=== PATIENT | female | born 1950 ===

== ENCOUNTER 2017-03-24 13:09 | Emergency (ER) | payer MEDICARE, MEDICAID ==
[2017-03-24 13:15] VITALS: TEMP 98.6
[2017-03-24] MEDS ORDERED: Albuterol-Ipratrop 3 mg / 0.5 (3 ml) UD IH STA (13:26)
[2017-03-24] MEDS ORDERED: Albuterol-Ipratrop 3 mg / 0.5 (3 ml) UD INH STA (13:26)
[2017-03-24] MEDS ORDERED: Sodium Chloride 0.9% 500 ML IV SCH (13:30)
--- NOTE | 2017-03-24 13:31 | ED PDOC ---
HPI: SOB/CHF/COPD Time Seen by Provider: 03/24/17 13:16 Chief Complaint (Nursing): Shortness Of Breath Chief Complaint (Provider): Dyspnea History Per: Patient History/Exam Limitations: no limitations Onset/Duration Of Symptoms: Days (5) Current Symptoms Are (Timing): Still Present Additional Complaint(s): Pt. with wheezes, cough, congestion, runny nose, weakness all over. B/L rib pain. No abd pain, nausea, vomit, diarrhea. No back pain. No numbness, tingles, headaches, vision changes. Past Medical History Reviewed: Nursing Documentation, Vital Signs Vital Signs: Last Vital Signs Temp 98.6 F 03/24/17 13:12 Pulse 81 03/24/17 13:12 Resp 18 03/24/17 14:10 BP 124/83 03/24/17 13:12 Pulse Ox 98 03/24/17 14:10 - Medical History PMH: Asthma, CVA, HTN, Hypercholesterolemia - Family History Family History: States: Unknown Family Hx - Living Arrangements Living Arrangements: With Family - Home Medications Home Medications: Ambulatory Orders Medication Instructions Recorded Albuterol Sulfate [Proair Hfa] 0.09 mg IH Q6H PRN #2 inh 03/24/17 Azithromycin [Zithromax] 250 mg PO DAILY 5 Days tab 03/24/17 Benzonatate [Tessalon Perles] 100 mg PO BID PRN 5 Days sgl 03/24/17 predniSONE [predniSONE Tab] 20 mg PO BID 5 Days tab 03/24/17 - Allergies Allergies/Adverse Reactions: Allergies Allergy/AdvReac Type Severity Reaction Status Date / Time No Known Allergies Allergy Verified 03/24/17 13:10 Review of Systems ROS Statement: Except As Marked, All Systems Reviewed And Found Negative Constitutional: Positive for: Weakness ENT: Positive for: Nose Pain, Nose Discharge, Nose Congestion Respiratory: Positive for: Cough, Shortness of Breath, Sputum, Wheezing Neurological: Positive for: Weakness Physical Exam - Reviewed Nursing Documentation Reviewed: Yes Vital Signs Reviewed: Yes - Physical Exam Appears: Positive for: Non-toxic, No Acute Distress Head Exam: Positive for: ATRAUMATIC, NORMAL INSPECTION, NORMOCEPHALIC Skin: Positive for: Normal Color, Warm, DRY Eye Exam: Positive for: EOMI, Normal appearance, PERRL ENT: Positive for: Nasal Congestion Neck: Positive for: Normal, Painless ROM Cardiovascular/Chest: Positive for: Regular Rate, Rhythm Respiratory: Positive for: Wheezing Gastrointestinal/Abdominal: Positive for: Normal Exam, Bowel Sounds, Soft. Negative for: Tenderness Back: Positive for: Normal Inspection. Negative for: L CVA Tenderness, R CVA Tenderness Extremity: Positive for: Normal ROM. Negative for: Tenderness, Pedal Edema Neurologic/Psych: Positive for: Alert, Oriented - Laboratory Results Result Diagrams: 03/24/17 13:34 03/24/17 13:34 Interpretation Of Abn Labs: no acute - ECG ECG: Positive for: Interpreted By Me, Viewed By Me ECG Rhythm: Positive for: Normal QRS, Normal ST Segment, Sinus Rhythm O2 Sat by Pulse Oximetry: 100 Pulse Ox Interpretation: Normal - Radiology X-Ray: Read By Radiologist X-Ray Interpretation: No Acute Disease - Progress ED Course And Treament: 1459: Stable. AAOx3. Pain free. Tolerated PO. Smiling. Fu with pcp. Disposition - Clinical Impression Clinical Impression: Asthma, Bronchitis - Patient ED Disposition Is Patient to be Admitted: No Counseled Patient/Family Regarding: Studies Performed, Diagnosis, Need For Followup, Rx Given - Disposition Referrals: [facility] [Outside] - 03/25/17 Disposition: Routine/Home Disposition Time: 15:00 Condition: STABLE Additional Instructions: Return if not better in 3 days. Prescriptions: Albuterol Sulfate [Proair Hfa] 0.09 mg IH Q6H PRN #2 inh PRN Reason: Wheezing Azithromycin [Zithromax] 250 mg PO DAILY 5 Days tab Benzonatate [Tessalon Perles] 100 mg PO BID PRN 5 Days sgl PRN Reason: Cough predniSONE [predniSONE Tab] 20 mg PO BID 5 Days tab Instructions: Acute Bronchitis (ED), Asthma (ED) Forms: [employer] (Kinyarwanda) Print Language: KINYARWANDA
[2017-03-24] MEDS ORDERED: Albuterol-Ipratrop 3 mg / 0.5 (3 ml) UD ONE (13:35)
[2017-03-24 13:53] LABS: ABG ALLEN TEST YES; ARTERIAL BLOOD GAS HCO3 27.1 mmol/L (21-28); ARTERIAL BLOOD GAS O2 SAT 100.3 % (95-98); ARTERIAL BLOOD GAS PCO2 40 mm/Hg (35-45); ARTERIAL BLOOD GAS PH 7.44 (7.35-7.45); ARTERIAL BLOOD GAS PO2 90 mm/Hg (80-100); ARTERIAL BLOOD GAS TCO2 28.4 mmol/L (22-28)
[2017-03-24 14:11] LABS: BASO % 0.3 % (0.0-2.0); EOS # 0.1 K/uL (0.0-0.7); EOS % 1.6 % (0.0-4.0); LYMPH # 3.5 K/uL (1.0-4.3); LYMPH % 46.6 % (20.0-40.0); MEAN CELL VOLUME 86.2 fl (81.0-99.0); MEAN CORPUSCULAR HEMOGLOBIN 27.9 pg (27.0-31.0); MEAN CORPUSCULAR HGB CONC 32.4 g/dL (33.0-37.0); MONO # 0.8 K/uL (0.0-0.8); MONO % 10.1 % (0.0-10.0); NEUT # 3.1 K/uL (1.8-7.0); NEUT % 41.4 % (50.0-75.0); NRBC % 0.1 % (0.0-0.0); RBC 4.68 Mil/uL (3.80-5.20); RED CELL DISTRIBUTION WIDTH 13.1 % (11.5-14.5); WHITE BLOOD COUNT 7.6 K/uL (4.8-10.8)
[2017-03-24 14:19] LABS: PARTIAL THROMBOPLASTIN TIME 28.7 Seconds (25.6-37.1); PROTHROMBIN TIME 11.6 Seconds (9.8-13.1)
[2017-03-24 14:21] LABS: ALB/GLOB RATIO 1.3 (1.0-2.1); ALBUMIN 4.5 g/dL (3.5-5.0); ALT/SGPT 30 U/L (9-52); AST/SGOT 28 U/L (14-36); BLOOD UREA NITROGEN 15 mg/dl (7-17); CALCIUM 9.8 mg/dL (8.4-10.2); GFR AFRICAN-AMERICAN > 60; GFR NON-AFRICAN AMERICAN > 60; MAGNESIUM 2.1 MG/DL (1.6-2.3)
--- NOTE | 2017-03-24 14:24 | RAD ---
HISTORY: Sepsis Patient COMPARISON: No prior. FINDINGS: LUNGS: There are low lung volumes with mild crowding appreciated at the lung bases. No appreciable focal infiltrate is noted. PLEURA: No significant pleural effusion identified, no pneumothorax apparent. CARDIOVASCULAR: Heart is top normal in size. Aorta is normal in size. No CHF is seen. OSSEOUS STRUCTURES: No significant abnormalities. VISUALIZED UPPER ABDOMEN: Normal. OTHER FINDINGS: None. IMPRESSION: Poor expiratory effort with crowding at the lung bases. No focal infiltrate seen.
[2017-03-24 14:31] LABS: B-TYPE NATRIURETIC PEPTIDE 20.3 pg/ml (0-900)
[2017-03-24 15:19] VITALS: BP 116/69; PULSE 62; RESP 17; O2SAT 98
--- NOTE | 2017-03-25 08:54 | CARD ---
APPROVED REPORT EKG Measurement Heart [id number] <Conclusion> Normal sinus rhythm Left axis deviation Abnormal ECG
== END 2017-03-24 15:25 | disposition home or self-care (01) ==
LOC: H.ER 13:09
DX: J20.9 Acute bronchitis, unspecified (principal); J45.909 Unspecified asthma, uncomplicated; E78.00 Pure hypercholesterolemia, unspecified; I10 Essential (primary) hypertension; Z86.73 Personal history of transient ischemic attack (TIA), and cerebral infarction without residual deficits
CPT/HCPCS: 36600; 71045; 80053; 82803; 83735; 83880; 84100; 84484; 85025; 85610; 85730; 87040; 87804; 93005; 94640; 96360; 99285; J7040

== ENCOUNTER 2018-06-24 23:56 | Inpatient (IN) | payer MEDICARE, MEDICAID ==
[2018-06-25] MEDS ORDERED: Sodium Chloride 0.9% 1,000 ML IV STA (00:24)
--- NOTE | 2018-06-25 00:38 | ED PDOC ---
HPI: Abdomen Time Seen by Provider: 06/25/18 00:02 Chief Complaint (Nursing): Abdominal Pain Chief Complaint (Provider): Abdominal Pain History Per: Patient History/Exam Limitations: no limitations Onset/Duration Of Symptoms: Hrs (x 7) Current Symptoms Are (Timing): Still Present Context: Food Location Of Pain/Discomfort: Diffuse Quality Of Discomfort: "Pain" Associated Symptoms: Vomiting, Constipation (intermittent) Alleviating Factors: None Last Bowel Movement: Today Additional Complaint(s): 68 year old female with a history of HTN and high cholesterol presents to the ED with sudden onset abdominal pain 7 hours prior to arrival associated with two episodes of non-bloody, non-bilious vomiting and abdominal distension. Patient reports a small bowel movement today, but otherwise intermittent constipation. She took Pepcid and Dexilant, her medications for gastritis, with no relief. Patient also took Mylanta and vomited. She is currently on medications for a bladder infection. Otherwise, she denies diarrhea and offers no additional complaints. PMD: Dr. Jarquin Past Medical History Reviewed: Historical Data, Nursing Documentation, Vital Signs Vital Signs: Last Vital Signs Temp 98.6 F 06/24/18 23:58 Pulse 62 06/24/18 23:58 Resp 18 06/24/18 23:58 BP 143/87 06/24/18 23:58 Pulse Ox 98 06/24/18 23:58 - Medical History PMH: Asthma, CVA, HTN, Hypercholesterolemia - Surgical History Surgical History: Cholecystectomy Other surgeries: hysterectomy - Family History Family History: States: Unknown Family Hx - Social History Current smoker - smoking cessation education provided: No Alcohol: None Drugs: Denies - Home Medications Home Medications: Ambulatory Orders Medication Instructions Recorded Alprazolam [Xanax] 0.5 mg PO PRN PRN 06/25/18 Carbamazepine [Carbatrol] 200 mg PO DAILY 06/25/18 Clopidogrel [Plavix] 75 mg PO DAILY 06/25/18 Famotidine [Pepcid] 20 mg PO DAILY 06/25/18 Meclizine [Meclizine*] 25 mg PO DAILY 06/25/18 Nitrofurantoin Macrocrystal 50 mg PO BID 06/25/18 [Macrodantin] Rosuvastatin Calcium [Crestor] 5 mg PO DAILY 06/25/18 amLODIPine [Norvasc] 5 mg PO DAILY 06/25/18 carBAMazepine [TEGretol-XR] 200 mg pe PO DAILY 06/25/18 - Allergies Allergies/Adverse Reactions: Allergies Allergy/AdvReac Type Severity Reaction Status Date / Time No Known Allergies Allergy Verified 03/24/17 13:10 Review of Systems ROS Statement: Except As Marked, All Systems Reviewed And Found Negative Gastrointestinal: Positive for: Vomiting (x 2), Abdominal Pain, Constipation (intermittent), Other (distension). Negative for: Diarrhea Physical Exam - Reviewed Nursing Documentation Reviewed: Yes Vital Signs Reviewed: Yes - Physical Exam Appears: Positive for: In Acute Distress (mild painful distress) Head Exam: Positive for: ATRAUMATIC, NORMOCEPHALIC Skin: Positive for: Warm, Dry Eye Exam: Positive for: EOMI, PERRL ENT: Negative for: Pharyngeal Erythema, Tonsillar Exudate Neck: Positive for: Painless ROM, Supple Cardiovascular/Chest: Positive for: Regular Rate, Rhythm. Negative for: Murmur Respiratory: Positive for: Normal Breath Sounds. Negative for: Respiratory Distress Gastrointestinal/Abdominal: Positive for: Soft, Tenderness (diffuse), Distended (diffusely ), Guarding (voluntary). Negative for: Mass (palpable), Rebound Back: Positive for: Normal Inspection. Negative for: L CVA Tenderness, R CVA Tenderness Extremity: Positive for: Normal ROM. Negative for: Deformity Lymphatic: Negative for: Adenopathy Neurological/Psych: Positive for: Awake, Alert. Negative for: Motor/Sensory Deficits - Laboratory Results Result Diagrams: 06/28/18 05:40 06/28/18 05:40 - ECG O2 Sat by Pulse Oximetry: 98 (RA) Pulse Ox Interpretation: Normal Medical Decision Making Medical Decision Makin:19 Impression: abdominal pain with distension Differential diagnoses include but are not limited to: obstruction, reflux, gastroenteritis hernia, colitis, diverticulitis Initial Plan: --CT Abd & Pelvis --Obstructive series [RAD] --CBC --CMP --Lipase --Lactic acid --Blood cx --Urine cx --UA --NS IV 1,000 mls --Zofran 8 mg IV 02:17 CT Abd & Pelvis COMMENTS: Uncomplicated colonic diverticulosis. Moderate partial small bowel obstruction. Transition zone in the right lower quadrant. No evidence of bowel perforation or pneumatosis intestinalis. Moderate amount of fecal residue is noted in the large bowel suggestive of constipation. Hysterectomy. The liver is of uniform attenuation without mass or defect. There is no intra or extrahepatic biliary ductal dilatation. The spleen is normal. The gallbladder is surgically absent. The pancreas is of normal contour and attenuation characteristics. There is no evidence of adrenal mass. Both kidneys demonstrate prompt and equal nephrograms. The kidneys are normal in size, shape and configuration. There is no evidence of renal or ureteral mass. No renal or ureteral calculi are identified. There is no hydroureter or hydronephrosis. No evidence for appendicitis. There is no evidence of abdominal ascites or lymphadenopathy. There is no evidence of intrinsic or extrinsic bladder mass. There is no pelvic ascites or lymphadenopathy. Images of the lung bases show no evidence of pleural or parenchymal mass. There are no pleural effusions. The bony structures are free of lytic or blastic lesions. Grade 1 anterolisthesis of L5 on S1 measuring 3.2 mm. IMPRESSION: Uncomplicated colonic diverticulosis. Moderate partial small bowel obstruction. Transition zone in the right lower quadrant. No evidence of bowel perforation or pneumatosis intestinalis. Moderate amount of fecal residue is noted in the large bowel suggestive of constipation. Hysterectomy. 02:26 Discussed case with Stephan Norton, ADVERTISING DISPLAY ROTATOR for Dr. Rolle, for admission Also discussed with Dr. Zapien, surgical asst for Dr. Vallejo. Patient will be admitted to the hospital. Discussed findings and plan of care with patient and her who both agreed. Scribe Attestation: Documented by Meredith Abreu, acting as a scribe for Yasmin Singh MD Provider Scribe Attestation: All medical record entries made by the Scribe were at my direction and personally dictated by me. I have reviewed the chart and agree that the record accurately reflects my personal performance of the history, physical exam, medical decision making, and the department course for this patient. I have also personally directed, reviewed, and agree with the discharge instructions and disposition Disposition - Clinical Impression Clinical Impression: Small bowel obstruction, partial - Patient ED Disposition Is Patient to be Admitted: Yes - Disposition Disposition Time: 02:26 Condition: FAIR - Pt Status Changed To: Hospital Disposition Of: Inpatient - Admit Certification Admit to Inpatient:: After my assessment, the patient will require hospitalization for at least two midnights. This is because of the severity of symptoms shown, intensity of services needed, and/or the medical risk in this patient being treated as an outpatient. - POA Present On Arrival: None
[2018-06-25 01:02] LABS: BASO # 0.1 K/uL (0.0-0.2); BASO % 0.8 % (0.0-2.0); EOS % 0.4 % (0.0-4.0); HEMOGLOBIN 13.4 g/dL (12.0-16.0); LYMPH # 1.7 K/uL (1.0-4.3); LYMPH % 12.6 % (20.0-40.0); MEAN CELL VOLUME 86.7 fl (81.0-99.0); MEAN CORPUSCULAR HEMOGLOBIN 28.5 pg (27.0-31.0); MEAN CORPUSCULAR HGB CONC 32.9 g/dL (33.0-37.0); MONO # 0.8 K/uL (0.0-0.8); NEUT # 10.7 K/uL (1.8-7.0); NEUT % 80.2 % (50.0-75.0); NRBC % 0.1 % (0.0-0.0); RBC 4.71 Mil/uL (3.80-5.20); RED CELL DISTRIBUTION WIDTH 13.1 % (11.5-14.5); WHITE BLOOD COUNT 13.4 K/uL (4.8-10.8)
[2018-06-25 01:07] LABS: PROTHROMBIN TIME 11.6 Seconds (9.8-13.1)
[2018-06-25 01:09] LABS: PARTIAL THROMBOPLASTIN TIME 25.9 Seconds (25.6-37.1)
[2018-06-25 01:12] LABS: ALB/GLOB RATIO 1.4 (1.0-2.1); ALBUMIN 4.8 g/dL (3.5-5.0); ALT/SGPT 31 U/L (9-52); AST/SGOT 35 U/L (14-36); BLOOD UREA NITROGEN 12 mg/dl (7-17); CALCIUM 9.6 mg/dL (8.4-10.2); GFR NON-AFRICAN AMERICAN > 60; LIPASE 64 U/L (23-300)
[2018-06-25] MEDS ORDERED: Iohexol 300 100 ML IJ ONE (01:21)
[2018-06-25] MEDS ORDERED: Sodium Chloride 0.9% 50 ML IV ONE (01:22)
[2018-06-25] MEDS ORDERED: Morphine 4 MG/ML VIAL IVP STA (01:52)
[2018-06-25] MEDS ORDERED: Morphine 4 MG/ML VIAL ONE (01:55)
[2018-06-25 02:04] LABS: SQUAMOUS EPITHIAL < 1 /hpf (0-5); URINE BILIRUBIN NEGATIVE (NEGATIVE); URINE BLOOD NEGATIVE (NEGATIVE); URINE CLARITY SLIGHTY-CLOUDY (Clear); URINE COLOR YELLOW (YELLOW); URINE GLUCOSE (UA) NEG (NEGATIVE); URINE LEUKOCYTE ESTERASE NEG Leu/uL (Negative); URINE PROTEIN NEGATIVE (NEGATIVE); URINE UROBILINOGEN 0.2-1.0 mg/dL (0.2-1.0)
--- NOTE | 2018-06-25 02:47 | CP.PCM.CON ---
<ZapienJoshua - Last Filed: 06/25/18 06:37> History of Present Illness - History of Present Illness History of Present Illness: 68F with PMHx of HTN, hyperlipidemia, stroke, presents to [facility] ED with complaints of abdominal pain. Patient reports abdominal pain began yesterday. She reports having three bouts of non bloody emesis prior to arriving to hospital. Patient also complained of progressive abdominal distention which prompted her to come to hospital. Patient states she had a small bowel movement yesterday. At time of examination, patient reported feeling better since receiving analgesics and anti-emetics. States pain is mainly along mid epigastric region. Patient also reported passing some flatus. She denies chest pain/SOB, diarrhea, dysuria. PMHx: as stated above PSH: open cholecystectomy, FORTINO All: NKDA Review of Systems - Review of Systems All systems: reviewed and no additional remarkable complaints except Review of Systems: as per HPI Past Patient History - Past Social History Alcohol: None Drugs: Denies - CARDIAC Hx Hypercholesterolemia: Yes Hx Hypertension: Yes - PULMONARY Hx Asthma: Yes - NEUROLOGICAL HX Cerebrovascular Accident: Yes - PSYCHIATRIC Hx Substance Use: No - SURGICAL HISTORY Hx Cholecystectomy: Yes - ANESTHESIA Hx Anesthesia: Yes Hx Anesthesia Reactions: No Meds Allergies/Adverse Reactions: Allergies Allergy/AdvReac Type Severity Reaction Status Date / Time No Known Allergies Allergy Verified 03/24/17 13:10 - Medications Medications: Current Medications Sodium Chloride (Sodium Chloride 0.9%) 1,000 mls @ 150 mls/hr IV .Q6H40M STA Stop: 06/25/18 07:03 Last Admin: 06/25/18 00:50 Dose: 150 mls/hr Physical Exam - Constitutional Appears: No Acute Distress - Head Exam Head Exam: NORMOCEPHALIC - Eye Exam Eye Exam: EOMI, Normal appearance - ENT Exam ENT Exam: Mucous Membranes Moist - Respiratory Exam Respiratory Exam: NORMAL BREATHING PATTERN - Cardiovascular Exam Cardiovascular Exam: +S1, +S2 - GI/Abdominal Exam GI & Abdominal Exam: Soft, Tenderness. absent: Distended, Guarding - Neurological Exam Neurological exam: Alert, Oriented x3 - Psychiatric Exam Psychiatric exam: Normal Mood - Skin Skin Exam: Dry, Intact, Warm Results - Vital Signs Recent Vital Signs: Last Vital Signs Temp 98.6 F 06/24/18 23:58 Pulse 62 06/24/18 23:58 Resp 18 06/24/18 23:58 BP 143/87 06/24/18 23:58 Pulse Ox 98 06/25/18 02:32 - Labs Result Diagrams: 06/25/18 00:40 06/25/18 00:40 Labs: Laboratory Results - last 24 hr 06/25/18 06/25/18 06/25/18 00:40 00:40 00:40 WBC 13.4 H D RBC 4.71 Hgb 13.4 Hct 40.8 MCV 86.7 MCH 28.5 MCHC 32.9 L RDW 13.1 Plt Count 245 MPV 9.0 Neut % (Auto) 80.2 H Lymph % (Auto) 12.6 L [place] % (Auto) 6.0 Eos % (Auto) 0.4 Baso % (Auto) 0.8 Neut # (Auto) 10.7 H Lymph # (Auto) 1.7 [place] # (Auto) 0.8 Eos # (Auto) 0.0 Baso # (Auto) 0.1 PT INR APTT Sodium 137 Potassium 4.3 Chloride 97 L Carbon Dioxide 31 H Anion Gap 13 BUN 12 Creatinine 0.6 L Est GFR ( Amer) > 60 Est GFR (Non-Af Amer) > 60 Random Glucose 114 H Lactic Acid 1.2 Calcium 9.6 Total Bilirubin 0.5 AST 35 ALT 31 Alkaline Phosphatase 133 H D Total Protein 8.2 Albumin 4.8 Globulin 3.4 Albumin/Globulin Ratio 1.4 Lipase 64 Urine Color Urine Clarity Urine pH Ur Specific [place] Urine Protein Urine Glucose (UA) Urine Ketones Urine Blood Urine Nitrate Urine Bilirubin Urine Urobilinogen Ur Leukocyte Esterase Urine RBC (Auto) Urine Microscopic WBC Ur Squamous Epith Cells Blood Type Antibody Screen BBK History Checked 06/25/18 06/25/18 06/25/18 00:40 00:40 01:53 WBC RBC Hgb Hct MCV MCH MCHC RDW Plt Count MPV Neut % (Auto) Lymph % (Auto) [place] % (Auto) Eos % (Auto) Baso % (Auto) Neut # (Auto) Lymph # (Auto) [place] # (Auto) Eos # (Auto) Baso # (Auto) PT 11.6 INR 1.0 APTT 25.9 Sodium Potassium Chloride Carbon Dioxide Anion Gap BUN Creatinine Est GFR ( Amer) Est GFR (Non-Af Amer) Random Glucose Lactic Acid Calcium Total Bilirubin AST ALT Alkaline Phosphatase Total Protein Albumin Globulin Albumin/Globulin Ratio Lipase Urine Color Yellow Urine Clarity Slighty-cloudy Urine pH 9.0 Ur Specific [place] 1.015 Urine Protein Negative Urine Glucose (UA) Neg Urine Ketones Trace Urine Blood Negative Urine Nitrate Negative Urine Bilirubin Negative Urine Urobilinogen 0.2-1.0 Ur Leukocyte Esterase Neg Urine RBC (Auto) 1 Urine Microscopic WBC 1 Ur Squamous Epith Cells < 1 Blood Type O POSITIVE Antibody Screen Negative BBK History Checked No verified bt Assessment & Plan - Assessment and Plan (Free Text) Assessment: 68Fw pSBO with transition point in RLQ Plan: Conservative management NPO IVF Analgesics Anti-emetics Encourage ambulation Will monitor Further recs per Dr. Yoni Amaro PGY3 <Fortunato Vallejo - Last Filed: 06/25/18 12:37> Meds - Medications Medications: Current Medications Famotidine (Pepcid) 20 mg IV Q12 [facility] Lactated Ringer's (Lactated Ringer's) 1,000 mls @ 90 mls/hr IV .Q11H7M FIONA Last Admin: 06/25/18 10:40 Dose: 90 mls/hr Morphine Sulfate (Morphine) 2 mg IVP Q6 PRN PRN Reason: Pain, moderate (4-7) Ondansetron HCl (Zofran Inj) 4 mg IVP Q4 PRN PRN Reason: Nausea/Vomiting Last Admin: 06/25/18 09:08 Dose: 4 mg Sodium Phosphate (Fleet Enema) 135 ml MT ONCE ONE Stop: 06/25/18 12:33 Results - Vital Signs Recent Vital Signs: Last Vital Signs Temp 97.7 F 06/25/18 08:28 Pulse 53 L 06/25/18 08:28 Resp 18 06/25/18 08:28 BP 133/80 06/25/18 08:28 Pulse Ox 100 06/25/18 08:28 - Labs Result Diagrams: 06/25/18 00:40 06/25/18 00:40 Labs: Laboratory Results - last 24 hr 06/25/18 06/25/18 06/25/18 00:40 00:40 00:40 WBC 13.4 H D RBC 4.71 Hgb 13.4 Hct 40.8 MCV 86.7 MCH 28.5 MCHC 32.9 L RDW 13.1 Plt Count 245 MPV 9.0 Neut % (Auto) 80.2 H Lymph % (Auto) 12.6 L [place] % (Auto) 6.0 Eos % (Auto) 0.4 Baso % (Auto) 0.8 Neut # (Auto) 10.7 H Lymph # (Auto) 1.7 [place] # (Auto) 0.8 Eos # (Auto) 0.0 Baso # (Auto) 0.1 PT INR APTT Sodium 137 Potassium 4.3 Chloride 97 L Carbon Dioxide 31 H Anion Gap 13 BUN 12 Creatinine 0.6 L Est GFR ( Amer) > 60 Est GFR (Non-Af Amer) > 60 Random Glucose 114 H Lactic Acid 1.2 Calcium 9.6 Total Bilirubin 0.5 AST 35 ALT 31 Alkaline Phosphatase 133 H D Total Protein 8.2 Albumin 4.8 Globulin 3.4 Albumin/Globulin Ratio 1.4 Lipase 64 Urine Color Urine Clarity Urine pH Ur Specific [place] Urine Protein Urine Glucose (UA) Urine Ketones Urine Blood Urine Nitrate Urine Bilirubin Urine Urobilinogen Ur Leukocyte Esterase Urine RBC (Auto) Urine Microscopic WBC Ur Squamous Epith Cells Blood Type Blood Type Confirm Antibody Screen BBK History Checked 06/25/18 06/25/18 06/25/18 00:40 00:40 01:53 WBC RBC Hgb Hct MCV MCH MCHC RDW Plt Count MPV Neut % (Auto) Lymph % (Auto) [place] % (Auto) Eos % (Auto) Baso % (Auto) Neut # (Auto) Lymph # (Auto) [place] # (Auto) Eos # (Auto) Baso # (Auto) PT 11.6 INR 1.0 APTT 25.9 Sodium Potassium Chloride Carbon Dioxide Anion Gap BUN Creatinine Est GFR ( Amer) Est GFR (Non-Af Amer) Random Glucose Lactic Acid Calcium Total Bilirubin AST ALT Alkaline Phosphatase Total Protein Albumin Globulin Albumin/Globulin Ratio Lipase Urine Color Yellow Urine Clarity Slighty-cloudy Urine pH 9.0 Ur Specific [place] 1.015 Urine Protein Negative Urine Glucose (UA) Neg Urine Ketones Trace Urine Blood Negative Urine Nitrate Negative Urine Bilirubin Negative Urine Urobilinogen 0.2-1.0 Ur Leukocyte Esterase Neg Urine RBC (Auto) 1 Urine Microscopic WBC 1 Ur Squamous Epith Cells < 1 Blood Type O POSITIVE Blood Type Confirm Antibody Screen Negative BBK History Checked No verified bt 06/25/18 09:40 WBC RBC Hgb Hct MCV MCH MCHC RDW Plt Count MPV Neut % (Auto) Lymph % (Auto) [place] % (Auto) Eos % (Auto) Baso % (Auto) Neut # (Auto) Lymph # (Auto) [place] # (Auto) Eos # (Auto) Baso # (Auto) PT INR APTT Sodium Potassium Chloride Carbon Dioxide Anion Gap BUN Creatinine Est GFR ( Amer) Est GFR (Non-Af Amer) Random Glucose Lactic Acid Calcium Total Bilirubin AST ALT Alkaline Phosphatase Total Protein Albumin Globulin Albumin/Globulin Ratio Lipase Urine Color Urine Clarity Urine pH Ur Specific [place] Urine Protein Urine Glucose (UA) Urine Ketones Urine Blood Urine Nitrate Urine Bilirubin Urine Urobilinogen Ur Leukocyte Esterase Urine RBC (Auto) Urine Microscopic WBC Ur Squamous Epith Cells Blood Type Blood Type Confirm O POSITIVE Antibody Screen BBK History Checked Assessment & Plan - Assessment and Plan (Free Text) Plan: All medical record entries made by the resident were at my direction and personally dictated by me. I have reviewed the chart and agree that the record accurately reflects my personal performance of the history, physical exam, medical decision making. On review of imaging, she has gas and stool down to rectal. However, on CT scan there is a clear transition from distended to non-distended small bowel. She notes a history of lower abdominal surgery which may be predispode her to adhesions. Ordered Fleets enema. If she does not open up over the next 24-48 hours, she may need diagnostic laparoscopy.
--- NOTE | 2018-06-25 09:49 | RAD ---
Date of service: 06/25/2018 PROCEDURE: Radiographs of the chest and abdomen (obstructive series) HISTORY: abd pain r/o sbo COMPARISON: No prior. TECHNIQUE: AP radiograph of the chest, with upright and supine radiographs of the abdomen. 3 views obtained. FINDINGS: CHEST: Lungs: Clear. Cardiovascular: Heart size top normal. No pulmonary vascular congestion. There is presence of aortic atherosclerotic calcification on x-ray. Pleura: No pleural fluid. No pneumothorax. Other findings: Possible bone island right humerus ABDOMEN AND PELVIS: Bowel: Right upper quadrant cholecystectomy clips.. Multiple small bowel dilated loops a distal small bowel obstruction is suspect. No colonic dilatation seen. Free air: None. Bones: Degenerative thoraco lumbar spondylosis. Bilateral hip arthrosis. And inferior lumbar facet hypertrophic arthrosis. Other findings: Some of the mottled density in the right abdomen may even be fecalization of small bowel loops as additional loops are seen right lateral to it. IMPRESSION: No pulmonary infiltrate. Findings concerning for a distal small bowel obstruction. No free air seen Other findings as above. These findings are in agreement with the preliminary ER reading.
--- NOTE | 2018-06-25 10:06 | CT ---
Date of service: 06/25/2018 PROCEDURE: CT Abdomen and Pelvis with contrast HISTORY: abdominal pain COMPARISON: None. TECHNIQUE: Contrast dose: 95 cc of Omnipaque 300 Radiation dose: Total exam DLP = 518.75 mGy-cm. This CT exam was performed using one or more of the following dose reduction techniques: Automated exposure control, adjustment of the mA and/or kV according to patient size, and/or use of iterative reconstruction technique. FINDINGS: LOWER THORAX: Approximately 1 cm right retroareolar breast nodular density is seen. Its significance, if any chronicity-are unknown. Correlate with mammography and ultrasound. LIVER: Unremarkable. No gross lesion or ductal dilatation. GALLBLADDER AND BILE DUCTS: Status post cholecystectomy gallbladder fossa clips present. No suspected dilated ducts. PANCREAS: Unremarkable. No gross lesion or ductal dilatation. SPLEEN: Unremarkable. ADRENALS: Unremarkable. No mass. KIDNEYS AND URETERS: Unremarkable. No hydronephrosis. No solid mass. VASCULATURE: Unremarkable. No aortic aneurysm. No aortic atherosclerotic calcification or mural plaque present. There is some atherosclerotic calcification in the right common iliac artery. BOWEL: Small bowel dilatation. Including right-sided small bowel fecalization. The transition point appears in the right lower abdomen no obstructing mass is identified.. No pneumatosis. No free air seen. The colon is not distended.. A few right-sided colonic diverticuli are noted. No complicating diverticulitis suggested. Moderate stool is seen also in the nondistended right colon APPENDIX: Normal appendix. PERITONEUM: Unremarkable. No free fluid. No free air. LYMPH NODES: Unremarkable. No enlarged lymph nodes. BLADDER: Unremarkable. REPRODUCTIVE: Unremarkable. BONES: Lumbar spondylosis, with probable elements of thoracolumbar and lumbosacral additional elements. OTHER FINDINGS: Minimal anterior subluxation of L4 relative to L5. No spondylolysis. Status laxity from associated facet hypertrophic arthrosis is inferred. Minimal disc space narrowing posteriorly at L5-S1. No fracture seen. IMPRESSION: Findings concerning for a distal small bowel obstruction. No pneumatosis seen. No free air seen. Transition point likely in the right lower abdomen. Right small-bowel fecalization. Uncomplicated right colonic diverticulosis. The above findings were conveyed by the preliminary [facility] report. This portion is concordant. Incidentally noted is a right breast retroareolar haseeb density of unknown, if any clinical significance. This was not mentioned in the preliminary [facility] report. Correlation with mammography and ultrasound is advised. Comments: Study marked for PA review .
[2018-06-25] MEDS: Lactated Ringer's 1,000 ML IV SCH ×2 (10:40→20:59)
--- NOTE | 2018-06-25 13:50 | CP.PCM.CON ---
History of Present Illness - History of Present Illness History of Present Illness: 68 year old female with a history of HTN and high cholesterol presents to the ED with sudden onset abdominal pain 7 hours prior to arrival associated with two episodes of non-bloody, non-bilious vomiting and abdominal distension. Referred for ID eval and antibiotic management - Medical History PMH: Asthma, CVA, HTN, Hypercholesterolemia - Surgical History Surgical History: Cholecystectomy Other surgeries: hysterectomy FH- + ovarian CA DM Review of Systems - Constitutional Constitutional: As Per HPI - EENT Eyes: absent: As Per HPI, Blind Spots, Blurred Vision, Change in Vision, Decreased Night Vision, Diplopia, Discharge, Dry Eye, Exophthalmos, Floaters, Irritation, Itchy Eyes, Loss of Peripheral Vision, Pain, Photophobia, Requires Corrective Lenses, Sees Flashes, Spots in Vision, Tunnel Vision, Other Visual Disturbances, Loss of Vision, Other Ears: absent: As Per HPI, Decreased Hearing, Ear Discharge, Ear Pain, Tinnitus, Abnormal Hearing, Disequilibrium, Dizziness, Other Nose/Mouth/Throat: absent: As Per HPI, Epistaxis, Nasal Congestion, Nasal Discharge, Nasal Obstruction, Nasal Trauma, Nose Pain, Post Nasal Drip, Sinus Pain, Sinus Pressure, Bleeding Gums, Change in Voice, Dental Pain, Dry Mouth, Dysphagia, Halitosis, Hoarsness, Lip Swelling, Mouth Lesions, Mouth Pain, Odynophagia, Sore Throat, Throat Swelling, Tongue Swelling, Facial Pain, Neck Pain, Neck Mass, Other - Breasts Breasts: absent: As Per HPI, Change in Shape, Mass, Pain, Nipple Discharge, Nipple Inversion, Skin Changes, Swelling, Other - Cardiovascular Cardiovascular: absent: As Per HPI, Acrocyanosis, Chest Pain, Chest Pain at Rest, Chest Pain with Activity, Claudication, Diaphoresis, Dyspnea, Dyspnea on Exertion, Edema, Irregular Heart Rhythm, Pain Radiating to Arm/Neck/Jaw, Leg Edema, Leg Ulcers, Lightheadedness, Orthopnea, Palpitations, Paroxysmal Nocturnal Dyspnea, Pedal Edema, Radiating Pain, Rapid Heart Rate, Slow Heart Rate, Syncope, Other - Respiratory Respiratory: absent: As Per HPI, Cough, Dyspnea, Hemoptysis, Dyspnea on Exertion, Wheezing, Snoring, Stridor, Pain on Inspiration, Chest Congestion, Excessive Mucous Production, Change in Mucous Color, Pain with Coughing, Other - Gastrointestinal Gastrointestinal: As Per HPI - Genitourinary Genitourinary: absent: As Per HPI, Change in Urinary Stream, Difficulty Urinating, Dysuria, Flank Pain, Hematuria, Pyuria, Nocturia, Urinary Incontinence, Urinary Frequency, Urinary Hesitance, Urinary Urgency, Voiding Freq/Small Amts, Freq UTI, Hx Renal/Bladder Calculi, Hx /Renal Surgery, Bladder Distension, Other - Reproductive: Female Reproductive:Female: absent: As Per HPI, Amenorrhea, Amenorrhea/ Control, Currently Menstual, Cycle <21 Days, Cycle >35 Days, Cycle Variable, Menses 1-7 Days, Menses >/= 8 Days, Menses Variable, Cycle > 4 Weeks Between, No Menses for 6 Months, Heavy Menses, Light Menses, Normal Menses, Spotting Between Cycles, S/P Hysterectomy, Menopausal, Post Menopausal, Premenarche, Abnormal Vaginal Bleeding, Dysmenorrhea, Dyspareunia, Genital Lesions, Genital Pruritis, Pelvic Pain, Prolapse Symptoms, Sexual Dysfunction, Vaginal Discharge, Vaginal Dryness, Vaginal Odor, Vaginal Pruritis, Other - Menstruation Menstruation: absent: As Per HPI, Amenorrhea, Amenorrhea/ Control, Currently Menstual, Cycle <21 Days, Cycle >35 Days, Cycle Variable, Menses 1-7 Days, Menses >/= 8 Days, Menses Variable, Cycle > 4 Weeks Between, No Menses for 6 Months, Heavy Menses, Light Menses, Normal Menses, Spotting Between Cycles, S/P Hysterectomy, Menopausal, Post Menopausal, Premenarche, Abnormal Vaginal Bleeding, Dysmenorrhea, Other - Musculoskeletal Musculoskeletal: absent: As Per HPI, Abnormal Gait, Arthralgias, Atrophy, Back Pain, Deformity, Joint Swelling, Limited Range of Motion, Loss of Height, Muscle Cramps, Muscle Weakness, Myalgias, Neck Pain, Numbness, Radiating Pain into Limb, Stiffness, Tingling, Other - Integumentary Integumentary: absent: As Per HPI, Acne, Alopecia, Bleeding Lesions, Change in Hair, Change in Nails, Change in Pigmentation, Changing Lesions, Dry Skin, Erythema, Furuncle, Hirsutism, Lesions, New Lesions, Non-Healing Lesions, Photosensitivity, Pruritus, Rash, Skin Pain, Skin Ulcer, Sores, Striae, Swel ling, Unusual Bruising, Wounds, Jaundice, Other - Neurological Neurological: absent: As Per HPI, Abnormal Gait, Abnormal Hearing, Abnormal Movements, Abnormal Speech, Behavioral Changes, Burning Sensations, Confusion, Convulsions, Disequilibrium, Dizziness, Numbness, Focal Weakness, Frequent Falls, Headaches, Lack of Coordination, Loss of Vision, Memory Loss, Paresthesias, Radicular Pain, Restless Legs, Sensory Deficit, Syncope, Tingling, Tremor, Vertigo, Weakness, Other Visual Disturbances, Other - Psychiatric Psychiatric: absent: As Per HPI, Abnormal Sleep Pattern, Anhedonia, Anxiety, Auditory Hallucinations, Behavioral Changes, Change in Appetite, Change in Libido, Confusion, Depression, Difficulty Concentrating, Hallucinations, Homicidal Ideation, Hopelessness, Irritability, Memory Loss, Mood Swings, Panic Attacks, Paranoia, Suicidal Ideation, Visual Hallucinations, Tactile Hallucinations, Other - Endocrine Endocrine: absent: As Per HPI, Change in Body Appearance, Change in Libido, Cold Intolorance, Deepening of Voice, Excessive Sweating, Fatigue, Flushing, Heat Intolorance, Increase in Ring/Shoe/Hat Size, Palpitations, Polydipsia, Polyphagia, Polyuria, Other - Hematologic/Lymphatic Hematologic: absent: As Per HPI, Easy Bleeding, Easy Bruising, Lymphadenopathy, Other Past Patient History - Past Medical History & Family History Past Medical History?: Yes - Past Social History Alcohol: None Drugs: Denies - CARDIAC Hx Hypercholesterolemia: Yes Hx Hypertension: Yes - PULMONARY Hx Asthma: Yes - NEUROLOGICAL HX Cerebrovascular Accident: Yes - HEENT Hx HEENT Problems: No - RENAL Hx Chronic Kidney Disease: No - ENDOCRINE/METABOLIC Hx Endocrine Disorders: No - HEMATOLOGICAL/ONCOLOGICAL Hx Blood Disorders: No - INTEGUMENTARY Hx Dermatological Problems: No - MUSCULOSKELETAL/RHEUMATOLOGICAL Hx Musculoskeletal Disorders: No Hx Falls: No - GASTROINTESTINAL Hx Gastrointestinal Disorders: Yes Hx Gastritis: Yes - GENITOURINARY/GYNECOLOGICAL Hx Genitourinary Disorders: No - PSYCHIATRIC Hx Substance Use: No - SURGICAL HISTORY Hx Cholecystectomy: Yes - ANESTHESIA Hx Anesthesia: Yes Hx Anesthesia Reactions: No Meds Allergies/Adverse Reactions: Allergies Allergy/AdvReac Type Severity Reaction Status Date / Time No Known Allergies Allergy Verified 03/24/17 13:10 - Medications Medications: Current Medications Famotidine (Pepcid) 20 mg IV Q12 [facility] Lactated Ringer's (Lactated Ringer's) 1,000 mls @ 90 mls/hr IV .Q11H7M [facility] Last Admin: 06/25/18 10:40 Dose: 90 mls/hr Ketorolac Tromethamine (Toradol) 15 mg IVP Q6 PRN PRN Reason: Pain, moderate (4-7) Ondansetron HCl (Zofran Inj) 4 mg IVP Q4 PRN PRN Reason: Nausea/Vomiting Last Admin: 06/25/18 09:08 Dose: 4 mg Physical Exam - Constitutional Appears: Non-toxic, No Acute Distress, Chronically Ill - Head Exam Head Exam: ATRAUMATIC, NORMAL INSPECTION, NORMOCEPHALIC - Eye Exam Eye Exam: EOMI, Normal appearance, PERRL Pupil Exam: NORMAL ACCOMODATION, PERRL - ENT Exam ENT Exam: Mucous Membranes Moist, Normal Exam - Neck Exam Neck exam: Positive for: Normal Inspection - Respiratory Exam Respiratory Exam: Clear to Auscultation Bilateral, NORMAL BREATHING PATTERN - Cardiovascular Exam Cardiovascular Exam: REGULAR RHYTHM - GI/Abdominal Exam GI & Abdominal Exam: Diminished Bowel Sounds, Distended, Guarding, Normal Bowel Sounds, Soft. absent: Organomegaly, Pulsatile Mass, Rebound, Rigid, Tenderness - Rectal Exam Rectal Exam: Deferred - Exam Exam: NORMAL INSPECTION - Extremities Exam Extremities exam: Positive for: normal inspection - Back Exam Back exam: NORMAL INSPECTION - Neurological Exam Neurological exam: Alert, CN II-XII Intact, Normal Gait, Oriented x3, Reflexes Normal - Psychiatric Exam Psychiatric exam: Normal Affect, Normal Mood - Skin Skin Exam: Dry, Intact, Normal Color, Warm Results - Vital Signs Recent Vital Signs: Last Vital Signs Temp 97.7 F 06/25/18 08:28 Pulse 53 L 06/25/18 08:28 Resp 18 06/25/18 08:28 BP 133/80 06/25/18 08:28 Pulse Ox 100 06/25/18 08:28 - Labs Result Diagrams: 06/25/18 00:40 06/25/18 00:40 Labs: Laboratory Results - last 24 hr 06/25/18 06/25/18 06/25/18 00:40 00:40 00:40 WBC 13.4 H D RBC 4.71 Hgb 13.4 Hct 40.8 MCV 86.7 MCH 28.5 MCHC 32.9 L RDW 13.1 Plt Count 245 MPV 9.0 Neut % (Auto) 80.2 H Lymph % (Auto) 12.6 L [place] % (Auto) 6.0 Eos % (Auto) 0.4 Baso % (Auto) 0.8 Neut # (Auto) 10.7 H Lymph # (Auto) 1.7 [place] # (Auto) 0.8 Eos # (Auto) 0.0 Baso # (Auto) 0.1 PT INR APTT Sodium 137 Potassium 4.3 Chloride 97 L Carbon Dioxide 31 H Anion Gap 13 BUN 12 Creatinine 0.6 L Est GFR ( Amer) > 60 Est GFR (Non-Af Amer) > 60 Random Glucose 114 H Lactic Acid 1.2 Calcium 9.6 Total Bilirubin 0.5 AST 35 ALT 31 Alkaline Phosphatase 133 H D Total Protein 8.2 Albumin 4.8 Globulin 3.4 Albumin/Globulin Ratio 1.4 Lipase 64 Urine Color Urine Clarity Urine pH Ur Specific [place] Urine Protein Urine Glucose (UA) Urine Ketones Urine Blood Urine Nitrate Urine Bilirubin Urine Urobilinogen Ur Leukocyte Esterase Urine RBC (Auto) Urine Microscopic WBC Ur Squamous Epith Cells Blood Type Blood Type Confirm Antibody Screen BBK History Checked 06/25/18 06/25/18 06/25/18 00:40 00:40 01:53 WBC RBC Hgb Hct MCV MCH MCHC RDW Plt Count MPV Neut % (Auto) Lymph % (Auto) [place] % (Auto) Eos % (Auto) Baso % (Auto) Neut # (Auto) Lymph # (Auto) [place] # (Auto) Eos # (Auto) Baso # (Auto) PT 11.6 INR 1.0 APTT 25.9 Sodium Potassium Chloride Carbon Dioxide Anion Gap BUN Creatinine Est GFR ( Amer) Est GFR (Non-Af Amer) Random Glucose Lactic Acid Calcium Total Bilirubin AST ALT Alkaline Phosphatase Total Protein Albumin Globulin Albumin/Globulin Ratio Lipase Urine Color Yellow Urine Clarity Slighty-cloudy Urine pH 9.0 Ur Specific [place] 1.015 Urine Protein Negative Urine Glucose (UA) Neg Urine Ketones Trace Urine Blood Negative Urine Nitrate Negative Urine Bilirubin Negative Urine Urobilinogen 0.2-1.0 Ur Leukocyte Esterase Neg Urine RBC (Auto) 1 Urine Microscopic WBC 1 Ur Squamous Epith Cells < 1 Blood Type O POSITIVE Blood Type Confirm Antibody Screen Negative BBK History Checked No verified bt 06/25/18 09:40 WBC RBC Hgb Hct MCV MCH MCHC RDW Plt Count MPV Neut % (Auto) Lymph % (Auto) [place] % (Auto) Eos % (Auto) Baso % (Auto) Neut # (Auto) Lymph # (Auto) [place] # (Auto) Eos # (Auto) Baso # (Auto) PT INR APTT Sodium Potassium Chloride Carbon Dioxide Anion Gap BUN Creatinine Est GFR ( Amer) Est GFR (Non-Af Amer) Random Glucose Lactic Acid Calcium Total Bilirubin AST ALT Alkaline Phosphatase Total Protein Albumin Globulin Albumin/Globulin Ratio Lipase Urine Color Urine Clarity Urine pH Ur Specific [place] Urine Protein Urine Glucose (UA) Urine Ketones Urine Blood Urine Nitrate Urine Bilirubin Urine Urobilinogen Ur Leukocyte Esterase Urine RBC (Auto) Urine Microscopic WBC Ur Squamous Epith Cells Blood Type Blood Type Confirm O POSITIVE Antibody Screen BBK History Checked Assessment & Plan (1) Asthma Status: Acute (2) Small bowel obstruction Status: Acute (3) Small bowel obstruction, partial Status: Acute (4) Small bowel obstruction, partial Status: Acute (5) Intermittent small bowel obstruction Status: Acute - Assessment and Plan (Free Text) Assessment: will check cultures SBO- likely due to adhesions hold off on IV antibiotics
--- NOTE | 2018-06-26 01:14 | CP.PCM.HP ---
History of Present Illness - History of Present Illness History of Present Illness: HPI: 68 year old female pt with a PMH of HTN and hyperlipidemia presented to the ED with abrupt onset abdominal pain, with associated vomiting and abdominal distention. The pt has taken Dexilant in the past for gastritis, and was recently on Macrodantin for a UTI. At this time, she is able to pass small bowel movements and has experienced no vomiting episodes since arrival to the ED. PMH: Asthma, CVA (unspecified), HTN, hyperlipidemia, gastritis, UTI. PSH: Cholecystectomy, hysterectomy. Allergies: NKDA. Subjective Review of Systems: Reviewed and no additional remarkable complaints except abdom inal pain. Objective Vital Signs Stable Appears: Anxious, Non-toxic, No Acute Distress. Head Exam: NORMAL INSPECTION, normocephalic. Eye Exam: Normal eye inspection, EOMI, PERRLA. Respiratory Exam: NORMAL BREATHING PATTERN, breath sounds clear bilaterally. Cardiovascular Exam: +S1, +S2. RRR. GI & Abdominal Exam: Soft, diffuse tenderness, distended. Bowel sounds normoactive. Neurological Exam: Alert, Awake, Oriented x3. Musculoskeletal Exam: 5/5 BUE strength, 5/5 BLE strength. Psychiatric exam: Normal mood. Calm and cooperative. Skin Exam: Normal Color, Warm, Dry. Assessment/Impression/Plan: 1.) Partial SBO -CT A/P and Abd obstructive series X-ray showed findings appearing to be distal SBO. Right small bowel fecalization noted on report. -General surgery consult appreciated input. -IVF hydration + ambulation. -Pt may need enema. -pain mgmt and anti-emetics. -Continue current treatment. Present on Admission - Present on Admission Any Indicators Present on Admission: No Past Patient History - Past Medical History & Family History Past Medical History?: Yes - Past Social History Alcohol: None Drugs: Denies - CARDIAC Hx Hypercholesterolemia: Yes Hx Hypertension: Yes - PULMONARY Hx Asthma: Yes - NEUROLOGICAL HX Cerebrovascular Accident: Yes - HEENT Hx HEENT Problems: No - RENAL Hx Chronic Kidney Disease: No - ENDOCRINE/METABOLIC Hx Endocrine Disorders: No - HEMATOLOGICAL/ONCOLOGICAL Hx Blood Disorders: No - INTEGUMENTARY Hx Dermatological Problems: No - MUSCULOSKELETAL/RHEUMATOLOGICAL Hx Musculoskeletal Disorders: No Hx Falls: No - GASTROINTESTINAL Hx Gastrointestinal Disorders: Yes Hx Gastritis: Yes - GENITOURINARY/GYNECOLOGICAL Hx Genitourinary Disorders: No - PSYCHIATRIC Hx Substance Use: No - SURGICAL HISTORY Hx Cholecystectomy: Yes - ANESTHESIA Hx Anesthesia: Yes Hx Anesthesia Reactions: No Meds Allergies/Adverse Reactions: Allergies Allergy/AdvReac Type Severity Reaction Status Date / Time No Known Allergies Allergy Verified 03/24/17 13:10 Results - Vital Signs Recent Vital Signs: Last Vital Signs Temp 98.2 F 06/26/18 00:39 Pulse 56 L 06/26/18 00:39 Resp 19 06/26/18 00:39 BP 133/71 06/26/18 00:39 Pulse Ox 97 06/26/18 00:39 - Labs Result Diagrams: 06/25/18 00:40 06/25/18 00:40 Labs: Laboratory Results - last 24 hr 06/25/18 06/25/18 06/25/18 00:40 00:40 00:40 Sodium 137 Potassium 4.3 Chloride 97 L Carbon Dioxide 31 H Anion Gap 13 BUN 12 Creatinine 0.6 L Est GFR ( Amer) > 60 Est GFR (Non-Af Amer) > 60 Random Glucose 114 H Lactic Acid 1.2 Calcium 9.6 Total Bilirubin 0.5 AST 35 ALT 31 Alkaline Phosphatase 133 H D Total Protein 8.2 Albumin 4.8 Globulin 3.4 Albumin/Globulin Ratio 1.4 Lipase 64 Urine Color Urine Clarity Urine pH Ur Specific [place] Urine Protein Urine Glucose (UA) Urine Ketones Urine Blood Urine Nitrate Urine Bilirubin Urine Urobilinogen Ur Leukocyte Esterase Urine RBC (Auto) Urine Microscopic WBC Ur Squamous Epith Cells Blood Type O POSITIVE Blood Type Confirm Antibody Screen Negative 06/25/18 06/25/18 01:53 09:40 Sodium Potassium Chloride Carbon Dioxide Anion Gap BUN Creatinine Est GFR ( Amer) Est GFR (Non-Af Amer) Random Glucose Lactic Acid Calcium Total Bilirubin AST ALT Alkaline Phosphatase Total Protein Albumin Globulin Albumin/Globulin Ratio Lipase Urine Color Yellow Urine Clarity Slighty-cloudy Urine pH 9.0 Ur Specific [place] 1.015 Urine Protein Negative Urine Glucose (UA) Neg Urine Ketones Trace Urine Blood Negative Urine Nitrate Negative Urine Bilirubin Negative Urine Urobilinogen 0.2-1.0 Ur Leukocyte Esterase Neg Urine RBC (Auto) 1 Urine Microscopic WBC 1 Ur Squamous Epith Cells < 1 Blood Type Blood Type Confirm O POSITIVE Antibody Screen Assessment & Plan (1) Small bowel obstruction, partial Status: Acute
[2018-06-26 08:15] LABS: HEMOGLOBIN 12.2 g/dL (12.0-16.0); MEAN CELL VOLUME 87.8 fl (81.0-99.0); MEAN CORPUSCULAR HEMOGLOBIN 28.6 pg (27.0-31.0); MEAN CORPUSCULAR HGB CONC 32.6 g/dL (33.0-37.0); RBC 4.28 Mil/uL (3.80-5.20); RED CELL DISTRIBUTION WIDTH 12.8 % (11.5-14.5); WHITE BLOOD COUNT 9.5 K/uL (4.8-10.8)
--- NOTE | 2018-06-26 08:21 | CP.PCM.PN ---
<[employer] - Last Filed: 06/26/18 08:19> Subjective - Date & Time of Evaluation Date of Evaluation: 06/26/18 Time of Evaluation: 08:19 - Subjective Subjective: Surgery Progress Note- Dr. Bower Patient seen and examined. Was able to pass flatus and had BM with Enema. Still having mild abd pain. Denies fevers, chills, chest pain, shortness of breath. Currently NPO on IVF Objective - Vital Signs/Intake and Output Vital Signs (last 24 hours): Temp Pulse Resp BP Pulse Ox 98.2 F 56 L 19 133/71 97 06/26/18 00:39 06/26/18 00:39 06/26/18 00:39 06/26/18 00:39 06/26/18 00:39 - Medications Medications: Current Medications Famotidine (Pepcid) 20 mg IV Q12 [facility] Last Admin: 06/25/18 20:52 Dose: 20 mg Lactated Ringer's (Lactated Ringer's) 1,000 mls @ 90 mls/hr IV .Q11H7M [facility] Last Admin: 06/25/18 20:59 Dose: 90 mls/hr Ketorolac Tromethamine (Toradol) 15 mg IVP Q6 PRN PRN Reason: Pain, moderate (4-7) Last Admin: 06/25/18 20:55 Dose: 15 mg Ondansetron HCl (Zofran Inj) 4 mg IVP Q4 PRN PRN Reason: Nausea/Vomiting Last Admin: 06/25/18 09:08 Dose: 4 mg - Labs Labs: 06/26/18 07:45 06/25/18 00:40 PT 11.6 Seconds (9.8-13.1) 06/25/18 00:40 INR 1.0 06/25/18 00:40 APTT 25.9 Seconds (25.6-37.1) 06/25/18 00:40 - Constitutional Appears: Non-toxic, No Acute Distress - Head Exam Head Exam: ATRAUMATIC - Eye Exam Eye Exam: EOMI. absent: Scleral icterus - ENT Exam ENT Exam: Mucous Membranes Moist - Respiratory Exam Respiratory Exam: NORMAL BREATHING PATTERN. absent: Accessory Muscle Use, Respiratory Distress - Cardiovascular Exam Cardiovascular Exam: REGULAR RHYTHM. absent: Bradycardia, Tachycardia - GI/Abdominal Exam GI & Abdominal Exam: Distended, Soft, Tenderness (diffuse abd tenderness). absent: Firm, Guarding, Rigid, Hernia Additional comments: Abdominal scars well healed - Extremities Exam Extremities Exam: absent: Calf Tenderness - Neurological Exam Neurological Exam: Alert, Awake, Oriented x3 - Psychiatric Exam Psychiatric exam: Normal Affect - Skin Skin Exam: Warm Assessment and Plan - Assessment and Plan (Free Text) Assessment: 68F w/ small bowel obstruction Plan: - NPO - IVF - analgesia PRN - if does not clinically improve, will plan for diagnostic laparoscopy - further recs per Dr. Bower Surgical Attending PGY2 <Fortunato Vallejo - Last Filed: 06/30/18 17:35> Objective - Vital Signs/Intake and Output Vital Signs (last 24 hours): Temp Pulse Resp BP Pulse Ox 97.2 F L 70 18 131/77 95 06/30/18 16:41 06/30/18 16:41 06/30/18 16:41 06/30/18 16:41 06/30/18 16:41 - Medications Medications: Current Medications Clotrimazole (Lotrimin 1% Cream) 1 applic TOP BID [facility] Last Admin: 06/30/18 16:22 Dose: 1 applic Enoxaparin Sodium (Lovenox) 30 mg SC DAILY [facility]; Protocol Last Admin: 06/30/18 10:01 Dose: 30 mg Famotidine (Pepcid) 20 mg IV Q12 [facility] Last Admin: 06/30/18 10:01 Dose: 20 mg Piperacillin Sod/Tazobactam (Sod 3.375 gm/ Sodium Chloride) 100 mls @ 100 mls/hr IVPB Q6 [facility]; Protocol Last Admin: 06/30/18 16:22 Dose: 100 mls/hr Ketorolac Tromethamine (Toradol) 30 mg IVP Q6 PRN PRN Reason: Pain, moderate (4-7) Ondansetron HCl (Zofran Inj) 4 mg IVP Q4 PRN PRN Reason: Nausea/Vomiting Last Admin: 06/28/18 12:38 Dose: 4 mg Phenol/Menthol (Phenaseptic 1.4% Throat [place]) 1 spry [place] Q2 PRN PRN Reason: Sore Throat Last Admin: 06/30/18 10:06 Dose: 1 spr - Labs Labs: 06/30/18 06:00 06/30/18 06:00 PT 11.6 Seconds (9.8-13.1) 06/25/18 00:40 INR 1.0 06/25/18 00:40 APTT 25.9 Seconds (25.6-37.1) 06/25/18 00:40 Assessment and Plan - Assessment and Plan (Free Text) Assessment: All medical record entries made by the resident were at my direction. I have re viewed the chart and agree that the record accurately reflects my personal performance of the history, physical exam, and medical decision making. Plan: All medical record entries made by the resident were at my direction. I have reviewed the chart and agree that the record accurately reflects my personal performance of the history, physical exam, and medical decision making.
[2018-06-26] MEDS ORDERED: Lactated Ringer's 1,000 ML IV SCH (08:23)
[2018-06-26 08:34] LABS: ALB/GLOB RATIO 1.4 (1.0-2.1); ALBUMIN 3.8 g/dL (3.5-5.0); ALT/SGPT 30 U/L (9-52); AST/SGOT 27 U/L (14-36); BLOOD UREA NITROGEN 10 mg/dl (7-17); CALCIUM 8.6 mg/dL (8.4-10.2); GFR NON-AFRICAN AMERICAN > 60
[2018-06-26] MEDS: Potassium Chloride 20 MEQ in Lactated Ringer's 1,000 ML IV SCH ×2 (13:53→23:37)
--- NOTE | 2018-06-26 18:44 | CP.PCM.PN ---
Subjective - Date & Time of Evaluation Date of Evaluation: 06/26/18 Time of Evaluation: 09:00 - Subjective Subjective: c/o abd pain and tenderness no fever wants to eat NPO except liquids Objective - Vital Signs/Intake and Output Vital Signs (last 24 hours): Temp Pulse Resp BP Pulse Ox 98.3 F 57 L 18 129/78 96 06/26/18 17:00 06/26/18 17:00 06/26/18 17:00 06/26/18 17:00 06/26/18 17:00 - Medications Medications: Current Medications Famotidine (Pepcid) 20 mg IV Q12 [facility] Last Admin: 06/26/18 10:43 Dose: 20 mg Potassium Chloride 20 meq/ (Lactated Ringer's) 1,010 mls @ 100 mls/hr IV .Q10H6M [facility] Last Admin: 06/26/18 13:53 Dose: 100 mls/hr Ketorolac Tromethamine (Toradol) 15 mg IVP Q6 PRN PRN Reason: Pain, moderate (4-7) Last Admin: 06/25/18 20:55 Dose: 15 mg Ondansetron HCl (Zofran Inj) 4 mg IVP Q4 PRN PRN Reason: Nausea/Vomiting Last Admin: 06/25/18 09:08 Dose: 4 mg - Labs Labs: 06/26/18 07:45 06/26/18 07:45 PT 11.6 Seconds (9.8-13.1) 06/25/18 00:40 INR 1.0 06/25/18 00:40 APTT 25.9 Seconds (25.6-37.1) 06/25/18 00:40 - Constitutional Appears: Non-toxic, No Acute Distress, Chronically Ill - Head Exam Head Exam: ATRAUMATIC, NORMAL INSPECTION, NORMOCEPHALIC - Eye Exam Eye Exam: EOMI, Normal appearance, PERRL Pupil Exam: NORMAL ACCOMODATION, PERRL - ENT Exam ENT Exam: Mucous Membranes Moist, Normal Exam - Neck Exam Neck Exam: Full ROM, Normal Inspection. absent: Lymphadenopathy - Respiratory Exam Respiratory Exam: Clear to Ausculation Bilateral, NORMAL BREATHING PATTERN - Cardiovascular Exam Cardiovascular Exam: REGULAR RHYTHM, +S1, +S2. absent: Murmur - GI/Abdominal Exam GI & Abdominal Exam: Distended, Guarding, Soft. absent: Tenderness - Rectal Exam Rectal Exam: Deferred - Extremities Exam Extremities Exam: Full ROM, Normal Capillary Refill, Normal Inspection. absent: Joint Swelling, Pedal Edema - Back Exam Back Exam: NORMAL INSPECTION - Neurological Exam Neurological Exam: Alert, Awake, CN II-XII Intact, Normal Gait, Oriented x3 - Psychiatric Exam Psychiatric exam: Normal Affect, Normal Mood - Skin Skin Exam: Dry, Intact, Normal Color, Warm Assessment and Plan (1) Asthma Status: Acute (2) Small bowel obstruction Status: Acute (3) Small bowel obstruction, partial Status: Acute (4) Small bowel obstruction, partial Status: Acute (5) Intermittent small bowel obstruction Status: Acute - Assessment and Plan (Free Text) Assessment: will likely need exploratory lap lysis of adhesions discussed with surgery
--- NOTE | 2018-06-26 18:52 | CP.PCM.PN ---
Subjective - Date & Time of Evaluation Date of Evaluation: 06/26/18 Time of Evaluation: 10:00 - Subjective Subjective: patient seen and examined at bedside. Interim events noted abdominal pain persist, though improved denies cp/sob/fever/chills. available diagnostic data reviewed Review of Systems All systems: reviewed and no additional remarkable complaints except mentioned above Objective Vital Signs Stable - Constitutional Appears: Non-toxic, No Acute Distress Head Exam: NORMAL INSPECTION Eye Exam: Normal appearance Respiratory Exam: NORMAL BREATHING PATTERN Cardiovascular Exam: +S1, +S2 GI & Abdominal Exam: distended, diffuse tenderness mild Neurological Exam: Alert, Awake Psychiatric exam: Normal Affect, Normal Mood Skin Exam: Normal Color, Warm Assessment and Plan monitor vitals monitor labs Cont meds Cont tx consultants appreciated input currently npo possible need for diagnostic lap rest of plan as ordered Objective - Vital Signs/Intake and Output Vital Signs (last 24 hours): Temp Pulse Resp BP Pulse Ox 98.3 F 57 L 18 129/78 96 06/26/18 17:00 06/26/18 17:00 06/26/18 17:00 06/26/18 17:00 06/26/18 17:00 - Medications Medications: Current Medications Famotidine (Pepcid) 20 mg IV Q12 [facility] Last Admin: 06/26/18 10:43 Dose: 20 mg Potassium Chloride 20 meq/ (Lactated Ringer's) 1,010 mls @ 100 mls/hr IV .Q10H6M [facility] Last Admin: 06/26/18 13:53 Dose: 100 mls/hr Ketorolac Tromethamine (Toradol) 15 mg IVP Q6 PRN PRN Reason: Pain, moderate (4-7) Last Admin: 06/25/18 20:55 Dose: 15 mg Ondansetron HCl (Zofran Inj) 4 mg IVP Q4 PRN PRN Reason: Nausea/Vomiting Last Admin: 06/25/18 09:08 Dose: 4 mg - Labs Labs: 06/26/18 07:45 06/26/18 07:45 PT 11.6 Seconds (9.8-13.1) 06/25/18 00:40 INR 1.0 06/25/18 00:40 APTT 25.9 Seconds (25.6-37.1) 06/25/18 00:40 Assessment and Plan (1) Small bowel obstruction Status: Acute
[2018-06-27] MEDS: Potassium Chloride 20 MEQ in Lactated Ringer's 1,000 ML IV SCH (06:48)
[2018-06-27] MEDS ORDERED: Phenylephrine 10 mg/ml Inj ONE (09:31)
[2018-06-27] MEDS ORDERED: Bupivacaine 0.5% Inj(30mL) ONE (09:46)
[2018-06-27] MEDS ORDERED: Sodium Chloride 0.9% 1,000 ML IV ONE ×3 (10:30→12:00)
[2018-06-27] MEDS ORDERED: Propofol 10 mg/ml Inj (20 ML) ONE (10:30)
[2018-06-27] MEDS ORDERED: Succinylcholine Chloride 20 mg/ml Syr (5 ml) IV ONE (10:30)
[2018-06-27] MEDS ORDERED: Midazolam 2 MG/2 ML VIAL ONE (10:30)
[2018-06-27] MEDS ORDERED: Rocuronium 10 mg/ml (5 ml) ONE ×2 (10:30→12:07)
[2018-06-27] MEDS ORDERED: Lidocaine 4% (Laryng-O-Jet) Kit MM ONE (10:30)
[2018-06-27] MEDS ORDERED: Bupivacaine 0.5% 50 ML IJ ONE ×2 (10:50)
--- NOTE | 2018-06-27 11:56 | CP.PCM.PN ---
Subjective - Date & Time of Evaluation Date of Evaluation: 06/27/18 Time of Evaluation: 09:00 - Subjective Subjective: remains afeb for OR - expl lap Objective - Vital Signs/Intake and Output Vital Signs (last 24 hours): Temp Pulse Resp BP Pulse Ox 97.8 F 63 19 171/75 H 95 06/27/18 08:06 06/27/18 08:06 06/27/18 08:06 06/27/18 08:06 06/27/18 08:06 - Medications Medications: Current Medications Famotidine (Pepcid) 20 mg IV Q12 [facility] Last Admin: 06/26/18 21:28 Dose: 20 mg Potassium Chloride 20 meq/ (Lactated Ringer's) 1,010 mls @ 100 mls/hr IV .Q10H6M [facility] Last Admin: 06/27/18 06:48 Dose: Not Given Ketorolac Tromethamine (Toradol) 15 mg IVP Q6 PRN PRN Reason: Pain, moderate (4-7) Last Admin: 06/27/18 05:20 Dose: 15 mg Ondansetron HCl (Zofran Inj) 4 mg IVP Q4 PRN PRN Reason: Nausea/Vomiting Last Admin: 06/27/18 05:32 Dose: 4 mg Zolpidem Tartrate (Ambien) 5 mg PO HS PRN PRN Reason: Insomnia Last Admin: 06/26/18 22:24 Dose: 5 mg - Labs Labs: 06/26/18 07:45 06/26/18 07:45 PT 11.6 Seconds (9.8-13.1) 06/25/18 00:40 INR 1.0 06/25/18 00:40 APTT 25.9 Seconds (25.6-37.1) 06/25/18 00:40 - Constitutional Appears: Non-toxic, Chronically Ill - Head Exam Head Exam: NORMOCEPHALIC - Eye Exam Eye Exam: absent: Scleral icterus - ENT Exam ENT Exam: Mucous Membranes Dry - Neck Exam Neck Exam: absent: Lymphadenopathy - Respiratory Exam Respiratory Exam: Decreased Breath Sounds - Cardiovascular Exam Cardiovascular Exam: REGULAR RHYTHM - GI/Abdominal Exam GI & Abdominal Exam: Distended, Tenderness, Hyperactive Bowel Sounds. absent: Rebound - Rectal Exam Rectal Exam: Deferred - Exam Exam: NORMAL INSPECTION - Extremities Exam Extremities Exam: absent: Pedal Edema - Back Exam Back Exam: absent: CVA tenderness (L), CVA tenderness (R) - Neurological Exam Neurological Exam: Alert, Awake, CN II-XII Intact, Oriented x3 - Psychiatric Exam Psychiatric exam: Depressed - Skin Skin Exam: Dry Assessment and Plan (1) Asthma Status: Acute (2) Small bowel obstruction Status: Acute (3) Small bowel obstruction, partial Status: Acute (4) Small bowel obstruction, partial Status: Acute (5) Intermittent small bowel obstruction Status: Acute - Assessment and Plan (Free Text) Assessment: for OR expl lap
--- NOTE | 2018-06-27 13:26 | CARD ---
APPROVED REPORT Date of service: 06/27/2018 EKG Measurement Heart [id number] <Conclusion> Normal sinus rhythm Left axis deviation Abnormal ECG
[2018-06-27] MEDS ORDERED: Neostigmine 1:1000 (1 mg/ml) Inj ONE (13:59)
[2018-06-27] MEDS ORDERED: metroNIDAZOLE 500mg/100ml NS IVPB ONE (14:00)
[2018-06-27] MEDS ORDERED: metroNIDAZOLE 500mg/100ml NS 100 ML IVPB ONE (14:00)
[2018-06-27] MEDS ORDERED: Sevoflurane - Inhalation Anesthetic Liq (250 ml) ONE (14:18)
[2018-06-27] MEDS ORDERED: Bupivacaine 0.25% 300 ML in Sodium Chloride 0.9% 300 ML IS ONE (14:51)
--- NOTE | 2018-06-27 14:58 | RAD ---
Date of service: 06/27/2018 HISTORY: admission, possible OR COMPARISON: Portable chest 03/23/2017. TECHNIQUE: 1 view obtained. FINDINGS: LUNGS: No active pulmonary disease. PLEURA: No significant pleural effusion identified, no pneumothorax apparent. CARDIOVASCULAR: No aortic atherosclerotic calcification present. Stable cardiac size likely normal. No pulmonary vascular congestion. OSSEOUS STRUCTURES: No significant abnormalities. VISUALIZED UPPER ABDOMEN: Surgical clips right upper quadrant abdomen reiterated. OTHER FINDINGS: None. IMPRESSION: No interval acute cardiopulmonary disease appreciated.
[2018-06-27] MEDS: Sodium Chloride 0.9% 1,000 ML IV SCH (15:00)
--- NOTE | 2018-06-27 15:22 | PCM.SURG1 ---
Surgeon's Initial Post Op Note - Surgeon's Notes Surgeon: Dr. Bower Bundle Shaker: Dr. Zapien PGY3, Dr. Bowen PGY3 Type of Anesthesia: General Endo Pre-Operative Diagnosis: SBO Operative Findings: see operative report Post-Operative Diagnosis: same Operation Performed: diagnostic laparoscopy. extensive laparoscopic enterolysis. exploratory laparotomy. small bowel resection with primary anastomosis Specimen/Specimens Removed: small bowel Estimated Blood Loss: EBL {In ML}: 500 Blood Products Given: N/A Drains Used: Rishi Post-Op Condition: Good Date of Surgery/Procedure: 06/27/18 Time of Surgery/Procedure: 10:30
[2018-06-27] MEDS ORDERED: HYDROmorphone 1 mg/ml ISec IVP PRN (15:33)
[2018-06-27 16:14] LABS: MEAN CORPUSCULAR HEMOGLOBIN 28.9 pg (27.0-31.0); MEAN CORPUSCULAR HGB CONC 32.4 g/dL (33.0-37.0); RBC 4.49 Mil/uL (3.80-5.20); RED CELL DISTRIBUTION WIDTH 13.2 % (11.5-14.5); WHITE BLOOD COUNT 5.3 K/uL (4.8-10.8)
[2018-06-27 16:25] LABS: BLOOD UREA NITROGEN 9 mg/dl (7-17); CALCIUM 7.1 mg/dL (8.4-10.2); GFR NON-AFRICAN AMERICAN > 60
[2018-06-27] MEDS: Piperacillin/Tazobact 3.375 GM in Sodium Chloride 0.9% 100 ML IVPB SCH ×2 (17:43→21:49)
--- NOTE | 2018-06-27 17:43 | RAD ---
Date of service: 06/27/2018 PROCEDURE: CHEST RADIOGRAPH, 1 VIEW HISTORY: NGT insertion COMPARISON: 06/27/2018 FINDINGS: LUNGS: Clear. PLEURA: No pneumothorax or pleural fluid seen. CARDIOVASCULAR: No aortic atherosclerotic calcification present. Normal heart size. NG tube extends to left upper quadrant of abdomen. OSSEOUS STRUCTURES: No significant abnormalities. VISUALIZED UPPER ABDOMEN: Normal. OTHER FINDINGS: None. IMPRESSION: NG tube appropriately positioned.
[2018-06-27] MEDS ORDERED: Sodium Chloride 0.9% 1,000 ML IV SCH (19:00)
[2018-06-27] MEDS: Potassium CL 10mEq/100ml 100 ML IVPB SCH (21:38)
[2018-06-27] MEDS: HYDROmorphone 0.5 mg/0.5 ml ISec IVP PRN (22:10)
--- NOTE | 2018-06-27 23:26 | CP.PCM.PN ---
Subjective - Date & Time of Evaluation Date of Evaluation: 06/27/18 Time of Evaluation: 10:30 - Subjective Subjective: Pt away in OR at this time. Chart, labs, and meds reviewed, plan of care discussed with staff. Assessment/Impression/Plan: 1.) Partial SBO -Per staff, pt was not having full bowel movements despite enemas. Also has persistent epigastric pain. -Pt for diagnostic laparoscopy today with surgical team. -General surgery consult appreciated input. -pain mgmt and anti-emetics. -Post-op management. -Continue current treatment. Objective - Vital Signs/Intake and Output Vital Signs (last 24 hours): Temp Pulse Resp BP Pulse Ox 98.3 F 102 H 18 99/68 L 100 06/27/18 21:30 06/27/18 21:30 06/27/18 21:30 06/27/18 21:30 06/27/18 21:30 Intake and Output: 06/27/18 06/28/18 18:59 06:59 Intake Total 3500 Output Total 630 Balance 2870 - Medications Medications: Current Medications Famotidine (Pepcid) 20 mg IV Q12 [facility] Last Admin: 06/27/18 21:44 Dose: 20 mg Hydromorphone HCl (Dilaudid) 0.5 mg IVP Q3 PRN PRN Reason: Pain, moderate (4-7) Last Admin: 06/27/18 22:10 Dose: 0.5 mg Potassium Chloride 20 meq/ (Lactated Ringer's) 1,010 mls @ 100 mls/hr IV .Q10H6M [facility] Last Admin: 06/27/18 06:48 Dose: Not Given Bupivacaine HCl 300 ml/ Sodium (Chloride) 600 mls @ 4 mls/hr IS .Q24H ONE Stop: 06/28/18 14:50 Last Admin: 06/27/18 18:29 Dose: 0 mls Sodium Chloride (Sodium Chloride 0.9%) 1,000 mls @ 100 mls/hr IV .Q10H [facility] Last Admin: 06/27/18 15:00 Dose: 900 mls Piperacillin Sod/Tazobactam (Sod 3.375 gm/ Sodium Chloride) 100 mls @ 100 mls/hr IVPB Q6 [facility]; Protocol Last Admin: 06/27/18 21:49 Dose: 100 mls/hr Sodium Chloride (Sodium Chloride 0.9%) 1,000 mls @ 0 mls/hr IV .Q0M [facility] Stop: 06/28/18 18:57 Ondansetron HCl (Zofran Inj) 4 mg IVP Q4 PRN PRN Reason: Nausea/Vomiting Last Admin: 06/27/18 21:44 Dose: 4 mg Zolpidem Tartrate (Ambien) 5 mg PO HS PRN PRN Reason: Insomnia Last Admin: 06/26/18 22:24 Dose: 5 mg - Labs Labs: 06/27/18 16:10 06/27/18 16:10 PT 11.6 Seconds (9.8-13.1) 06/25/18 00:40 INR 1.0 06/25/18 00:40 APTT 25.9 Seconds (25.6-37.1) 06/25/18 00:40 Assessment and Plan (1) Small bowel obstruction, partial Status: Acute
[2018-06-28] MEDS: Potassium CL 10mEq/100ml 100 ML IVPB SCH (00:22)
[2018-06-28] MEDS: Sodium Chloride 0.9% 1,000 ML IV SCH ×5 (01:04→18:26)
--- NOTE | 2018-06-28 03:09 | OP ---
PROCEDURE DATE: 06/27/2018 SURGEON: Fortunato Bower MD ASSISTANTS: Joshua Zapien DO, PGY-3; Javi Bowen DO, PGY-3; and Trip Arshad DO, PGY-2 ANESTHESIA: General. ANESTHESIOLOGIST: Oni Ware MD PREOPERATIVE DIAGNOSIS: Small bowel obstruction. POSTOPERATIVE DIAGNOSIS: Small bowel obstruction. PROCEDURES: 1. Diagnostic laparoscopy. 2. Laparoscopic extensive enterolysis. 3. Exploratory laparotomy. 4. Small bowel resection with primary anastomosis. 5. Mcfadden catheter insertion. ESTIMATED BLOOD LOSS: 500 mL. SPECIMEN: Small bowel. INDICATION FOR SURGERY: This is a 68-year-old female who presented to [facility] with abdominal pain, nausea, and vomiting. Past medical history was significant for open abdominal surgeries including cholecystectomy and total abdominal hysterectomy. Initial attempt was to treat conservatively; however, the patient failed conservative management. The patient and family members then agreed for surgical intervention. The patient agreed to all consents. Risks and benefits of the surgery were explained including bleeding, infection, and possible colostomy. The patient was then taken to the operating room. DESCRIPTION OF PROCEDURE: The patient was brought into the operating room and placed in supine position. Anesthesia was then induced. General endotracheal tube was placed and compromised with end-tidal CO2. The patient was hooked up to the EKG monitors. A Mcfadden catheter was placed at this time. Abdomen was prepped and draped in the usual sterile fashion. A time-out was taken verifying the correct patient, procedure, and laterality. The open Vitale technique supraumbilical was used to enter into the abdomen. The fascia was incised with a #15 blade. Local anesthetic was used. Lidocaine, a total of 6 mL, was used. Layers were dissected down using Lucero clamp and retractors. Kochers were used to elevate the fascia. An incision was made with a #15 blade to enter into the abdomen. Confirmation upon entry was confirmed using a finger sweep method. A 5-mm trocar was then inserted using a 5-mm 30-degree scope. Entire abdomen was inspected. There was noted to be extensive dilated loops of bowel and decompressed bowel in the right lower quadrant. Multiple adhesions in the small bowel were adhesed to the anterior abdominal wall. Subsequently, three 5-mm ports were made, one subxiphoid, one left lateral and one right upper quadrant. The patient was then placed in reverse Trendelenburg position. Dilated loop of bowel in the pelvis was noted. A combination of sharp dissection using Endo John and bowel graspers were used for extensive enterolysis. Small bowel was taken down from the anterior abdominal wall using sharp scissors. Appropriate hemostasis was achieved using electrocautery. Upon further examination moving our attention to the right lower quadrant, small bowels were run, and multiple bowel loops were noted to be in the right lower quadrant. Continuation of enterolysis using Endo John were used to open up the loops of bowel. Upon further tracing, the decompressed small bowel was traced towards the right upper quadrant. At this time, multiple lesions of small bowel were seen on the anterior abdominal wall. Another 5-mm port was then used to help with the assistance and retraction that was placed in the right middle abdomen. At this time, the small bowel was then used with atraumatic graspers to provide counter fraction and sharp dissection was used. The transition point was then found in the right upper quadrant. There were multiple adhesive bands and the bowel looped on itself. Once again continuing with Endo John, bowel was able to open up. After freeing majority of the small bowel, the transition point was noted and bowel was able to be done peristalsis into the decompressed region; however upon further inspection, an enterotomy was then discovered. At this time, conversion to an open case was then used. The abdomen was then allowed to decompress safely. All ports were removed under direct inspection and no bleeding was noted. A #10 blade was then used going suprapubic to 4 cm above the umbilicus was used. Electrocautery was then used to get down to the fascial layer. The fascia was then incised with sharp Metzenbaum, and then the remainder of the fascia was opened using Bovie electrocautery. Upon inspection, the bowel was then eviscerated and subsequently run, continuing with open enterolysis. The lysis of adhesions was used with Metzenbaum and blunt dissection. It was then noted that the enterotomy was then found. Then, three Lembert sutures were then used to close; however upon further running the bowel, two more enterotomies were then discovered. At this time, decision was made to do a small bowel resection of the diseased bowel due to realizing the inability to safely close all three enterotomies. A 45-mm Ethicon electronic stapler was then used to resect the small bowel. Blue loads were used on the bowel proximal and distally. White loads were then used along the mesentery. Specimens were then passed off the table. At this time, a 3-0 silk was then used to approximate the small bowel. Conversion to a dirty table was then used for all dirty equipment. Bovie electrocautery was then used to open the proximal and distal portions of the small bowel. The electronic staple load was then used. Upon insertion, blue load was used and was then stapled to allow opening of the balloon. Allis clamps were then used, and then blue load was stapled across. Palpation of an open wound was able to be appreciated. The defect in the mesentery was then closed with a 3-0 silk in an interrupted fashion. The staple line was then protected using an eversion method in a Lembert fashion using 3-0 silk. After finishing the anastomosis and palpation, small bowel was dropped back into the abdomen. At this time, further inspection of the bowel was then done. The entirety of the small bowel was then inspected. No further enterotomies were noted. Upon running the small bowel which was in the right lower quadrant, there was some pulsatile bleeding noted from the mesentery. At this time, two clamps were then used and tied off to achieve appropriate hemostasis proximally and distally in the arcade vessels of the mesentery. At this time, the small bowel was then dropped back into the abdomen with special note to return back to the site of the ligation of the vessels. Rest of the entirety of the bowel was run. All bowel was healthy and appropriate hemostasis was achieved. Attention was then turned back to that portion of the small bowel where vessels were ligated. At this time, the tissue was pink, viable, and peristalsis was noted. The anastomosis site was then checked again for patency, and the anastomosis was noted to be tension free with good color. The entirety of the patient's bowel contents were then placed back into the abdomen safely. A #15 blade was then used to place in the abdomen in the right pericolic gutter and close to the anastomosis. The oblique was then pulled out of the previous laparoscopic incision on the right lateral side. The suture was then sutured into place with a 3-0 nylon and hooked up to suction. Attention was then taken back into the abdomen and then was extensively irrigated with over 3 L of warm normal saline. There was no bleeding noted at this time. We then converted to a closing clean table. All dirty tools were passed off and at this time dirty to close the fascia. The fascia was closed using looped 0 PDS running superiorly and inferiorly. Fascia was appropriately grasped and then two sutures were then in the middle. Four finger sheaths were then performed inside of the abdomen to ensure no small bowel was caught at this time. The looped PDS was then tied down with . The skin with soft tissue was then extensively irrigated again, and gloves were changed at this time to close the remainder portion of the skin. Skin was closed with john. The remainder of the laparoscopic port sites were closed with john. An On-Q tunnel catheter was then placed and flushed appropriately with bupivacaine. This was then secured in place with Steri-Strips and Dermabond. Sterile dressing was then applied and 4x4s and bulk dressing was then applied appropriately. The patient was then extubated and taken to the postanesthesia care unit in stable condition. All counts were correct at the end of the case. Dr. Bower was present and participated in all aspects of this case. Joshua Zapien DO Fortunato Meyer MD
[2018-06-28] MEDS ORDERED: Sodium Chloride 0.9% 1,000 ML IV ONE (03:15)
[2018-06-28] MEDS: Piperacillin/Tazobact 3.375 GM in Sodium Chloride 0.9% 100 ML IVPB SCH ×4 (03:24→21:24)
[2018-06-28] MEDS: HYDROmorphone 0.5 mg/0.5 ml ISec IVP PRN (05:32)
[2018-06-28 06:41] LABS: BASO % 0.1 % (0.0-2.0); HEMOGLOBIN 11.2 g/dL (12.0-16.0); LYMPH # 0.4 K/uL (1.0-4.3); LYMPH % 3.5 % (20.0-40.0); MEAN CELL VOLUME 90.1 fl (81.0-99.0); MEAN CORPUSCULAR HEMOGLOBIN 28.7 pg (27.0-31.0); MEAN CORPUSCULAR HGB CONC 31.8 g/dL (33.0-37.0); MEAN PLATELET VOLUME 9.8 fl (7.2-11.7); MONO % 7.6 % (0.0-10.0); NEUT # 11.3 K/uL (1.8-7.0); NEUT % 88.8 % (50.0-75.0); PLATELET COUNT 172 K/uL (130-400); RBC 3.92 Mil/uL (3.80-5.20); RED CELL DISTRIBUTION WIDTH 13.4 % (11.5-14.5); WHITE BLOOD COUNT 12.7 K/uL (4.8-10.8)
[2018-06-28 06:52] LABS: ALB/GLOB RATIO 1.2 (1.0-2.1); ALBUMIN 2.7 g/dL (3.5-5.0); CALCIUM 6.9 mg/dL (8.4-10.2)
[2018-06-28] MEDS ORDERED: Sodium Chloride 0.9% 1,000 ML IV SCH ×2 (07:00→17:30)
[2018-06-28] MEDS ORDERED: Calcium Gluconate 4.65 mEq/10 ml Inj IV ONE (08:22)
--- NOTE | 2018-06-28 08:39 | CP.PCM.PN ---
<Joshua Zapien - Last Filed: 06/28/18 08:39> Subjective - Date & Time of Evaluation Date of Evaluation: 06/28/18 Time of Evaluation: 06:45 - Subjective Subjective: Patient seen and examined. Received two 1L boluses over night do to tachycardia and low urine output. Responded appropriately. ROCHELLE ddrain 75cc/12 hrs of sanguinous output. UOP 625cc/ 12 hours. NGT output 100cc bilious output over 12 hours. Objective - Vital Signs/Intake and Output Vital Signs (last 24 hours): Temp Pulse Resp BP Pulse Ox 98.6 F 109 H 19 98/66 L 96 06/28/18 08:17 06/28/18 08:17 06/28/18 08:17 06/28/18 08:17 06/28/18 08:17 Intake and Output: 06/28/18 06/28/18 06:59 18:59 Intake Total 2000 Output Total 270 Balance 1730 - Medications Medications: Current Medications Calcium Gluconate (Calcium Gluconate) 4.6 meq IV ONCE ONE Stop: 06/28/18 08:23 Enoxaparin Sodium (Lovenox) 40 mg SC DAILY [facility]; Protocol Famotidine (Pepcid) 20 mg IV Q12 [facility] Last Admin: 06/27/18 21:44 Dose: 20 mg Hydromorphone HCl (Dilaudid) 0.5 mg IVP Q3 PRN PRN Reason: Pain, moderate (4-7) Last Admin: 06/28/18 05:32 Dose: 0.5 mg Bupivacaine HCl 300 ml/ Sodium (Chloride) 600 mls @ 4 mls/hr IS .Q24H ONE Stop: 06/28/18 14:50 Last Admin: 06/27/18 18:29 Dose: 0 mls Piperacillin Sod/Tazobactam (Sod 3.375 gm/ Sodium Chloride) 100 mls @ 100 mls/hr IVPB Q6 [facility]; Protocol Last Admin: 06/28/18 03:24 Dose: 100 mls/hr Sodium Chloride (Sodium Chloride 0.9%) 1,000 mls @ 0 mls/hr IV .Q0M [facility] Stop: 06/28/18 18:57 Sodium Chloride (Sodium Chloride 0.9%) 1,000 mls @ 999 mls/hr IV .Q1H1M [facility] Stop: 06/29/18 07:59 Sodium Chloride (Sodium Chloride 0.9%) 1,000 mls @ 125 mls/hr IV .Q8H [facility] Stop: 06/29/18 08:17 Ondansetron HCl (Zofran Inj) 4 mg IVP Q4 PRN PRN Reason: Nausea/Vomiting Last Admin: 06/28/18 05:32 Dose: 4 mg Zolpidem Tartrate (Ambien) 5 mg PO HS PRN PRN Reason: Insomnia Last Admin: 06/26/18 22:24 Dose: 5 mg - Labs Labs: 06/28/18 05:40 06/28/18 05:40 PT 11.6 Seconds (9.8-13.1) 06/25/18 00:40 INR 1.0 06/25/18 00:40 APTT 25.9 Seconds (25.6-37.1) 06/25/18 00:40 - Constitutional Appears: No Acute Distress - Head Exam Head Exam: NORMOCEPHALIC - Eye Exam Eye Exam: Normal appearance - ENT Exam ENT Exam: Mucous Membranes Moist - Respiratory Exam Respiratory Exam: NORMAL BREATHING PATTERN - Cardiovascular Exam Cardiovascular Exam: +S1, +S2 - GI/Abdominal Exam GI & Abdominal Exam: Soft, Tenderness. absent: Distended, Firm, Guarding, Rigid - Neurological Exam Neurological Exam: Alert, Awake, Oriented x3 - Psychiatric Exam Psychiatric exam: Normal Mood - Skin Skin Exam: Dry, Intact, Warm Assessment and Plan - Assessment and Plan (Free Text) Assessment: 68F with SBO s/p diagnostic laparoscopy, extensive laparoscopic enterolysis, exploratory laparotomy with small bowel resection and primary anastomosis Plan: NPO IVF ABx Anti-emetics/Analgesics DVT ppx OOB to chair Incentive spirometer Replete electrolytes as necessary Strict I&O's D/w Dr. Aguilar PGY3 <Fortunato Vallejo - Last Filed: 06/30/18 17:27> Objective - Vital Signs/Intake and Output Vital Signs (last 24 hours): Temp Pulse Resp BP Pulse Ox 97.2 F L 70 18 131/77 95 06/30/18 16:41 06/30/18 16:41 06/30/18 16:41 06/30/18 16:41 06/30/18 16:41 - Medications Medications: Current Medications Clotrimazole (Lotrimin 1% Cream) 1 applic TOP BID [facility] Last Admin: 06/30/18 16:22 Dose: 1 applic Enoxaparin Sodium (Lovenox) 30 mg SC DAILY [facility]; Protocol Last Admin: 06/30/18 10:01 Dose: 30 mg Famotidine (Pepcid) 20 mg IV Q12 [facility] Last Admin: 06/30/18 10:01 Dose: 20 mg Piperacillin Sod/Tazobactam (Sod 3.375 gm/ Sodium Chloride) 100 mls @ 100 mls/hr IVPB Q6 [facility]; Protocol Last Admin: 06/30/18 16:22 Dose: 100 mls/hr Ketorolac Tromethamine (Toradol) 30 mg IVP Q6 PRN PRN Reason: Pain, moderate (4-7) Ondansetron HCl (Zofran Inj) 4 mg IVP Q4 PRN PRN Reason: Nausea/Vomiting Last Admin: 06/28/18 12:38 Dose: 4 mg Phenol/Menthol (Phenaseptic 1.4% Throat [place]) 1 spry MT Q2 PRN PRN Reason: Sore Throat Last Admin: 06/30/18 10:06 Dose: 1 spr - Labs Labs: 06/30/18 06:00 06/30/18 06:00 PT 11.6 Seconds (9.8-13.1) 06/25/18 00:40 INR 1.0 06/25/18 00:40 APTT 25.9 Seconds (25.6-37.1) 06/25/18 00:40 Assessment and Plan - Assessment and Plan (Free Text) Plan: All medical record entries made by the resident were at my direction. I have reviewed the chart and agree that the record accurately reflects my personal performance of the history, physical exam, and medical decision making.
[2018-06-28] MEDS ORDERED: Calcium Gluconate 4.6 MEQ in Sodium Chloride 0.9% 100 ML IV ONE (09:30)
[2018-06-28 11:15] LABS: BANDS 20 % (0-2); LYMPHOCYTE 1 % (20-50); METAMYELOCYTE 2 % (0-0); MONOCYTE 5 % (0-10); MYELOCYTE 1 % (0-0); NEUTROPHIL 71 % (42-75); PLATELET ESTIMATE NORMAL (NORMAL); TOTAL CELLS COUNTED 100
[2018-06-28 11:16] LABS: HYPOCHROMIC SLIGHT; TOXIC GRANULATION PRESENT
[2018-06-28] MEDS: Enoxaparin 30 mg Syringe SC SCH (12:39)
[2018-06-29] MEDS: Piperacillin/Tazobact 3.375 GM in Sodium Chloride 0.9% 100 ML IVPB SCH ×4 (04:14→22:00)
[2018-06-29] MEDS: Sodium Chloride 0.9% 1,000 ML IV SCH (04:16)
[2018-06-29 07:24] LABS: BASO % 0.1 % (0.0-2.0); HEMOGLOBIN 9.1 g/dL (12.0-16.0); LYMPH # 0.8 K/uL (1.0-4.3); LYMPH % 5.7 % (20.0-40.0); MEAN CELL VOLUME 90.4 fl (81.0-99.0); MEAN CORPUSCULAR HEMOGLOBIN 28.5 pg (27.0-31.0); MEAN CORPUSCULAR HGB CONC 31.5 g/dL (33.0-37.0); MEAN PLATELET VOLUME 10.1 fl (7.2-11.7); MONO # 0.7 K/uL (0.0-0.8); MONO % 5.5 % (0.0-10.0); NEUT # 11.7 K/uL (1.8-7.0); NEUT % 88.7 % (50.0-75.0); RBC 3.21 Mil/uL (3.80-5.20); RED CELL DISTRIBUTION WIDTH 13.8 % (11.5-14.5); WHITE BLOOD COUNT 13.2 K/uL (4.8-10.8)
[2018-06-29 07:53] LABS: ALB/GLOB RATIO 1.1 (1.0-2.1); ALBUMIN 2.6 g/dL (3.5-5.0); ALT/SGPT 69 U/L (9-52); AST/SGOT 57 U/L (14-36); BLOOD UREA NITROGEN 15 mg/dl (7-17); CALCIUM 7.1 mg/dL (8.4-10.2); GFR NON-AFRICAN AMERICAN > 60
--- NOTE | 2018-06-29 08:42 | CP.PCM.PN ---
<Ghada Kenr - Last Filed: 06/29/18 11:40> Subjective - Date & Time of Evaluation Date of Evaluation: 06/29/18 Time of Evaluation: 08:45 - Subjective Subjective: General Surgery: Bower Patient recovering well, ambulating, NGT with 100 cc bilious output overnight. UOP now improved and adequate. denies BM and flatus. Objective - Vital Signs/Intake and Output Vital Signs (last 24 hours): Temp Pulse Resp BP Pulse Ox 98.0 F 93 H 19 109/75 99 06/29/18 08:06 06/29/18 08:06 06/29/18 08:06 06/29/18 08:06 06/29/18 08:06 Intake and Output: 06/29/18 06/29/18 06:59 18:59 Intake Total 1575 Output Total 2095 Balance -520 - Medications Medications: Current Medications Clotrimazole (Lotrimin 1% Cream) 1 applic TOP BID [facility] Last Admin: 06/28/18 16:08 Dose: 1 applic Enoxaparin Sodium (Lovenox) 30 mg SC DAILY [facility]; Protocol Last Admin: 06/28/18 12:39 Dose: 30 mg Famotidine (Pepcid) 20 mg IV Q12 [facility] Last Admin: 06/28/18 21:19 Dose: 20 mg Hydromorphone HCl (Dilaudid) 0.5 mg IVP Q3 PRN PRN Reason: Pain, moderate (4-7) Last Admin: 06/28/18 05:32 Dose: 0.5 mg Piperacillin Sod/Tazobactam (Sod 3.375 gm/ Sodium Chloride) 100 mls @ 100 mls/h r IVPB Q6 [facility]; Protocol Last Admin: 06/29/18 04:14 Dose: 100 mls/hr Morphine Sulfate (Morphine) 2 mg IVP Q4 PRN PRN Reason: Pain, moderate (4-7) Last Admin: 06/28/18 22:43 Dose: 2 mg Ondansetron HCl (Zofran Inj) 4 mg IVP Q4 PRN PRN Reason: Nausea/Vomiting Last Admin: 06/28/18 12:38 Dose: 4 mg Zolpidem Tartrate (Ambien) 5 mg PO HS PRN PRN Reason: Insomnia Last Admin: 06/26/18 22:24 Dose: 5 mg - Labs Labs: 06/29/18 06:15 06/29/18 06:15 PT 11.6 Seconds (9.8-13.1) 06/25/18 00:40 INR 1.0 06/25/18 00:40 APTT 25.9 Seconds (25.6-37.1) 06/25/18 00:40 - Constitutional Appears: Well, Non-toxic, No Acute Distress - Head Exam Head Exam: ATRAUMATIC, NORMOCEPHALIC - Eye Exam Eye Exam: EOMI - ENT Exam ENT Exam: Mucous Membranes Moist - Respiratory Exam Respiratory Exam: NORMAL BREATHING PATTERN - Cardiovascular Exam Cardiovascular Exam: REGULAR RHYTHM - GI/Abdominal Exam GI & Abdominal Exam: Soft, Tenderness (appropriate incisional). absent: Guarding, Rebound Additional comments: OnQ in place drain site CDI, incision cdi - Extremities Exam Extremities Exam: absent: Calf Tenderness, Pedal Edema - Neurological Exam Neurological Exam: Alert, Awake, Oriented x3 - Psychiatric Exam Psychiatric exam: Normal Affect, Normal Mood - Skin Skin Exam: Dry, Intact, Normal Color, Warm Assessment and Plan - Assessment and Plan (Free Text) Assessment: 68F with SBO s/p diagnostic laparoscopy, extensive laparoscopic enterolysis, exp loratory laparotomy with small bowel resection and primary anastomosis POD 2 Plan: sips and chips ABx Anti-emetics/Analgesics DVT ppx OOB to chair and ambulation Incentive spirometer Replete electrolytes as necessary d/c grant will D/w Dr. Elliott, PGY 1 <Fortunato Vallejo - Last Filed: 06/30/18 17:45> Objective - Vital Signs/Intake and Output Vital Signs (last 24 hours): Temp Pulse Resp BP Pulse Ox 97.2 F L 70 18 131/77 95 06/30/18 16:41 06/30/18 16:41 06/30/18 16:41 06/30/18 16:41 06/30/18 16:41 - Medications Medications: Current Medications Clotrimazole (Lotrimin 1% Cream) 1 applic TOP BID [facility] Last Admin: 06/30/18 16:22 Dose: 1 applic Enoxaparin Sodium (Lovenox) 30 mg SC DAILY [facility]; Protocol Last Admin: 06/30/18 10:01 Dose: 30 mg Famotidine (Pepcid) 20 mg IV Q12 [facility] Last Admin: 06/30/18 10:01 Dose: 20 mg Piperacillin Sod/Tazobactam (Sod 3.375 gm/ Sodium Chloride) 100 mls @ 100 mls/hr IVPB Q6 [facility]; Protocol Last Admin: 06/30/18 16:22 Dose: 100 mls/hr Ketorolac Tromethamine (Toradol) 30 mg IVP Q6 PRN PRN Reason: Pain, moderate (4-7) Ondansetron HCl (Zofran Inj) 4 mg IVP Q4 PRN PRN Reason: Nausea/Vomiting Last Admin: 06/28/18 12:38 Dose: 4 mg Phenol/Menthol (Phenaseptic 1.4% Throat [place]) 1 spry MT Q2 PRN PRN Reason: Sore Throat Last Admin: 06/30/18 10:06 Dose: 1 spr - Labs Labs: 06/30/18 06:00 06/30/18 06:00 PT 11.6 Seconds (9.8-13.1) 06/25/18 00:40 INR 1.0 06/25/18 00:40 APTT 25.9 Seconds (25.6-37.1) 06/25/18 00:40 Assessment and Plan - Assessment and Plan (Free Text) Plan: All medical record entries made by the resident were at my direction. I have reviewed the chart and agree that the record accurately reflects my personal performance of the history, physical exam, and medical decision making.
[2018-06-29] MEDS: Enoxaparin 30 mg Syringe SC SCH (10:44)
--- NOTE | 2018-06-29 12:34 | CP.PCM.PN ---
Subjective - Date & Time of Evaluation Date of Evaluation: 06/29/18 Time of Evaluation: 08:00 - Subjective Subjective: 68F with SBO s/p diagnostic laparoscopy, extensive laparoscopic enterolysis, exploratory laparotomy with small bowel resection and primary anastomosis POD 2 appears comfortable in NAD dernies fever Objective - Vital Signs/Intake and Output Vital Signs (last 24 hours): Temp Pulse Resp BP Pulse Ox 98.0 F 93 H 19 109/75 99 06/29/18 08:06 06/29/18 08:06 06/29/18 08:06 06/29/18 08:06 06/29/18 08:06 Intake and Output: 06/29/18 06/29/18 06:59 18:59 Intake Total 1575 Output Total 2095 Balance -520 - Medications Medications: Current Medications Clotrimazole (Lotrimin 1% Cream) 1 applic TOP BID [facility] Last Admin: 06/29/18 10:45 Dose: 1 applic Enoxaparin Sodium (Lovenox) 30 mg SC DAILY [facility]; Protocol Last Admin: 06/29/18 10:44 Dose: 30 mg Famotidine (Pepcid) 20 mg IV Q12 [facility] Last Admin: 06/29/18 10:42 Dose: 20 mg Hydromorphone HCl (Dilaudid) 0.5 mg IVP Q3 PRN PRN Reason: Pain, moderate (4-7) Last Admin: 06/28/18 05:32 Dose: 0.5 mg Piperacillin Sod/Tazobactam (Sod 3.375 gm/ Sodium Chloride) 100 mls @ 100 mls/hr IVPB Q6 [facility]; Protocol Last Admin: 06/29/18 10:49 Dose: 100 mls/hr Ondansetron HCl (Zofran Inj) 4 mg IVP Q4 PRN PRN Reason: Nausea/Vomiting Last Admin: 06/28/18 12:38 Dose: 4 mg Zolpidem Tartrate (Ambien) 5 mg PO HS PRN PRN Reason: Insomnia Last Admin: 06/26/18 22:24 Dose: 5 mg - Labs Labs: 06/29/18 06:15 06/29/18 06:15 PT 11.6 Seconds (9.8-13.1) 06/25/18 00:40 INR 1.0 06/25/18 00:40 APTT 25.9 Seconds (25.6-37.1) 06/25/18 00:40 - Constitutional Appears: Non-toxic, No Acute Distress, Chronically Ill - Head Exam Head Exam: NORMOCEPHALIC - Eye Exam Eye Exam: absent: Scleral icterus Pupil Exam: NORMAL ACCOMODATION - ENT Exam ENT Exam: Mucous Membranes Dry Additional comments: NGT in place - Neck Exam Neck Exam: absent: Lymphadenopathy - Respiratory Exam Respiratory Exam: Decreased Breath Sounds, Clear to Ausculation Bilateral - Cardiovascular Exam Cardiovascular Exam: REGULAR RHYTHM, +S1, +S2 - GI/Abdominal Exam GI & Abdominal Exam: Distended, Soft. absent: Tenderness Additional comments: drains in place belly soft distended BS diminished - Rectal Exam Rectal Exam: Deferred - Exam Exam: NORMAL INSPECTION - Extremities Exam Extremities Exam: absent: Pedal Edema - Back Exam Back Exam: absent: CVA tenderness (L), CVA tenderness (R) - Neurological Exam Neurological Exam: Alert, Awake, CN II-XII Intact, Oriented x3 - Psychiatric Exam Psychiatric exam: Depressed - Skin Skin Exam: Dry Assessment and Plan (1) Asthma Status: Acute (2) Small bowel obstruction Status: Acute (3) Small bowel obstruction, partial Status: Acute (4) Small bowel obstruction, partial Status: Acute (5) Intermittent small bowel obstruction Status: Acute - Assessment and Plan (Free Text) Assessment: 68F with SBO s/p diagnostic laparoscopy, extensive laparoscopic enterolysis, exploratory laparotomy with small bowel resection and primary anastomosis POD 2 doing well so far WBC/ left shift noted IV antibiotics in progress
[2018-06-29] MEDS: Potassium CL 10mEq/100ml 100 ML IVPB SCH ×2 (17:10→20:00)
[2018-06-29] MEDS: Potassium Ch 20mEq in D5-1/2NS 1,000 ML IV SCH (20:58)
[2018-06-29] MEDS: Phenol 1.4% Throat Spray MT PRN (21:14)
--- NOTE | 2018-06-30 03:04 | CP.PCM.PN ---
Subjective - Date & Time of Evaluation Date of Evaluation: 06/28/18 Time of Evaluation: 10:00 - Subjective Subjective: Pt seen and assessed at bedside, had a diagnostic laparoscopy, extensive laparoscopic enterolysis, and small bowel resection with primary anastomosis done yesterday. At present she is c/o abdominal pain on occasion, and the inability to pass gas so far. Subjective Review of Systems: Reviewed and no additional remarkable complaints except abdominal pain and nasal discomfort. Objective Appears: Anxious, Non-toxic, No Acute Distress. Head Exam: NORMAL INSPECTION, normocephalic. NGT in place with bilious fluid draining. Eye Exam: Normal eye inspection, EOMI, PERRLA. Respiratory Exam: NORMAL BREATHING PATTERN, breath sounds clear bilaterally. Cardiovascular Exam: +S1, +S2. RRR. GI & Abdominal Exam: Distended, abdominal binder in place, unable to pass marcus at this time. Neurological Exam: Alert, Awake, Oriented x3. Psychiatric exam: Normal mood. Calm and cooperative. Skin exam: Normal color, warm, dry. Assessment/Impression/Plan: 1.) Partial Small Bowel Obstruction -Surgery done yesterday; pt currently has a ROCHELLE drain to the abdomen, and an NGT draining bilious fluid. -Encouraged ambulation; monitor flatus and bowel movements. -NPO at this time. -Serial abdominal imaging. -Consults input appreciated. -Pain relief measures. -Continue current treatment. Objective - Vital Signs/Intake and Output Vital Signs (last 24 hours): Temp Pulse Resp BP Pulse Ox 97.6 F 89 18 138/81 97 06/30/18 00:29 06/30/18 00:29 06/30/18 00:29 06/30/18 00:29 06/30/18 00:29 Intake and Output: 06/29/18 06/30/18 18:59 06:59 Intake Total 1500 Output Total 875 Balance 625 - Medications Medications: Current Medications Clotrimazole (Lotrimin 1% Cream) 1 applic TOP BID [facility] Last Admin: 06/29/18 17:07 Dose: 1 applic Enoxaparin Sodium (Lovenox) 30 mg SC DAILY [facility]; Protocol Last Admin: 06/29/18 10:44 Dose: 30 mg Famotidine (Pepcid) 20 mg IV Q12 [facility] Last Admin: 06/29/18 20:56 Dose: 20 mg Hydromorphone HCl (Dilaudid) 0.5 mg IVP Q3 PRN PRN Reason: Pain, moderate (4-7) Last Admin: 06/28/18 05:32 Dose: 0.5 mg Piperacillin Sod/Tazobactam (Sod 3.375 gm/ Sodium Chloride) 100 mls @ 100 mls/hr IVPB Q6 [facility]; Protocol Last Admin: 06/29/18 17:08 Dose: 100 mls/hr Potassium Chloride/Dextrose/Sod Cl (Potassium Chl 20 Meq In D5-1/2ns) 1,000 mls @ 60 mls/hr IV .[id number] [facility] Stop: 06/30/18 12:55 Last Admin: 06/29/18 20:58 Dose: 60 mls/hr Ondansetron HCl (Zofran Inj) 4 mg IVP Q4 PRN PRN Reason: Nausea/Vomiting Last Admin: 06/28/18 12:38 Dose: 4 mg Phenol/Menthol (Phenaseptic 1.4% Throat [place]) 1 spry MT Q2 PRN PRN Reason: Sore Throat Last Admin: 06/29/18 21:14 Dose: 1 spr - Labs Labs: 06/29/18 06:15 06/29/18 06:15 PT 11.6 Seconds (9.8-13.1) 06/25/18 00:40 INR 1.0 06/25/18 00:40 APTT 25.9 Seconds (25.6-37.1) 06/25/18 00:40 Assessment and Plan (1) Small bowel obstruction, partial Status: Acute
--- NOTE | 2018-06-30 03:11 | CP.PCM.PN ---
Subjective - Date & Time of Evaluation Date of Evaluation: 06/29/18 Time of Evaluation: 09:45 - Subjective Subjective: Pt seen and assessed, ambulating freely in the hallway with family. At this time, pt reports still being unable to pass gas. Reports improved pain. Subjective Review of Systems: Reviewed and no additional remarkable complaints except abdominal pain and nasal/throat discomfort from NGT. Objective Appears: Anxious, Non-toxic, No Acute Distress. Head Exam: NORMAL INSPECTION, normocephalic. NGT in place with bilious fluid draining. Eye Exam: Normal eye inspection, EOMI, PERRLA. Respiratory Exam: NORMAL BREATHING PATTERN, breath sounds clear bilaterally. Cardiovascular Exam: +S1, +S2. RRR. GI & Abdominal Exam: Distended, abdominal binder in place, unable to pass marcus at this time. Neurological Exam: Alert, Awake, Oriented x3. Psychiatric exam: Normal mood. Calm and cooperative. Skin exam: Normal color, warm, dry. Assessment/Impression/Plan: 1.) Partial Small Bowel Obstruction -Post-op day 2. -NGT draining bilious fluid. -Frequent ambulation; monitor flatus and bowel movements. -Remains NPO with NGT in place. -Serial abdominal imaging. -Consults input appreciated. -Pain relief measures. -Continue current treatment. Objective - Vital Signs/Intake and Output Vital Signs (last 24 hours): Temp Pulse Resp BP Pulse Ox 97.6 F 89 18 138/81 97 06/30/18 00:29 06/30/18 00:29 06/30/18 00:29 06/30/18 00:29 06/30/18 00:29 Intake and Output: 06/29/18 06/30/18 18:59 06:59 Intake Total 1500 Output Total 875 Balance 625 - Medications Medications: Current Medications Clotrimazole (Lotrimin 1% Cream) 1 applic TOP BID [facility] Last Admin: 06/29/18 17:07 Dose: 1 applic Enoxaparin Sodium (Lovenox) 30 mg SC DAILY [facility]; Protocol Last Admin: 06/29/18 10:44 Dose: 30 mg Famotidine (Pepcid) 20 mg IV Q12 [facility] Last Admin: 06/29/18 20:56 Dose: 20 mg Hydromorphone HCl (Dilaudid) 0.5 mg IVP Q3 PRN PRN Reason: Pain, moderate (4-7) Last Admin: 06/28/18 05:32 Dose: 0.5 mg Piperacillin Sod/Tazobactam (Sod 3.375 gm/ Sodium Chloride) 100 mls @ 100 mls/hr IVPB Q6 [facility]; Protocol Last Admin: 06/29/18 17:08 Dose: 100 mls/hr Potassium Chloride/Dextrose/Sod Cl (Potassium Chl 20 Meq In D5-1/2ns) 1,000 mls @ 60 mls/hr IV .[id number] [facility] Stop: 06/30/18 12:55 Last Admin: 06/29/18 20:58 Dose: 60 mls/hr Ondansetron HCl (Zofran Inj) 4 mg IVP Q4 PRN PRN Reason: Nausea/Vomiting Last Admin: 06/28/18 12:38 Dose: 4 mg Phenol/Menthol (Phenaseptic 1.4% Throat [place]) 1 spry MT Q2 PRN PRN Reason: Sore Throat Last Admin: 06/29/18 21:14 Dose: 1 spr - Labs Labs: 06/29/18 06:15 06/29/18 06:15 PT 11.6 Seconds (9.8-13.1) 06/25/18 00:40 INR 1.0 06/25/18 00:40 APTT 25.9 Seconds (25.6-37.1) 06/25/18 00:40 Assessment and Plan (1) Small bowel obstruction, partial Status: Acute
[2018-06-30] MEDS: Piperacillin/Tazobact 3.375 GM in Sodium Chloride 0.9% 100 ML IVPB SCH ×4 (03:46→21:00)
[2018-06-30] MEDS: Potassium Ch 20mEq in D5-1/2NS 1,000 ML IV SCH (06:18)
[2018-06-30] MEDS: Phenol 1.4% Throat Spray MT PRN ×2 (06:22→10:06)
[2018-06-30 06:27] LABS: ALB/GLOB RATIO 1.1 (1.0-2.1); ALT/SGPT 54 U/L (9-52); AST/SGOT 34 U/L (14-36); BASO % 0.3 % (0.0-2.0); BLOOD UREA NITROGEN 11 mg/dl (7-17); EOS # 0.1 K/uL (0.0-0.7); EOS % 0.4 % (0.0-4.0); GFR NON-AFRICAN AMERICAN > 60; HEMOGLOBIN 8.5 g/dL (12.0-16.0); LYMPH # 1.1 K/uL (1.0-4.3); LYMPH % 8.4 % (20.0-40.0); MEAN CELL VOLUME 88.7 fl (81.0-99.0); MEAN CORPUSCULAR HEMOGLOBIN 28.5 pg (27.0-31.0); MEAN CORPUSCULAR HGB CONC 32.1 g/dL (33.0-37.0); MEAN PLATELET VOLUME 9.8 fl (7.2-11.7); MONO # 0.6 K/uL (0.0-0.8); MONO % 4.8 % (0.0-10.0); NEUT # 10.7 K/uL (1.8-7.0); NEUT % 86.1 % (50.0-75.0); NRBC % 0.1 % (0.0-0.0); RBC 2.98 Mil/uL (3.80-5.20); RED CELL DISTRIBUTION WIDTH 13.4 % (11.5-14.5); WHITE BLOOD COUNT 12.5 K/uL (4.8-10.8)
--- NOTE | 2018-06-30 07:29 | CP.PCM.PN ---
<Mariely Lackey - Last Filed: 06/30/18 09:48> Subjective - Date & Time of Evaluation Date of Evaluation: 06/30/18 Time of Evaluation: 07:29 - Subjective Subjective: General Surgery Note: Bower 68 year old female patient seen and examined at bedside this morning. Patient endorses mild tenderness to surgical site with increased drainage to dressing. NGT with 50cc bilious output overnight. Patient denies BM, admits to + flatus. Denies nausea/vomiting/fever. Objective - Vital Signs/Intake and Output Vital Signs (last 24 hours): Temp Pulse Resp BP Pulse Ox 97.6 F 89 18 138/81 97 06/30/18 00:29 06/30/18 00:29 06/30/18 00:29 06/30/18 00:29 06/30/18 00:29 - Medications Medications: Current Medications Clotrimazole (Lotrimin 1% Cream) 1 applic TOP BID [facility] Last Admin: 06/29/18 17:07 Dose: 1 applic Enoxaparin Sodium (Lovenox) 30 mg SC DAILY [facility]; Protocol Last Admin: 06/29/18 10:44 Dose: 30 mg Famotidine (Pepcid) 20 mg IV Q12 [facility] Last Admin: 06/29/18 20:56 Dose: 20 mg Hydromorphone HCl (Dilaudid) 0.5 mg IVP Q3 PRN PRN Reason: Pain, moderate (4-7) Last Admin: 06/28/18 05:32 Dose: 0.5 mg Piperacillin Sod/Tazobactam (Sod 3.375 gm/ Sodium Chloride) 100 mls @ 100 mls/hr IVPB Q6 [facility]; Protocol Last Admin: 06/30/18 03:46 Dose: 100 mls/hr Potassium Chloride/Dextrose/Sod Cl (Potassium Chl 20 Meq In D5-1/2ns) 1,000 mls @ 60 mls/hr IV .[id number] [facility] Stop: 06/30/18 12:55 Last Admin: 06/30/18 06:18 Dose: Not Given Ondansetron HCl (Zofran Inj) 4 mg IVP Q4 PRN PRN Reason: Nausea/Vomiting Last Admin: 06/28/18 12:38 Dose: 4 mg Phenol/Menthol (Phenaseptic 1.4% Throat [place]) 1 spry MT Q2 PRN PRN Reason: Sore Throat Last Admin: 06/30/18 06:22 Dose: 1 spr - Labs Labs: 06/30/18 06:00 06/30/18 06:00 PT 11.6 Seconds (9.8-13.1) 06/25/18 00:40 INR 1.0 06/25/18 00:40 APTT 25.9 Seconds (25.6-37.1) 06/25/18 00:40 - Constitutional Appears: Non-toxic, No Acute Distress - Head Exam Head Exam: ATRAUMATIC, NORMOCEPHALIC - Eye Exam Eye Exam: Normal appearance - ENT Exam ENT Exam: Mucous Membranes Moist - Respiratory Exam Respiratory Exam: NORMAL BREATHING PATTERN - Cardiovascular Exam Cardiovascular Exam: REGULAR RHYTHM - GI/Abdominal Exam GI & Abdominal Exam: Soft Additional comments: OnQ in place Drain site clean/dry/intact Incision site john intact, increased serous drainage appreciated, no erythema present - Extremities Exam Extremities Exam: absent: Calf Tenderness - Neurological Exam Neurological Exam: Alert, Awake, Oriented x3 - Psychiatric Exam Psychiatric exam: Normal Affect, Normal Mood - Skin Skin Exam: Warm Assessment and Plan - Assessment and Plan (Free Text) Assessment: 68 year old female POD#3 diagnostic laparoscopy, extensive laparoscopic enterol ysis, exploratory laparotomy with small bowel resection and primary anastomosis Plan: - Sips and chips - C/w IV abx - Incentive spirometer - Replete electrolytes PRN - Pain control - Further recs per Dr. Ruano PGY 1 <Fortunato Vallejo - Last Filed: 06/30/18 17:45> Objective - Vital Signs/Intake and Output Vital Signs (last 24 hours): Temp Pulse Resp BP Pulse Ox 97.2 F L 70 18 131/77 95 06/30/18 16:41 06/30/18 16:41 06/30/18 16:41 06/30/18 16:41 06/30/18 16:41 - Medications Medications: Current Medications Clotrimazole (Lotrimin 1% Cream) 1 applic TOP BID [facility] Last Admin: 06/30/18 16:22 Dose: 1 applic Enoxaparin Sodium (Lovenox) 30 mg SC DAILY [facility]; Protocol Last Admin: 06/30/18 10:01 Dose: 30 mg Famotidine (Pepcid) 20 mg IV Q12 [facility] Last Admin: 06/30/18 10:01 Dose: 20 mg Piperacillin Sod/Tazobactam (Sod 3.375 gm/ Sodium Chloride) 100 mls @ 100 mls/hr IVPB Q6 [facility]; Protocol Last Admin: 06/30/18 16:22 Dose: 100 mls/hr Ketorolac Tromethamine (Toradol) 30 mg IVP Q6 PRN PRN Reason: Pain, moderate (4-7) Ondansetron HCl (Zofran Inj) 4 mg IVP Q4 PRN PRN Reason: Nausea/Vomiting Last Admin: 06/28/18 12:38 Dose: 4 mg Phenol/Menthol (Phenaseptic 1.4% Throat [place]) 1 spry MT Q2 PRN PRN Reason: Sore Throat Last Admin: 06/30/18 10:06 Dose: 1 spr - Labs Labs: 06/30/18 06:00 06/30/18 06:00 PT 11.6 Seconds (9.8-13.1) 06/25/18 00:40 INR 1.0 06/25/18 00:40 APTT 25.9 Seconds (25.6-37.1) 06/25/18 00:40 Assessment and Plan - Assessment and Plan (Free Text) Plan: All medical record entries made by the resident were at my direction. I have rev iewed the chart and agree that the record accurately reflects my personal performance of the history, physical exam, and medical decision making.
[2018-06-30] MEDS: Enoxaparin 30 mg Syringe SC SCH (10:01)
[2018-06-30] MEDS: Potassium Chloride 20 mEq/15 ml LIQ UD PO SCH ×3 (10:02→16:21)
--- NOTE | 2018-06-30 19:46 | CP.PCM.PN ---
Subjective - Date & Time of Evaluation Date of Evaluation: 06/30/18 Time of Evaluation: 10:00 - Subjective Subjective: patient seen and examined at bedside. Interim events noted able to pass gas, no BM yet, pain controlled denies cp/sob/fever/chills. available diagnostic data reviewed Review of Systems All systems: reviewed and no additional remarkable complaints except mentioned above Objective Vital Signs Stable - Constitutional Appears: Non-toxic, No Acute Distress Head Exam: NORMAL INSPECTION Eye Exam: Normal appearance Respiratory Exam: NORMAL BREATHING PATTERN Cardiovascular Exam: +S1, +S2 GI & Abdominal Exam: drains in place Neurological Exam: Alert, Awake Psychiatric exam: Normal Affect, Normal Mood Skin Exam: Normal Color, Warm Assessment and Plan monitor vitals monitor labs Cont meds Cont tx consultants appreciated input possible removal of NG tube today rest of plan as ordered Objective - Vital Signs/Intake and Output Vital Signs (last 24 hours): Temp Pulse Resp BP Pulse Ox 97.2 F L 70 18 131/77 95 06/30/18 17:00 06/30/18 17:00 06/30/18 17:00 06/30/18 17:00 06/30/18 17:00 Intake and Output: 06/30/18 07/01/18 18:59 06:59 Output Total 30 Balance -30 - Medications Medications: Current Medications Clotrimazole (Lotrimin 1% Cream) 1 applic TOP BID [facility] Last Admin: 06/30/18 16:22 Dose: 1 applic Enoxaparin Sodium (Lovenox) 30 mg SC DAILY [facility]; Protocol Last Admin: 06/30/18 10:01 Dose: 30 mg Famotidine (Pepcid) 20 mg IV Q12 [facility] Last Admin: 06/30/18 10:01 Dose: 20 mg Piperacillin Sod/Tazobactam (Sod 3.375 gm/ Sodium Chloride) 100 mls @ 100 mls/hr IVPB Q6 [facility]; Protocol Last Admin: 06/30/18 16:22 Dose: 100 mls/hr Ketorolac Tromethamine (Toradol) 30 mg IVP Q6 PRN PRN Reason: Pain, moderate (4-7) Ondansetron HCl (Zofran Inj) 4 mg IVP Q4 PRN PRN Reason: Nausea/Vomiting Last Admin: 06/28/18 12:38 Dose: 4 mg Phenol/Menthol (Phenaseptic 1.4% Throat [place]) 1 spry MT Q2 PRN PRN Reason: Sore Throat Last Admin: 06/30/18 10:06 Dose: 1 spr - Labs Labs: 06/30/18 06:00 06/30/18 06:00 PT 11.6 Seconds (9.8-13.1) 06/25/18 00:40 INR 1.0 06/25/18 00:40 APTT 25.9 Seconds (25.6-37.1) 06/25/18 00:40 Assessment and Plan (1) Small bowel obstruction Status: Acute
[2018-07-01] MEDS: Piperacillin/Tazobact 3.375 GM in Sodium Chloride 0.9% 100 ML IVPB SCH ×4 (03:27→23:26)
[2018-07-01 06:09] LABS: BASO % 0.2 % (0.0-2.0); EOS # 0.2 K/uL (0.0-0.7); EOS % 1.9 % (0.0-4.0); HEMOGLOBIN 8.5 g/dL (12.0-16.0); LYMPH # 1.3 K/uL (1.0-4.3); LYMPH % 10.6 % (20.0-40.0); MEAN CELL VOLUME 87.6 fl (81.0-99.0); MEAN CORPUSCULAR HEMOGLOBIN 28.7 pg (27.0-31.0); MEAN CORPUSCULAR HGB CONC 32.8 g/dL (33.0-37.0); MEAN PLATELET VOLUME 9.3 fl (7.2-11.7); MONO # 0.7 K/uL (0.0-0.8); MONO % 5.8 % (0.0-10.0); NEUT # 9.9 K/uL (1.8-7.0); NEUT % 81.5 % (50.0-75.0); NRBC % 0.1 % (0.0-0.0); RBC 2.97 Mil/uL (3.80-5.20); RED CELL DISTRIBUTION WIDTH 13.2 % (11.5-14.5); WHITE BLOOD COUNT 12.2 K/uL (4.8-10.8)
[2018-07-01 06:19] LABS: ALBUMIN 2.9 g/dL (3.5-5.0); ALT/SGPT 45 U/L (9-52); AST/SGOT 29 U/L (14-36); BLOOD UREA NITROGEN 12 mg/dl (7-17); CALCIUM 8.2 mg/dL (8.4-10.2); GFR NON-AFRICAN AMERICAN > 60
[2018-07-01] MEDS ORDERED: Bupivacaine 0.25% 300 ML in Sodium Chloride 0.9% 300 ML IS ONE (08:08)
--- NOTE | 2018-07-01 08:15 | CP.PCM.PN ---
<Shaun Iniguez - Last Filed: 07/01/18 08:16> Subjective - Date & Time of Evaluation Date of Evaluation: 07/01/18 Time of Evaluation: 08:13 - Subjective Subjective: General Surgery Note for Dr. Bower Patient seen and examined at bedside. No acute event overnight. Patient states pain is controlled. She denies fever/chills or nausea/vomiting. Patient reports flatus and BM yesterday. She states she is hungry. Patient is feeling much better with NGT and grant removed. Rishi drain with 55cc/24hrs of serosanginuous output. Objective - Vital Signs/Intake and Output Vital Signs (last 24 hours): Temp Pulse Resp BP Pulse Ox 98.2 F 60 18 153/83 H 95 07/01/18 00:20 07/01/18 00:20 07/01/18 00:20 07/01/18 00:20 07/01/18 00:20 Intake and Output: 07/01/18 07/01/18 06:59 18:59 Output Total 25 Balance -25 - Medications Medications: Current Medications Alprazolam (Xanax) 0.5 mg PO PRN PRN PRN Reason: Anxiety Amlodipine Besylate (Norvasc) 5 mg PO DAILY [facility] Carbamazepine (Tegretol-Xr) mg PO DAILY [facility] Clotrimazole (Lotrimin 1% Cream) 1 applic TOP BID [facility] Last Admin: 06/30/18 16:22 Dose: 1 applic Enoxaparin Sodium (Lovenox) 30 mg SC DAILY [facility]; Protocol Last Admin: 06/30/18 10:01 Dose: 30 mg Famotidine (Pepcid) 20 mg IV Q12 [facility] Last Admin: 06/30/18 22:07 Dose: 20 mg Famotidine (Pepcid) 20 mg PO DAILY [facility] Home Med (Rosuvastatin Calcium [Crestor]) 5 mg PO DAILY [facility] Piperacillin Sod/Tazobactam (Sod 3.375 gm/ Sodium Chloride) 100 mls @ 100 mls/hr IVPB Q6 [facility]; Protocol Last Admin: 07/01/18 03:27 Dose: 100 mls/hr Bupivacaine HCl 300 ml/ Sodium (Chloride) 600 mls @ 5 mls/hr IS .Q24H ONE Stop: 07/02/18 08:07 Ketorolac Tromethamine (Toradol) 30 mg IVP Q6 PRN PRN Reason: Pain, moderate (4-7) Last Admin: 06/30/18 20:53 Dose: 30 mg Meclizine HCl (Antivert) 25 mg PO DAILY [facility] Ondansetron HCl (Zofran Inj) 4 mg IVP Q4 PRN PRN Reason: Nausea/Vomiting Last Admin: 06/28/18 12:38 Dose: 4 mg Phenol/Menthol (Phenaseptic 1.4% Throat [place]) 1 spry MT Q2 PRN PRN Reason: Sore Throat Last Admin: 06/30/18 10:06 Dose: 1 spr Zolpidem Tartrate (Ambien) 5 mg PO HS PRN PRN Reason: Insomnia Last Admin: 06/30/18 22:06 Dose: 5 mg - Labs Labs: 07/01/18 05:45 07/01/18 05:45 PT 11.6 Seconds (9.8-13.1) 06/25/18 00:40 INR 1.0 06/25/18 00:40 APTT 25.9 Seconds (25.6-37.1) 06/25/18 00:40 - Constitutional Appears: No Acute Distress - Head Exam Head Exam: ATRAUMATIC, NORMOCEPHALIC - Eye Exam Eye Exam: EOMI, Normal appearance Pupil Exam: PERRL - ENT Exam ENT Exam: Mucous Membranes Moist - Respiratory Exam Respiratory Exam: NORMAL BREATHING PATTERN - Cardiovascular Exam Cardiovascular Exam: REGULAR RHYTHM - GI/Abdominal Exam GI & Abdominal Exam: Soft, Normal Bowel Sounds. absent: Distended, Firm, Guarding, Rigid, Tenderness, Rebound Additional comments: midline incision with john, minimal drainage - dressing changed Rishi drain in RLQ ON-Q pump in place - Extremities Exam Extremities Exam: Normal Capillary Refill - Back Exam Back Exam: absent: CVA tenderness (L), CVA tenderness (R) - Neurological Exam Neurological Exam: Alert, Awake, CN II-XII Intact, Normal Gait, Oriented x3 - Psychiatric Exam Psychiatric exam: Normal Affect, Normal Mood - Skin Skin Exam: Dry, Normal Color, Warm Assessment and Plan - Assessment and Plan (Free Text) Assessment: 68 F diagnostic laparoscopy, extensive laparoscopic enterolysis, exploratory laparotomy with small bowel resection and primary anastomosis POD#4 Plan: - CLD, ADAT - IV abx - Incentive spirometer - OOB to chair and ambulation - PT - Replete electrolytes PRN - Pain control - Renew ON-Q pump - Discussed with Dr. Strong PGY2 <Fortunato Vallejo - Last Filed: 07/03/18 08:22> Objective - Vital Signs/Intake and Output Vital Signs (last 24 hours): Temp Pulse Resp BP Pulse Ox 97.9 F 75 20 127/76 96 07/03/18 08:02 07/03/18 08:02 07/03/18 08:02 07/03/18 08:02 07/03/18 08:02 Intake and Output: 07/03/18 07/03/18 06:59 18:59 Output Total 35 Balance -35 - Medications Medications: Current Medications Alprazolam (Xanax) 0.5 mg PO PRN PRN PRN Reason: Anxiety Last Admin: 07/03/18 01:05 Dose: 0.5 mg Amlodipine Besylate (Norvasc) 5 mg PO DAILY [facility] Last Admin: 07/02/18 08:39 Dose: 5 mg Atorvastatin Calcium (Lipitor) 10 mg PO DAILY [facility] Last Admin: 07/02/18 08:38 Dose: 10 mg Carbamazepine (Tegretol-Xr) 200 mg PO DAILY [facility] Last Admin: 07/02/18 08:40 Dose: 200 mg Clotrimazole (Lotrimin 1% Cream) 1 applic TOP BID [facility] Last Admin: 07/02/18 16:32 Dose: 1 applic Enoxaparin Sodium (Lovenox) 30 mg SC DAILY [facility]; Protocol Last Admin: 07/02/18 08:38 Dose: 30 mg Famotidine (Pepcid) 20 mg IV Q12 [facility] Last Admin: 07/02/18 21:50 Dose: 20 mg Famotidine (Pepcid) 20 mg PO DAILY [facility] Last Admin: 07/02/18 08:40 Dose: 20 mg Piperacillin Sod/Tazobactam (Sod 3.375 gm/ Sodium Chloride) 100 mls @ 100 mls/hr IVPB Q6 [facility]; Protocol Last Admin: 07/03/18 05:13 Dose: 100 mls/hr Potassium Chloride (Potassium Chloride 10 Meq/100 Ml) 100 mls @ 100 mls/hr IVPB Q1 [facility] Stop: 07/03/18 09:59 Magnesium Sulfate (Magnesium Sulfate 2 Gm/50 Ml Water) 2 gm in 50 mls @ 50 mls/hr IVPB ONCE ONE Stop: 07/03/18 08:44 Ketorolac Tromethamine (Toradol) 30 mg IVP Q6 PRN PRN Reason: Pain, moderate (4-7) Last Admin: 07/03/18 01:05 Dose: 30 mg Meclizine HCl (Antivert) 25 mg PO DAILY [facility] Last Admin: 07/02/18 08:37 Dose: Not Given Ondansetron HCl (Zofran Inj) 4 mg IVP Q4 PRN PRN Reason: Nausea/Vomiting Last Admin: 07/02/18 21:51 Dose: 4 mg Phenol/Menthol (Phenaseptic 1.4% Throat [place]) 1 spry MT Q2 PRN PRN Reason: Sore Throat Last Admin: 06/30/18 10:06 Dose: 1 spr Potassium Chloride (K-Dur 20 Meq Er Tab) 40 meq PO ONCE ONE Stop: 07/03/18 10:01 Simethicone (Mylicon Liq) 40 mg PO Q6 [facility] Last Admin: 07/03/18 04:59 Dose: Not Given Zolpidem Tartrate (Ambien) 5 mg PO HS PRN PRN Reason: Insomnia Last Admin: 07/01/18 23:43 Dose: 5 mg - Labs Labs: 07/03/18 05:55 07/03/18 05:55 PT 11.6 Seconds (9.8-13.1) 06/25/18 00:40 INR 1.0 06/25/18 00:40 APTT 25.9 Seconds (25.6-37.1) 06/25/18 00:40 Assessment and Plan - Assessment and Plan (Free Text) Plan: All medical record entries made by the resident were at my direction. I have reviewed the chart and agree that the record accurately reflects my personal performance of the history, physical exam, and medical decision making.
[2018-07-01] MEDS: Enoxaparin 30 mg Syringe SC SCH (08:20)
[2018-07-01] MEDS ORDERED: Potassium Phosphate 15 MMOLE in Dextrose 5% In Water 250 ML IV ONE (10:10)
--- NOTE | 2018-07-01 10:50 | CP.PCM.PN ---
Subjective - Date & Time of Evaluation Date of Evaluation: 07/01/18 Time of Evaluation: 08:00 - Subjective Subjective: started clear liquids now vomiting copious bile may need ngt placement surgery notifird IV antibiotics renewed Objective - Vital Signs/Intake and Output Vital Signs (last 24 hours): Temp Pulse Resp BP Pulse Ox 98.2 F 70 18 142/91 H 96 07/01/18 08:44 07/01/18 08:44 07/01/18 08:44 07/01/18 10:00 07/01/18 08:44 Intake and Output: 07/01/18 07/01/18 06:59 18:59 Output Total 25 Balance -25 - Medications Medications: Current Medications Alprazolam (Xanax) 0.5 mg PO PRN PRN PRN Reason: Anxiety Amlodipine Besylate (Norvasc) 5 mg PO DAILY [facility] Last Admin: 07/01/18 10:00 Dose: 5 mg Atorvastatin Calcium (Lipitor) 10 mg PO DAILY [facility] Last Admin: 07/01/18 10:01 Dose: 10 mg Carbamazepine (Tegretol-Xr) 200 mg PO DAILY [facility] Last Admin: 07/01/18 09:58 Dose: 200 mg Clotrimazole (Lotrimin 1% Cream) 1 applic TOP BID [facility] Last Admin: 07/01/18 08:20 Dose: 1 applic Enoxaparin Sodium (Lovenox) 30 mg SC DAILY [facility]; Protocol Last Admin: 07/01/18 08:20 Dose: 30 mg Famotidine (Pepcid) 20 mg IV Q12 [facility] Last Admin: 07/01/18 08:28 Dose: 20 mg Famotidine (Pepcid) 20 mg PO DAILY [facility] Last Admin: 07/01/18 09:21 Dose: 20 mg Piperacillin Sod/Tazobactam (Sod 3.375 gm/ Sodium Chloride) 100 mls @ 100 mls/hr IVPB Q6 [facility]; Protocol Last Admin: 07/01/18 10:01 Dose: 100 mls/hr Bupivacaine HCl 300 ml/ Sodium (Chloride) 600 mls @ 5 mls/hr IS .Q24H ONE Stop: 07/02/18 08:07 Potassium Phosphate 15 mmole/ (Dextrose) 255 mls @ 63.75 mls/hr IV .Q4H ONE Stop: 07/01/18 14:09 Ketorolac Tromethamine (Toradol) 30 mg IVP Q6 PRN PRN Reason: Pain, moderate (4-7) Last Admin: 06/30/18 20:53 Dose: 30 mg Meclizine HCl (Antivert) 25 mg PO DAILY [facility] Last Admin: 07/01/18 09:57 Dose: 25 mg Ondansetron HCl (Zofran Inj) 4 mg IVP Q4 PRN PRN Reason: Nausea/Vomiting Last Admin: 07/01/18 10:36 Dose: 4 mg Phenol/Menthol (Phenaseptic 1.4% Throat [place]) 1 spry MT Q2 PRN PRN Reason: Sore Throat Last Admin: 06/30/18 10:06 Dose: 1 spr Zolpidem Tartrate (Ambien) 5 mg PO HS PRN PRN Reason: Insomnia Last Admin: 06/30/18 22:06 Dose: 5 mg - Labs Labs: 07/01/18 05:45 07/01/18 05:45 PT 11.6 Seconds (9.8-13.1) 06/25/18 00:40 INR 1.0 06/25/18 00:40 APTT 25.9 Seconds (25.6-37.1) 06/25/18 00:40 - Constitutional Appears: Non-toxic, Chronically Ill - Head Exam Head Exam: ATRAUMATIC, NORMAL INSPECTION, NORMOCEPHALIC - Eye Exam Eye Exam: EOMI, Normal appearance, PERRL Pupil Exam: NORMAL ACCOMODATION, PERRL - ENT Exam ENT Exam: Mucous Membranes Moist, Normal Exam - Neck Exam Neck Exam: Full ROM, Normal Inspection. absent: Lymphadenopathy - Respiratory Exam Respiratory Exam: Clear to Ausculation Bilateral, NORMAL BREATHING PATTERN - Cardiovascular Exam Cardiovascular Exam: REGULAR RHYTHM, +S1, +S2. absent: Murmur - GI/Abdominal Exam GI & Abdominal Exam: Distended, Firm, Guarding, Diminished Bowel Sounds. absent: Tenderness - Rectal Exam Rectal Exam: Deferred - Exam Exam: NORMAL INSPECTION - Extremities Exam Extremities Exam: Full ROM, Normal Capillary Refill, Normal Inspection. absent: Joint Swelling, Pedal Edema - Back Exam Back Exam: NORMAL INSPECTION - Neurological Exam Neurological Exam: Alert, Awake, CN II-XII Intact, Normal Gait, Oriented x3 - Psychiatric Exam Psychiatric exam: Normal Affect, Normal Mood - Skin Skin Exam: Dry, Intact, Normal Color, Warm Assessment and Plan (1) Asthma Status: Acute (2) Small bowel obstruction Status: Acute (3) Small bowel obstruction, partial Status: Acute (4) Small bowel obstruction, partial Status: Acute (5) Intermittent small bowel obstruction Status: Acute - Assessment and Plan (Free Text) Assessment: cont IV antibiotics surgical follow up check flat plate abd
[2018-07-01] MEDS: Potassium Ch 20mEq in D5-1/2NS 1,000 ML IV SCH (20:00)
[2018-07-02] MEDS: Piperacillin/Tazobact 3.375 GM in Sodium Chloride 0.9% 100 ML IVPB SCH ×4 (05:01→22:50)
[2018-07-02 06:47] LABS: BASO % 0.3 % (0.0-2.0); EOS # 0.3 K/uL (0.0-0.7); EOS % 2.5 % (0.0-4.0); HEMOGLOBIN 8.7 g/dL (12.0-16.0); LYMPH # 1.8 K/uL (1.0-4.3); LYMPH % 17.3 % (20.0-40.0); MEAN CELL VOLUME 87.6 fl (81.0-99.0); MEAN CORPUSCULAR HEMOGLOBIN 28.8 pg (27.0-31.0); MEAN CORPUSCULAR HGB CONC 32.8 g/dL (33.0-37.0); MEAN PLATELET VOLUME 9.3 fl (7.2-11.7); MONO # 1.1 K/uL (0.0-0.8); MONO % 10.6 % (0.0-10.0); NEUT # 7.4 K/uL (1.8-7.0); NEUT % 69.3 % (50.0-75.0); NRBC % 0.1 % (0.0-0.0); RBC 3.03 Mil/uL (3.80-5.20); WHITE BLOOD COUNT 10.6 K/uL (4.8-10.8)
[2018-07-02 07:39] LABS: ALB/GLOB RATIO 1.1 (1.0-2.1); ALBUMIN 2.9 g/dL (3.5-5.0); ALT/SGPT 36 U/L (9-52); AST/SGOT 21 U/L (14-36); BLOOD UREA NITROGEN 9 mg/dl (7-17); CALCIUM 7.8 mg/dL (8.4-10.2); GFR NON-AFRICAN AMERICAN > 60
[2018-07-02] MEDS: Enoxaparin 30 mg Syringe SC SCH (08:38)
[2018-07-02] MEDS: Potassium Ch 20mEq in D5-1/2NS 1,000 ML IV SCH (08:40)
--- NOTE | 2018-07-02 10:06 | RAD ---
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 FINDINGS: BOWEL: The amount of right colonic stool present is less now than before. Interval lower abdominal pelvic skin sutures are in place. Interval cyst changes sutures in the right lateral abdomen have occurred since the prior exam. And apparent interval drain has been placed-projects over the right abdomen at the approximate L3 level. The small-bowel loops that are mild mild moderately distended are compatible with a postop ileus. A partial obstruction cannot be entirely excluded but this is believed less likely. Continued close follow-up is advised. BONES: Lumbosacral spondylosis. Bilateral hip arthrosis. OTHER FINDINGS: None. IMPRESSION: Interval recent postop changes-the small bowel dilated loops are compatible with a post op ileus. An obstructive small bowel obstruction is not entirely excluded-but believed less likely. Close continued clinical follow-up is advised. If further evaluation is still needed, consider follow-up CT abdomen and pelvis
--- NOTE | 2018-07-02 11:34 | CP.PCM.PN ---
<Mariely Lackey - Last Filed: 07/02/18 11:43> Subjective - Date & Time of Evaluation Date of Evaluation: 07/02/18 Time of Evaluation: 11:34 - Subjective Subjective: General Surgery Progress Note: Dr. Bower 68 year old female seen and examined at bedside. Patient reports vomiting bile twice yesterday but has not vomited since last night. She denies nausea/fever/chills this morning. Admits to + BM and flatus. Family present at bedside this morning. Rishi drain with 100cc/24hrs of serosanginuous output. Objective - Vital Signs/Intake and Output Vital Signs (last 24 hours): Temp Pulse Resp BP Pulse Ox 98.0 F 80 20 114/70 98 07/02/18 07:55 07/02/18 08:39 07/02/18 07:55 07/02/18 08:39 07/02/18 07:55 Intake and Output: 07/02/18 07/02/18 06:59 18:59 Output Total 80 Balance -80 - Medications Medications: Current Medications Alprazolam (Xanax) 0.5 mg PO PRN PRN PRN Reason: Anxiety Last Admin: 07/02/18 08:59 Dose: 0.5 mg Amlodipine Besylate (Norvasc) 5 mg PO DAILY [facility] Last Admin: 07/02/18 08:39 Dose: 5 mg Atorvastatin Calcium (Lipitor) 10 mg PO DAILY [facility] Last Admin: 07/02/18 08:38 Dose: 10 mg Carbamazepine (Tegretol-Xr) 200 mg PO DAILY [facility] Last Admin: 07/02/18 08:40 Dose: 200 mg Clotrimazole (Lotrimin 1% Cream) 1 applic TOP BID [facility] Last Admin: 07/02/18 08:38 Dose: 1 applic Enoxaparin Sodium (Lovenox) 30 mg SC DAILY [facility]; Protocol Last Admin: 07/02/18 08:38 Dose: 30 mg Famotidine (Pepcid) 20 mg IV Q12 [facility] Last Admin: 07/02/18 08:52 Dose: 20 mg Famotidine (Pepcid) 20 mg PO DAILY [facility] Last Admin: 07/02/18 08:40 Dose: 20 mg Piperacillin Sod/Tazobactam (Sod 3.375 gm/ Sodium Chloride) 100 mls @ 100 mls/hr IVPB Q6 [facility]; Protocol Last Admin: 07/02/18 05:01 Dose: 100 mls/hr Potassium Chloride/Dextrose/Sod Cl (Potassium Chl 20 Meq In D5-1/2ns) 1,000 mls @ 80 mls/hr IV .[id number] [facility] Stop: 07/02/18 18:58 Last Admin: 07/02/18 08:40 Dose: 80 mls/hr Ketorolac Tromethamine (Toradol) 30 mg IVP Q6 PRN PRN Reason: Pain, moderate (4-7) Last Admin: 06/30/18 20:53 Dose: 30 mg Meclizine HCl (Antivert) 25 mg PO DAILY [facility] Last Admin: 07/02/18 08:37 Dose: Not Given Ondansetron HCl (Zofran Inj) 4 mg IVP Q4 PRN PRN Reason: Nausea/Vomiting Last Admin: 07/01/18 10:36 Dose: 4 mg Phenol/Menthol (Phenaseptic 1.4% Throat [place]) 1 spry MT Q2 PRN PRN Reason: Sore Throat Last Admin: 06/30/18 10:06 Dose: 1 spr Zolpidem Tartrate (Ambien) 5 mg PO HS PRN PRN Reason: Insomnia Last Admin: 07/01/18 23:43 Dose: 5 mg - Labs Labs: 07/02/18 06:05 07/02/18 06:05 PT 11.6 Seconds (9.8-13.1) 06/25/18 00:40 INR 1.0 06/25/18 00:40 APTT 25.9 Seconds (25.6-37.1) 06/25/18 00:40 - Constitutional Appears: Non-toxic, No Acute Distress - Head Exam Head Exam: ATRAUMATIC, NORMOCEPHALIC - Eye Exam Eye Exam: Normal appearance - ENT Exam ENT Exam: Mucous Membranes Moist - Respiratory Exam Respiratory Exam: NORMAL BREATHING PATTERN - GI/Abdominal Exam GI & Abdominal Exam: Soft Additional comments: midline incision with john, skin edges well coapted at this time Mild serous drainage appreciated Rishi drain in RLQ - Neurological Exam Neurological Exam: Alert, Awake, Oriented x3 - Psychiatric Exam Psychiatric exam: Normal Affect, Normal Mood - Skin Skin Exam: Warm Assessment and Plan - Assessment and Plan (Free Text) Assessment: 68 year old female, POD#5 diagnostic laparoscopy, extensive laparoscopic enterolysis, exploratory laparotomy with small bowel resection and primary anastomosis Plan: - sips & chips - IV abx per ID recs - Incentive spirometer - OOB to chair and ambulation - Replete electrolytes PRN - Pain control - Further recs per Dr. Ruano, PGY1 <Fortunato Vallejo - Last Filed: 07/03/18 08:21> Objective - Vital Signs/Intake and Output Vital Signs (last 24 hours): Temp Pulse Resp BP Pulse Ox 97.9 F 75 20 127/76 96 07/03/18 08:02 07/03/18 08:02 07/03/18 08:02 07/03/18 08:02 07/03/18 08:02 Intake and Output: 07/03/18 07/03/18 06:59 18:59 Output Total 35 Balance -35 - Medications Medications: Current Medications Alprazolam (Xanax) 0.5 mg PO PRN PRN PRN Reason: Anxiety Last Admin: 07/03/18 01:05 Dose: 0.5 mg Amlodipine Besylate (Norvasc) 5 mg PO DAILY [facility] Last Admin: 07/02/18 08:39 Dose: 5 mg Atorvastatin Calcium (Lipitor) 10 mg PO DAILY [facility] Last Admin: 07/02/18 08:38 Dose: 10 mg Carbamazepine (Tegretol-Xr) 200 mg PO DAILY [facility] Last Admin: 07/02/18 08:40 Dose: 200 mg Clotrimazole (Lotrimin 1% Cream) 1 applic TOP BID [facility] Last Admin: 07/02/18 16:32 Dose: 1 applic Enoxaparin Sodium (Lovenox) 30 mg SC DAILY [facility]; Protocol Last Admin: 07/02/18 08:38 Dose: 30 mg Famotidine (Pepcid) 20 mg IV Q12 [facility] Last Admin: 07/02/18 21:50 Dose: 20 mg Famotidine (Pepcid) 20 mg PO DAILY [facility] Last Admin: 07/02/18 08:40 Dose: 20 mg Piperacillin Sod/Tazobactam (Sod 3.375 gm/ Sodium Chloride) 100 mls @ 100 mls/hr IVPB Q6 [facility]; Protocol Last Admin: 07/03/18 05:13 Dose: 100 mls/hr Potassium Chloride (Potassium Chloride 10 Meq/100 Ml) 100 mls @ 100 mls/hr IVPB Q1 [facility] Stop: 07/03/18 09:59 Magnesium Sulfate (Magnesium Sulfate 2 Gm/50 Ml Water) 2 gm in 50 mls @ 50 mls/hr IVPB ONCE ONE Stop: 07/03/18 08:44 Ketorolac Tromethamine (Toradol) 30 mg IVP Q6 PRN PRN Reason: Pain, moderate (4-7) Last Admin: 07/03/18 01:05 Dose: 30 mg Meclizine HCl (Antivert) 25 mg PO DAILY [facility] Last Admin: 07/02/18 08:37 Dose: Not Given Ondansetron HCl (Zofran Inj) 4 mg IVP Q4 PRN PRN Reason: Nausea/Vomiting Last Admin: 07/02/18 21:51 Dose: 4 mg Phenol/Menthol (Phenaseptic 1.4% Throat [place]) 1 spry MT Q2 PRN PRN Reason: Sore Throat Last Admin: 06/30/18 10:06 Dose: 1 spr Potassium Chloride (K-Dur 20 Meq Er Tab) 40 meq PO ONCE ONE Stop: 07/03/18 10:01 Simethicone (Mylicon Liq) 40 mg PO Q6 [facility] Last Admin: 07/03/18 04:59 Dose: Not Given Zolpidem Tartrate (Ambien) 5 mg PO HS PRN PRN Reason: Insomnia Last Admin: 07/01/18 23:43 Dose: 5 mg - Labs Labs: 07/03/18 05:55 07/03/18 05:55 PT 11.6 Seconds (9.8-13.1) 06/25/18 00:40 INR 1.0 06/25/18 00:40 APTT 25.9 Seconds (25.6-37.1) 06/25/18 00:40 Assessment and Plan - Assessment and Plan (Free Text) Plan: All medical record entries made by the resident were at my direction. I have reviewed the chart and agree that the record accurately reflects my personal performance of the history, physical exam, and medical decision making. Need to correct electrolytes, continue slow advancement of diet
--- NOTE | 2018-07-02 13:35 | CP.PCM.PN ---
Subjective - Date & Time of Evaluation Date of Evaluation: 07/02/18 Time of Evaluation: 09:00 - Subjective Subjective: still vomiting no fever c/o leg swelling wound ok Objective - Vital Signs/Intake and Output Vital Signs (last 24 hours): Temp Pulse Resp BP Pulse Ox 98.0 F 80 20 114/70 98 07/02/18 07:55 07/02/18 08:39 07/02/18 07:55 07/02/18 08:39 07/02/18 07:55 Intake and Output: 07/02/18 07/02/18 06:59 18:59 Output Total 80 Balance -80 - Medications Medications: Current Medications Alprazolam (Xanax) 0.5 mg PO PRN PRN PRN Reason: Anxiety Last Admin: 07/02/18 08:59 Dose: 0.5 mg Amlodipine Besylate (Norvasc) 5 mg PO DAILY [facility] Last Admin: 07/02/18 08:39 Dose: 5 mg Atorvastatin Calcium (Lipitor) 10 mg PO DAILY [facility] Last Admin: 07/02/18 08:38 Dose: 10 mg Carbamazepine (Tegretol-Xr) 200 mg PO DAILY [facility] Last Admin: 07/02/18 08:40 Dose: 200 mg Clotrimazole (Lotrimin 1% Cream) 1 applic TOP BID [facility] Last Admin: 07/02/18 08:38 Dose: 1 applic Enoxaparin Sodium (Lovenox) 30 mg SC DAILY [facility]; Protocol Last Admin: 07/02/18 08:38 Dose: 30 mg Famotidine (Pepcid) 20 mg IV Q12 [facility] Last Admin: 07/02/18 08:52 Dose: 20 mg Famotidine (Pepcid) 20 mg PO DAILY [facility] Last Admin: 07/02/18 08:40 Dose: 20 mg Piperacillin Sod/Tazobactam (Sod 3.375 gm/ Sodium Chloride) 100 mls @ 100 mls/hr IVPB Q6 [facility]; Protocol Last Admin: 07/02/18 05:01 Dose: 100 mls/hr Potassium Chloride/Dextrose/Sod Cl (Potassium Chl 20 Meq In D5-1/2ns) 1,000 mls @ 80 mls/hr IV .[id number] [facility] Stop: 07/02/18 18:58 Last Admin: 07/02/18 08:40 Dose: 80 mls/hr Potassium Chloride (Potassium Chloride 20 Meq/100 Ml) 100 mls @ 50 mls/hr IVPB Q2 [facility] Stop: 07/02/18 17:59 Ketorolac Tromethamine (Toradol) 30 mg IVP Q6 PRN PRN Reason: Pain, moderate (4-7) Last Admin: 06/30/18 20:53 Dose: 30 mg Meclizine HCl (Antivert) 25 mg PO DAILY [facility] Last Admin: 07/02/18 08:37 Dose: Not Given Ondansetron HCl (Zofran Inj) 4 mg IVP Q4 PRN PRN Reason: Nausea/Vomiting Last Admin: 07/01/18 10:36 Dose: 4 mg Phenol/Menthol (Phenaseptic 1.4% Throat [place]) 1 spry MT Q2 PRN PRN Reason: Sore Throat Last Admin: 06/30/18 10:06 Dose: 1 spr Zolpidem Tartrate (Ambien) 5 mg PO HS PRN PRN Reason: Insomnia Last Admin: 07/01/18 23:43 Dose: 5 mg - Labs Labs: 07/02/18 06:05 07/02/18 06:05 PT 11.6 Seconds (9.8-13.1) 06/25/18 00:40 INR 1.0 06/25/18 00:40 APTT 25.9 Seconds (25.6-37.1) 06/25/18 00:40 - Constitutional Appears: Non-toxic, No Acute Distress, Chronically Ill - Head Exam Head Exam: NORMOCEPHALIC - Eye Exam Eye Exam: absent: Scleral icterus - ENT Exam ENT Exam: Mucous Membranes Dry - Neck Exam Neck Exam: absent: Lymphadenopathy - Respiratory Exam Respiratory Exam: Decreased Breath Sounds, Clear to Ausculation Bilateral - Cardiovascular Exam Cardiovascular Exam: REGULAR RHYTHM, +S1, +S2 - GI/Abdominal Exam GI & Abdominal Exam: Distended, Guarding, Soft, Diminished Bowel Sounds - Rectal Exam Rectal Exam: Deferred - Exam Exam: NORMAL INSPECTION - Back Exam Back Exam: absent: CVA tenderness (L), CVA tenderness (R) - Neurological Exam Neurological Exam: Alert, Awake, Normal Gait, Oriented x3 Neuro motor strength exam: Left Upper Extremity: 4, Right Upper Extremity: 4, Left Lower Extremity: 4, Right Lower Extremity: 4 - Psychiatric Exam Psychiatric exam: Depressed - Skin Skin Exam: Dry Assessment and Plan (1) Asthma Status: Acute (2) Small bowel obstruction Status: Acute (3) Small bowel obstruction, partial Status: Acute (4) Small bowel obstruction, partial Status: Acute (5) Intermittent small bowel obstruction Status: Acute - Assessment and Plan (Free Text) Assessment: will order venous ultrasound seen by surgery kept NPO
[2018-07-02] MEDS: Potassium Chloride 20 mEq 100 ML IVPB SCH ×2 (15:11→17:58)
[2018-07-02 20:02] LABS: ALB/GLOB RATIO 1.2 (1.0-2.1); ALBUMIN 3.2 g/dL (3.5-5.0); ALT/SGPT 42 U/L (9-52); AST/SGOT 27 U/L (14-36); BLOOD UREA NITROGEN 8 mg/dl (7-17); CALCIUM 8.1 mg/dL (8.4-10.2); GFR NON-AFRICAN AMERICAN > 60
[2018-07-02] MEDS ORDERED: Potassium Phosphate 15 MMOLE in Dextrose 5% In Water 250 ML IV ONE (21:30)
[2018-07-03] MEDS: Simethicone 40 mg/0.6 ml Liquid (30 ml) PO SCH ×5 (00:05→21:13)
--- NOTE | 2018-07-03 00:28 | CP.PCM.PN ---
Subjective - Date & Time of Evaluation Date of Evaluation: 07/01/18 Time of Evaluation: 09:00 - Subjective Subjective: Pt seen and assessed, ambulating around the hallway with family. At this time, pt reports being able to pass gas on a few occasions. One vomiting episode was noted; bilious fluid as per staff. Subjective Review of Systems: Reviewed and no additional remarkable complaints except nausea, abdominal pain, and nasal/throat discomfort from previous NGT. Objective Appears: Anxious, Non-toxic, No Acute Distress. Head Exam: NORMAL INSPECTION, normocephalic. Eye Exam: Normal eye inspection, EOMI, PERRLA. Respiratory Exam: NORMAL BREATHING PATTERN, breath sounds clear bilaterally. Cardiovascular Exam: +S1, +S2. RRR. GI & Abdominal Exam: Distended, abdominal binder in place, unable to pass marcus at this time. Neurological Exam: Alert, Awake, Oriented x3. Psychiatric exam: Normal mood. Calm and cooperative. Skin exam: Normal color, warm, dry. Assessment/Impression/Plan: 1.) Partial Small Bowel Obstruction -Vomiting episode noted; bilious fluid. -Monitor vomiting episodes, as this may be indicative of potential post- operative ileus. -Monitor for bowel movements. -Consults input appreciated. -Continue frequent ambulation. -Continue current treatment. Objective - Vital Signs/Intake and Output Vital Signs (last 24 hours): Temp Pulse Resp BP Pulse Ox 98 F 67 18 123/77 100 07/02/18 23:58 07/02/18 23:58 07/02/18 23:58 07/02/18 23:58 07/02/18 23:58 - Medications Medications: Current Medications Alprazolam (Xanax) 0.5 mg PO PRN PRN PRN Reason: Anxiety Last Admin: 07/02/18 08:59 Dose: 0.5 mg Amlodipine Besylate (Norvasc) 5 mg PO DAILY [facility] Last Admin: 07/02/18 08:39 Dose: 5 mg Atorvastatin Calcium (Lipitor) 10 mg PO DAILY [facility] Last Admin: 07/02/18 08:38 Dose: 10 mg Carbamazepine (Tegretol-Xr) 200 mg PO DAILY [facility] Last Admin: 07/02/18 08:40 Dose: 200 mg Clotrimazole (Lotrimin 1% Cream) 1 applic TOP BID [facility] Last Admin: 07/02/18 16:32 Dose: 1 applic Enoxaparin Sodium (Lovenox) 30 mg SC DAILY [facility]; Protocol Last Admin: 07/02/18 08:38 Dose: 30 mg Famotidine (Pepcid) 20 mg IV Q12 [facility] Last Admin: 07/02/18 21:50 Dose: 20 mg Famotidine (Pepcid) 20 mg PO DAILY [facility] Last Admin: 07/02/18 08:40 Dose: 20 mg Piperacillin Sod/Tazobactam (Sod 3.375 gm/ Sodium Chloride) 100 mls @ 100 mls/hr IVPB Q6 [facility]; Protocol Last Admin: 07/02/18 16:00 Dose: 100 mls/hr Potassium Phosphate 15 mmole/ (Dextrose) 255 mls @ 84 mls/hr IV .Q3H3M ONE Stop: 07/03/18 00:32 Ketorolac Tromethamine (Toradol) 30 mg IVP Q6 PRN PRN Reason: Pain, moderate (4-7) Last Admin: 06/30/18 20:53 Dose: 30 mg Meclizine HCl (Antivert) 25 mg PO DAILY [facility] Last Admin: 07/02/18 08:37 Dose: Not Given Ondansetron HCl (Zofran Inj) 4 mg IVP Q4 PRN PRN Reason: Nausea/Vomiting Last Admin: 07/02/18 21:51 Dose: 4 mg Phenol/Menthol (Phenaseptic 1.4% Throat [place]) 1 spry MT Q2 PRN PRN Reason: Sore Throat Last Admin: 06/30/18 10:06 Dose: 1 spr Simethicone (Mylicon Liq) 40 mg PO Q6 [facility] Last Admin: 07/03/18 00:05 Dose: 40 mg Zolpidem Tartrate (Ambien) 5 mg PO HS PRN PRN Reason: Insomnia Last Admin: 07/01/18 23:43 Dose: 5 mg - Labs Labs: 07/02/18 06:05 07/02/18 19:40 PT 11.6 Seconds (9.8-13.1) 06/25/18 00:40 INR 1.0 06/25/18 00:40 APTT 25.9 Seconds (25.6-37.1) 06/25/18 00:40 Assessment and Plan (1) Small bowel obstruction, partial Status: Acute
--- NOTE | 2018-07-03 00:38 | CP.PCM.PN ---
Subjective - Date & Time of Evaluation Date of Evaluation: 07/02/18 Time of Evaluation: 09:00 - Subjective Subjective: Pt seen and assessed, ambulating around the hallway with family. Per staff and patient, several vomiting episodes were noted; bilious drainage reported. Subjective Review of Systems: Reviewed and no additional remarkable complaints except nausea, abdominal pain, and nasal/throat discomfort from previous NGT. Objective Appears: Anxious, Non-toxic, No Acute Distress. Head Exam: NORMAL INSPECTION, normocephalic. Eye Exam: Normal eye inspection, EOMI, PERRLA. Respiratory Exam: NORMAL BREATHING PATTERN, breath sounds clear bilaterally. Cardiovascular Exam: +S1, +S2. RRR. GI & Abdominal Exam: Distended, abdominal binder in place, difficulty passing gas at this time. Neurological Exam: Alert, Awake, Oriented x3. Psychiatric exam: Normal mood. Calm and cooperative. Skin exam: Normal color, warm, dry. Assessment/Impression/Plan: 1.) Partial Small Bowel Obstruction -Several vomiting episodes noted; bilious fluid reported. -KUB X-ray ordered to r/o potential post-operative ileus. -Monitor for bowel movements. -Replenish electrolytes accordingly. Hypokalemia possibly secondary to vomiting episodes/gastric output. -Consults input appreciated. -Continue frequent ambulation. -Continue current treatment. Objective - Vital Signs/Intake and Output Vital Signs (last 24 hours): Temp Pulse Resp BP Pulse Ox 98 F 67 18 123/77 100 07/02/18 23:58 07/02/18 23:58 07/02/18 23:58 07/02/18 23:58 07/02/18 23:58 - Medications Medications: Current Medications Alprazolam (Xanax) 0.5 mg PO PRN PRN PRN Reason: Anxiety Last Admin: 07/02/18 08:59 Dose: 0.5 mg Amlodipine Besylate (Norvasc) 5 mg PO DAILY [facility] Last Admin: 07/02/18 08:39 Dose: 5 mg Atorvastatin Calcium (Lipitor) 10 mg PO DAILY [facility] Last Admin: 07/02/18 08:38 Dose: 10 mg Carbamazepine (Tegretol-Xr) 200 mg PO DAILY [facility] Last Admin: 07/02/18 08:40 Dose: 200 mg Clotrimazole (Lotrimin 1% Cream) 1 applic TOP BID [facility] Last Admin: 07/02/18 16:32 Dose: 1 applic Enoxaparin Sodium (Lovenox) 30 mg SC DAILY [facility]; Protocol Last Admin: 07/02/18 08:38 Dose: 30 mg Famotidine (Pepcid) 20 mg IV Q12 [facility] Last Admin: 07/02/18 21:50 Dose: 20 mg Famotidine (Pepcid) 20 mg PO DAILY [facility] Last Admin: 07/02/18 08:40 Dose: 20 mg Piperacillin Sod/Tazobactam (Sod 3.375 gm/ Sodium Chloride) 100 mls @ 100 mls/hr IVPB Q6 [facility]; Protocol Last Admin: 07/02/18 16:00 Dose: 100 mls/hr Potassium Phosphate 15 mmole/ (Dextrose) 255 mls @ 84 mls/hr IV .Q3H3M ONE Stop: 07/03/18 00:32 Ketorolac Tromethamine (Toradol) 30 mg IVP Q6 PRN PRN Reason: Pain, moderate (4-7) Last Admin: 06/30/18 20:53 Dose: 30 mg Meclizine HCl (Antivert) 25 mg PO DAILY [facility] Last Admin: 07/02/18 08:37 Dose: Not Given Ondansetron HCl (Zofran Inj) 4 mg IVP Q4 PRN PRN Reason: Nausea/Vomiting Last Admin: 07/02/18 21:51 Dose: 4 mg Phenol/Menthol (Phenaseptic 1.4% Throat [place]) 1 spry MT Q2 PRN PRN Reason: Sore Throat Last Admin: 06/30/18 10:06 Dose: 1 spr Simethicone (Mylicon Liq) 40 mg PO Q6 [facility] Last Admin: 07/03/18 00:05 Dose: 40 mg Zolpidem Tartrate (Ambien) 5 mg PO HS PRN PRN Reason: Insomnia Last Admin: 07/01/18 23:43 Dose: 5 mg - Labs Labs: 07/02/18 06:05 07/02/18 19:40 PT 11.6 Seconds (9.8-13.1) 06/25/18 00:40 INR 1.0 06/25/18 00:40 APTT 25.9 Seconds (25.6-37.1) 06/25/18 00:40 Assessment and Plan (1) Small bowel obstruction, partial Status: Acute
[2018-07-03] MEDS: Piperacillin/Tazobact 3.375 GM in Sodium Chloride 0.9% 100 ML IVPB SCH ×4 (05:13→21:08)
[2018-07-03 06:04] LABS: HEMOGLOBIN 8.9 g/dL (12.0-16.0); MEAN CELL VOLUME 86.7 fl (81.0-99.0); MEAN CORPUSCULAR HEMOGLOBIN 28.7 pg (27.0-31.0); MEAN CORPUSCULAR HGB CONC 33.1 g/dL (33.0-37.0); RBC 3.11 Mil/uL (3.80-5.20); RED CELL DISTRIBUTION WIDTH 13.2 % (11.5-14.5); WHITE BLOOD COUNT 9.8 K/uL (4.8-10.8)
[2018-07-03 06:24] LABS: ALB/GLOB RATIO 1.1 (1.0-2.1); ALBUMIN 3.1 g/dL (3.5-5.0); ALT/SGPT 40 U/L (9-52); AST/SGOT 32 U/L (14-36); BLOOD UREA NITROGEN 9 mg/dl (7-17); CALCIUM 7.8 mg/dL (8.4-10.2); GFR NON-AFRICAN AMERICAN > 60
--- NOTE | 2018-07-03 07:28 | CP.PCM.PN ---
<Trip Arshad - Last Filed: 07/03/18 10:09> Subjective - Date & Time of Evaluation Date of Evaluation: 07/03/18 Time of Evaluation: 07:26 - Subjective Subjective: Surgery Progress Note- Dr. Bower Patient seen and examined at bedside. Serous drainage from inferior portion of midline incision. Dressing Changed. states some nausea, no vomiting since yesterday AM. Denies flatus or BM at this time. + OOB and ambulating Objective - Vital Signs/Intake and Output Vital Signs (last 24 hours): Temp Pulse Resp BP Pulse Ox 98 F 67 18 123/77 100 07/02/18 23:58 07/02/18 23:58 07/02/18 23:58 07/02/18 23:58 07/02/18 23:58 Intake and Output: 07/03/18 07/03/18 06:59 18:59 Output Total 35 Balance -35 - Medications Medications: Current Medications Alprazolam (Xanax) 0.5 mg PO PRN PRN PRN Reason: Anxiety Last Admin: 07/03/18 01:05 Dose: 0.5 mg Amlodipine Besylate (Norvasc) 5 mg PO DAILY [facility] Last Admin: 07/02/18 08:39 Dose: 5 mg Atorvastatin Calcium (Lipitor) 10 mg PO DAILY [facility] Last Admin: 07/02/18 08:38 Dose: 10 mg Carbamazepine (Tegretol-Xr) 200 mg PO DAILY [facility] Last Admin: 07/02/18 08:40 Dose: 200 mg Clotrimazole (Lotrimin 1% Cream) 1 applic TOP BID [facility] Last Admin: 07/02/18 16:32 Dose: 1 applic Enoxaparin Sodium (Lovenox) 30 mg SC DAILY [facility]; Protocol Last Admin: 07/02/18 08:38 Dose: 30 mg Famotidine (Pepcid) 20 mg IV Q12 [facility] Last Admin: 07/02/18 21:50 Dose: 20 mg Famotidine (Pepcid) 20 mg PO DAILY [facility] Last Admin: 07/02/18 08:40 Dose: 20 mg Piperacillin Sod/Tazobactam (Sod 3.375 gm/ Sodium Chloride) 100 mls @ 100 mls/hr IVPB Q6 [facility]; Protocol Last Admin: 07/03/18 05:13 Dose: 100 mls/hr Ketorolac Tromethamine (Toradol) 30 mg IVP Q6 PRN PRN Reason: Pain, moderate (4-7) Last Admin: 07/03/18 01:05 Dose: 30 mg Meclizine HCl (Antivert) 25 mg PO DAILY [facility] Last Admin: 07/02/18 08:37 Dose: Not Given Ondansetron HCl (Zofran Inj) 4 mg IVP Q4 PRN PRN Reason: Nausea/Vomiting Last Admin: 07/02/18 21:51 Dose: 4 mg Phenol/Menthol (Phenaseptic 1.4% Throat [place]) 1 spry MT Q2 PRN PRN Reason: Sore Throat Last Admin: 06/30/18 10:06 Dose: 1 spr Simethicone (Mylicon Liq) 40 mg PO Q6 [facility] Last Admin: 07/03/18 04:59 Dose: Not Given Zolpidem Tartrate (Ambien) 5 mg PO HS PRN PRN Reason: Insomnia Last Admin: 07/01/18 23:43 Dose: 5 mg - Labs Labs: 07/03/18 05:55 07/03/18 05:55 PT 11.6 Seconds (9.8-13.1) 06/25/18 00:40 INR 1.0 06/25/18 00:40 APTT 25.9 Seconds (25.6-37.1) 06/25/18 00:40 - Constitutional Appears: Non-toxic, No Acute Distress - Head Exam Head Exam: ATRAUMATIC - Eye Exam Eye Exam: EOMI. absent: Scleral icterus - ENT Exam ENT Exam: Mucous Membranes Moist - Respiratory Exam Respiratory Exam: Respiratory Distress, NORMAL BREATHING PATTERN. absent: Accessory Muscle Use, Chest Wall Tenderness - Cardiovascular Exam Cardiovascular Exam: REGULAR RHYTHM. absent: Bradycardia, Tachycardia - GI/Abdominal Exam GI & Abdominal Exam: Soft, Tenderness (around midline incision). absent: Distended, Firm, Guarding, Rigid Additional comments: serous drainage from inferior portion of incision - Extremities Exam Extremities Exam: absent: Calf Tenderness - Neurological Exam Neurological Exam: Alert, Awake, Oriented x3 Assessment and Plan - Assessment and Plan (Free Text) Assessment: 68F POD#6 s/p diagnostic laparoscopy, extensive laparoscopic enterolysis, exploratory laparotomy with small bowel resection and primary anastomosis Plan: - Pain control PRN - IV abx per ID recs - Incentive spirometer - monitor bowel function - OOB to chair and ambulation - Replete electrolytes PRN - obtain MID vs PICC access - Further recs per Dr. Sheriff PGY2 <Fortunato Vallejo - Last Filed: 07/05/18 14:03> Objective - Vital Signs/Intake and Output Vital Signs (last 24 hours): Temp Pulse Resp BP Pulse Ox 97.7 F 66 20 114/64 96 07/05/18 08:19 07/05/18 10:49 07/05/18 08:19 07/05/18 10:49 07/05/18 08:19 Intake and Output: 07/05/18 07/05/18 06:59 18:59 Intake Total 1400 Output Total 70 Balance 1330 - Medications Medications: Current Medications Alprazolam (Xanax) 0.5 mg PO PRN PRN PRN Reason: Anxiety Last Admin: 07/04/18 22:16 Dose: 0.5 mg Amlodipine Besylate (Norvasc) 5 mg PO DAILY [facility] Last Admin: 07/05/18 10:49 Dose: 5 mg Atorvastatin Calcium (Lipitor) 10 mg PO DAILY [facility] Last Admin: 07/05/18 10:49 Dose: 10 mg Carbamazepine (Tegretol-Xr) 200 mg PO DAILY [facility] Last Admin: 07/05/18 10:48 Dose: 200 mg Clotrimazole (Lotrimin 1% Cream) 1 applic TOP BID [facility] Last Admin: 07/05/18 10:50 Dose: Not Given Enoxaparin Sodium (Lovenox) 30 mg SC DAILY [facility]; Protocol Last Admin: 07/05/18 10:50 Dose: 30 mg Famotidine (Pepcid) 20 mg IV Q12 [facility] Last Admin: 07/05/18 11:37 Dose: 20 mg Ketorolac Tromethamine (Toradol) 30 mg IVP Q6 PRN PRN Reason: Pain, moderate (4-7) Last Admin: 07/04/18 02:17 Dose: 30 mg Meclizine HCl (Antivert) 25 mg PO DAILY [facility] Last Admin: 07/05/18 10:49 Dose: 25 mg Ondansetron HCl (Zofran Inj) 4 mg IVP Q4 PRN PRN Reason: Nausea/Vomiting Last Admin: 07/05/18 11:35 Dose: 4 mg Phenol/Menthol (Phenaseptic 1.4% Throat [place]) 1 spry MT Q2 PRN PRN Reason: Sore Throat Last Admin: 06/30/18 10:06 Dose: 1 spr Simethicone (Mylicon Liq) 40 mg PO Q6 [facility] Last Admin: 07/05/18 03:32 Dose: 40 mg Sodium Phosphate (Fleet Enema) 135 ml [place] DAILY [facility] Last Admin: 07/04/18 11:09 Dose: 135 ml Zolpidem Tartrate (Ambien) 5 mg PO HS PRN PRN Reason: Insomnia Last Admin: 07/01/18 23:43 Dose: 5 mg - Labs Labs: 07/05/18 05:30 07/05/18 05:30 PT 11.6 Seconds (9.8-13.1) 06/25/18 00:40 INR 1.0 06/25/18 00:40 APTT 25.9 Seconds (25.6-37.1) 06/25/18 00:40 Assessment and Plan - Assessment and Plan (Free Text) Plan: All medical record entries made by the resident were at my direction. I have reviewed the chart and agree that the record accurately reflects my personal performance of the history, physical exam, and medical decision making.
[2018-07-03] MEDS ORDERED: Magnesium Sulfate 2 gm/50 ml 2 GM/50 ML BAG IVPB ONE (07:45)
[2018-07-03] MEDS ORDERED: Potassium Chloride 20 mEq ER Tab PO ONE (10:00)
[2018-07-03] MEDS: Potassium CL 10mEq/100ml 100 ML IVPB SCH ×2 (10:31→14:48)
--- NOTE | 2018-07-03 11:41 | US ---
Date of service: 07/02/2018 PROCEDURE: Bilateral lower extremity venous duplex Doppler. HISTORY: dr trinidad COMPARISON: None available. TECHNIQUE: Bilateral common femoral, superficial femoral, popliteal and posterior tibial veins were evaluated. Flow was assessed with color Doppler, compressibility, assessment of phasic flow and augmentation response. FINDINGS: COMMON FEMORAL VEIN: Right CFV: Unremarkable. Left CFV: Unremarkable. SUPERFICIAL FEMORAL VEIN: Right SFV: Unremarkable. Left SFV: Unremarkable. POPLITEAL VEIN: Right Popliteal: Unremarkable. Left Popliteal: Unremarkable. POSTERIOR TIBIAL VEIN: Right PTV: Unremarkable. Left PTV: Unremarkable. OTHER FINDINGS: None. IMPRESSION: No evidence of deep venous thrombosis.
[2018-07-03] MEDS ORDERED: Lidocaine Hydrochloride 1% 10 ML ONE (12:15)
--- NOTE | 2018-07-03 12:47 | PCM.SURG1 ---
Surgeon's Initial Post Op Note - Surgeon's Notes Surgeon: Dann Quiros MD Secondary Connector Armature: NONE Type of Anesthesia: Local Pre-Operative Diagnosis: Poor venous access Operative Findings: US shows a patent right basilic vein Post-Operative Diagnosis: Poor venous access Operation Performed: Single lumen picc placement right arm. Specimen/Specimens Removed: NONE Estimated Blood Loss: EBL {In ML}: 2 Blood Products Given: N/A Drains Used: No Drains Post-Op Condition: Fair Date of Surgery/Procedure: 07/03/18 Time of Surgery/Procedure: 12:45
[2018-07-03] MEDS: Enoxaparin 30 mg Syringe SC SCH (13:20)
--- NOTE | 2018-07-03 13:32 | VASCULAR ---
PROCEDURE: Date of procedure: 07/03/2018 Procedure: 1. Placement of a right arm PICC with ultrasound and fluoroscopic guidance, CPT 07545 2. PICC tip confirmation with spot radiograph and is in the superior vena cava Medications: 1 percent lidocaine Total Fluoro time: 5.2 Seconds Radiation: 0.63 MGy EBL: 2 cc HISTORY: Infection requiring long-term IV antibiotics TECHNIQUE: Following informed consent and procedure time-out, the patient was placed supine on the interventional table and the right arm prepped and draped in the usual sterile fashion. Ultrasound showed a patent and compressible right basilic vein. After the skin was anesthetized with lidocaine, the basilic vein was accessed with micro micropuncture technique using ultrasound guidance. A guidewire was then advanced under fluoroscopic guidance into the superior vena cava. An image documenting ultrasound guidance for vascular access was permanently saved. The length of the single-lumen 4 Serbian PICC was trimmed to 35 centimeters and advanced through a peel-away sheath. The PICC was position with tip of PICC confirm a spot radiograph the superior vena cava. The PICC was secured to the patient's skin. The PICC was flushed. A biopatch and sterile dressing was applied. IMPRESSION: Placement of a single-lumen 4 Serbian PICC trimmed to 35 centimeters via right basilic vein. The tip of the PICC is confirmed with spot radiograph and is in the superior vena cava.
--- NOTE | 2018-07-03 17:38 | CP.PCM.PN ---
Subjective - Date & Time of Evaluation Date of Evaluation: 07/03/18 Time of Evaluation: 09:00 - Subjective Subjective: s/p PICC line placement refusing NGT still NPO afebrile NAD Objective - Vital Signs/Intake and Output Vital Signs (last 24 hours): Temp Pulse Resp BP Pulse Ox 98 F 72 20 117/78 96 07/03/18 16:30 07/03/18 16:30 07/03/18 16:30 07/03/18 16:30 07/03/18 16:30 Intake and Output: 07/03/18 07/03/18 06:59 18:59 Output Total 35 Balance -35 - Medications Medications: Current Medications Alprazolam (Xanax) 0.5 mg PO PRN PRN PRN Reason: Anxiety Last Admin: 07/03/18 01:05 Dose: 0.5 mg Amlodipine Besylate (Norvasc) 5 mg PO DAILY [facility] Last Admin: 07/03/18 10:38 Dose: 5 mg Atorvastatin Calcium (Lipitor) 10 mg PO DAILY [facility] Last Admin: 07/03/18 10:39 Dose: 10 mg Carbamazepine (Tegretol-Xr) 200 mg PO DAILY [facility] Last Admin: 07/03/18 10:38 Dose: 200 mg Clotrimazole (Lotrimin 1% Cream) 1 applic TOP BID [facility] Last Admin: 07/03/18 16:12 Dose: 1 applic Enoxaparin Sodium (Lovenox) 30 mg [place] DAILY [facility]; Protocol Last Admin: 07/03/18 13:20 Dose: 30 mg Famotidine (Pepcid) 20 mg IV Q12 [facility] Last Admin: 07/03/18 12:29 Dose: Not Given Piperacillin Sod/Tazobactam (Sod 3.375 gm/ Sodium Chloride) 100 mls @ 100 mls/hr IVPB Q6 [facility]; Protocol Last Admin: 07/03/18 05:13 Dose: 100 mls/hr Ketorolac Tromethamine (Toradol) 30 mg IVP Q6 PRN PRN Reason: Pain, moderate (4-7) Last Admin: 07/03/18 01:05 Dose: 30 mg Meclizine HCl (Antivert) 25 mg PO DAILY [facility] Last Admin: 07/03/18 10:39 Dose: 25 mg Metoclopramide HCl (Reglan) 10 mg IVP Q6 [facility] Stop: 07/04/18 22:01 Last Admin: 07/03/18 16:20 Dose: 10 mg Ondansetron HCl (Zofran Inj) 4 mg IVP Q4 PRN PRN Reason: Nausea/Vomiting Last Admin: 07/03/18 14:53 Dose: 4 mg Phenol/Menthol (Phenaseptic 1.4% Throat [place]) 1 spry MT Q2 PRN PRN Reason: Sore Throat Last Admin: 06/30/18 10:06 Dose: 1 spr Simethicone (Mylicon Liq) 40 mg PO Q6 [facility] Last Admin: 07/03/18 16:13 Dose: 40 mg Sodium Phosphate (Fleet Enema) 135 ml [place] DAILY [facility] Last Admin: 07/03/18 13:32 Dose: 135 ml Zolpidem Tartrate (Ambien) 5 mg PO HS PRN PRN Reason: Insomnia Last Admin: 07/01/18 23:43 Dose: 5 mg - Labs Labs: 07/03/18 05:55 07/03/18 05:55 PT 11.6 Seconds (9.8-13.1) 06/25/18 00:40 INR 1.0 06/25/18 00:40 APTT 25.9 Seconds (25.6-37.1) 06/25/18 00:40 - Constitutional Appears: Non-toxic, No Acute Distress, Chronically Ill - Head Exam Head Exam: ATRAUMATIC, NORMAL INSPECTION, NORMOCEPHALIC - Eye Exam Eye Exam: EOMI, Normal appearance, PERRL Pupil Exam: NORMAL ACCOMODATION, PERRL - ENT Exam ENT Exam: Mucous Membranes Moist, Normal Exam - Neck Exam Neck Exam: Full ROM, Normal Inspection. absent: Lymphadenopathy - Respiratory Exam Respiratory Exam: Clear to Ausculation Bilateral, NORMAL BREATHING PATTERN - Cardiovascular Exam Cardiovascular Exam: REGULAR RHYTHM, +S1, +S2. absent: Murmur - GI/Abdominal Exam GI & Abdominal Exam: Soft, Normal Bowel Sounds. absent: Tenderness - Rectal Exam Rectal Exam: Deferred - Extremities Exam Extremities Exam: Full ROM, Normal Capillary Refill, Normal Inspection. absent: Joint Swelling, Pedal Edema - Back Exam Back Exam: NORMAL INSPECTION - Neurological Exam Neurological Exam: Alert, Awake, CN II-XII Intact, Normal Gait, Oriented x3 - Psychiatric Exam Psychiatric exam: Normal Affect, Normal Mood - Skin Skin Exam: Dry, Intact, Normal Color, Warm Assessment and Plan (1) Asthma Status: Acute (2) Small bowel obstruction Status: Acute (3) Small bowel obstruction, partial Status: Acute (4) Small bowel obstruction, partial Status: Acute (5) Intermittent small bowel obstruction Status: Acute - Assessment and Plan (Free Text) Assessment: refusing NGT post op ileus - possibly due to anesthesia s/p SBO / lysis of adhesion cont rx
[2018-07-04] MEDS: Piperacillin/Tazobact 3.375 GM in Sodium Chloride 0.9% 100 ML IVPB SCH ×4 (04:12→21:59)
[2018-07-04] MEDS: Simethicone 40 mg/0.6 ml Liquid (30 ml) PO SCH ×4 (04:18→21:58)
[2018-07-04 06:13] LABS: HEMOGLOBIN 8.5 g/dL (12.0-16.0); MEAN CELL VOLUME 87.6 fl (81.0-99.0); MEAN CORPUSCULAR HEMOGLOBIN 28.9 pg (27.0-31.0); RBC 2.93 Mil/uL (3.80-5.20); RED CELL DISTRIBUTION WIDTH 13.5 % (11.5-14.5); WHITE BLOOD COUNT 8.8 K/uL (4.8-10.8)
[2018-07-04 06:40] LABS: ALB/GLOB RATIO 1.1 (1.0-2.1); ALBUMIN 2.9 g/dL (3.5-5.0); ALT/SGPT 43 U/L (9-52); AST/SGOT 51 U/L (14-36); BLOOD UREA NITROGEN 12 mg/dl (7-17); CALCIUM 7.7 mg/dL (8.4-10.2); GFR NON-AFRICAN AMERICAN > 60
[2018-07-04] MEDS ORDERED: Potassium Chloride 20 mEq ER Tab PO ONE (07:52)
[2018-07-04] MEDS: Enoxaparin 30 mg Syringe SC SCH (08:47)
--- NOTE | 2018-07-04 09:21 | CP.PCM.PN ---
<Trip Arshad - Last Filed: 07/04/18 09:24> Subjective - Date & Time of Evaluation Date of Evaluation: 07/04/18 Time of Evaluation: 09:17 - Subjective Subjective: Surgery Progress Note- Dr. Bower Patient seen and examined at bedside. Complaining of crampy lower abdominal pain that waxes and wanes. Attempted fleets enema yesterday with minimal relief. Midline Dressing changed at bedside w/ inferior seropurulent fluid. Denies fevers, chills, chest pain, shortness of breath Objective - Vital Signs/Intake and Output Vital Signs (last 24 hours): Temp Pulse Resp BP Pulse Ox 97.6 F 66 19 116/67 100 07/04/18 07:43 07/04/18 08:48 07/04/18 07:43 07/04/18 08:48 07/04/18 07:43 Intake and Output: 07/04/18 07/04/18 06:59 18:59 Output Total 110 Balance -110 - Medications Medications: Current Medications Alprazolam (Xanax) 0.5 mg PO PRN PRN PRN Reason: Anxiety Last Admin: 07/03/18 21:20 Dose: 0.5 mg Amlodipine Besylate (Norvasc) 5 mg PO DAILY [facility] Last Admin: 07/04/18 08:48 Dose: 5 mg Atorvastatin Calcium (Lipitor) 10 mg PO DAILY [facility] Last Admin: 07/04/18 08:48 Dose: 10 mg Carbamazepine (Tegretol-Xr) 200 mg PO DAILY [facility] Last Admin: 07/04/18 08:48 Dose: 200 mg Clotrimazole (Lotrimin 1% Cream) 1 applic TOP BID [facility] Last Admin: 07/04/18 08:49 Dose: 1 applic Enoxaparin Sodium (Lovenox) 30 mg [place] DAILY [facility]; Protocol Last Admin: 07/04/18 08:47 Dose: 30 mg Famotidine (Pepcid) 20 mg IV Q12 [facility] Last Admin: 07/03/18 21:08 Dose: 20 mg Piperacillin Sod/Tazobactam (Sod 3.375 gm/ Sodium Chloride) 100 mls @ 100 mls/hr IVPB Q6 [facility]; Protocol Last Admin: 07/04/18 04:12 Dose: 100 mls/hr Potassium Chloride (Potassium Cl 10meq/50ml Sterile [place]) 50 mls @ 50 mls/hr IVPB Q1 [facility] Stop: 07/04/18 10:59 Ketorolac Tromethamine (Toradol) 30 mg IVP Q6 PRN PRN Reason: Pain, moderate (4-7) Last Admin: 07/04/18 02:17 Dose: 30 mg Meclizine HCl (Antivert) 25 mg PO DAILY [facility] Last Admin: 07/04/18 08:49 Dose: 25 mg Metoclopramide HCl (Reglan) 10 mg IVP Q6 [facility] Stop: 07/04/18 22:01 Last Admin: 07/04/18 04:18 Dose: 10 mg Ondansetron HCl (Zofran Inj) 4 mg IVP Q4 PRN PRN Reason: Nausea/Vomiting Last Admin: 07/04/18 02:17 Dose: 4 mg Phenol/Menthol (Phenaseptic 1.4% Throat [place]) 1 spry MT Q2 PRN PRN Reason: Sore Throat Last Admin: 06/30/18 10:06 Dose: 1 spr Simethicone (Mylicon Liq) 40 mg PO Q6 [facility] Last Admin: 07/04/18 04:18 Dose: 40 mg Sodium Phosphate (Fleet Enema) 135 ml [place] DAILY [facility] Last Admin: 07/03/18 13:32 Dose: 135 ml Zolpidem Tartrate (Ambien) 5 mg PO HS PRN PRN Reason: Insomnia Last Admin: 07/01/18 23:43 Dose: 5 mg - Labs Labs: 07/04/18 06:00 07/04/18 06:00 PT 11.6 Seconds (9.8-13.1) 06/25/18 00:40 INR 1.0 06/25/18 00:40 APTT 25.9 Seconds (25.6-37.1) 06/25/18 00:40 - Constitutional Appears: Non-toxic, No Acute Distress - Head Exam Head Exam: ATRAUMATIC - Eye Exam Eye Exam: EOMI. absent: Scleral icterus - ENT Exam ENT Exam: Mucous Membranes Moist - Respiratory Exam Respiratory Exam: NORMAL BREATHING PATTERN. absent: Accessory Muscle Use, Respiratory Distress - Cardiovascular Exam Cardiovascular Exam: REGULAR RHYTHM. absent: Bradycardia, Tachycardia - GI/Abdominal Exam GI & Abdominal Exam: Distended, Soft, Tenderness (some tenderness around incision). absent: Firm, Guarding, Rigid - Neurological Exam Neurological Exam: Alert, Awake, Oriented x3 - Psychiatric Exam Psychiatric exam: Normal Affect - Skin Skin Exam: Intact, Warm Assessment and Plan - Assessment and Plan (Free Text) Assessment: 68F POD#7 s/p diagnostic laparoscopy, extensive laparoscopic enterolysis, exploratory laparotomy with small bowel resection and primary anastomosis Plan: - [facility] Reglan- zofran PRN - Pain control PRN - IV abx per ID recs - Incentive spirometer - monitor bowel function - OOB to chair and ambulation - Replete electrolytes PRN - once lytes are repleted; will consider getting UGIS w/ small bowel follow through - obtain MID vs PICC access - Further recs per Dr. Sheriff PGY2 <Fortunato Vallejo - Last Filed: 07/05/18 14:17> Objective - Vital Signs/Intake and Output Vital Signs (last 24 hours): Temp Pulse Resp BP Pulse Ox 97.7 F 66 20 114/64 96 07/05/18 08:19 07/05/18 10:49 07/05/18 08:19 07/05/18 10:49 07/05/18 08:19 Intake and Output: 07/05/18 07/05/18 06:59 18:59 Intake Total 1400 Output Total 70 Balance 1330 - Medications Medications: Current Medications Alprazolam (Xanax) 0.5 mg PO PRN PRN PRN Reason: Anxiety Last Admin: 07/04/18 22:16 Dose: 0.5 mg Amlodipine Besylate (Norvasc) 5 mg PO DAILY [facility] Last Admin: 07/05/18 10:49 Dose: 5 mg Atorvastatin Calcium (Lipitor) 10 mg PO DAILY [facility] Last Admin: 07/05/18 10:49 Dose: 10 mg Carbamazepine (Tegretol-Xr) 200 mg PO DAILY [facility] Last Admin: 07/05/18 10:48 Dose: 200 mg Clotrimazole (Lotrimin 1% Cream) 1 applic TOP BID [facility] Last Admin: 07/05/18 10:50 Dose: Not Given Enoxaparin Sodium (Lovenox) 30 mg [place] DAILY [facility]; Protocol Last Admin: 07/05/18 10:50 Dose: 30 mg Famotidine (Pepcid) 20 mg IV Q12 [facility] Last Admin: 07/05/18 11:37 Dose: 20 mg Ketorolac Tromethamine (Toradol) 30 mg IVP Q6 PRN PRN Reason: Pain, moderate (4-7) Last Admin: 07/04/18 02:17 Dose: 30 mg Meclizine HCl (Antivert) 25 mg PO DAILY [facility] Last Admin: 07/05/18 10:49 Dose: 25 mg Ondansetron HCl (Zofran Inj) 4 mg IVP Q4 PRN PRN Reason: Nausea/Vomiting Last Admin: 07/05/18 11:35 Dose: 4 mg Phenol/Menthol (Phenaseptic 1.4% Throat [place]) 1 spry MT Q2 PRN PRN Reason: Sore Throat Last Admin: 06/30/18 10:06 Dose: 1 spr Simethicone (Mylicon Liq) 40 mg PO Q6 [facility] Last Admin: 07/05/18 03:32 Dose: 40 mg Sodium Phosphate (Fleet Enema) 135 ml [place] DAILY [facility] Last Admin: 07/04/18 11:09 Dose: 135 ml Zolpidem Tartrate (Ambien) 5 mg PO HS PRN PRN Reason: Insomnia Last Admin: 07/01/18 23:43 Dose: 5 mg - Labs Labs: 07/05/18 05:30 07/05/18 05:30 PT 11.6 Seconds (9.8-13.1) 06/25/18 00:40 INR 1.0 06/25/18 00:40 APTT 25.9 Seconds (25.6-37.1) 06/25/18 00:40 Assessment and Plan - Assessment and Plan (Free Text) Plan: All medical record entries made by the resident were at my direction. I have reviewed the chart and agree that the record accurately reflects my personal performance of the history, physical exam, and medical decision making.
[2018-07-04] MEDS: Potassium CL 10 MEQ/50 ML 50 ML IVPB SCH ×4 (11:11→12:36)
--- NOTE | 2018-07-04 12:51 | CP.PCM.PN ---
Subjective - Date & Time of Evaluation Date of Evaluation: 07/04/18 Time of Evaluation: 08:00 - Subjective Subjective: no fever or leukocytosiis still not passing gas and fleets enema wasnt helpful Objective - Vital Signs/Intake and Output Vital Signs (last 24 hours): Temp Pulse Resp BP Pulse Ox 97.6 F 66 19 116/67 100 07/04/18 07:43 07/04/18 08:48 07/04/18 07:43 07/04/18 08:48 07/04/18 07:43 Intake and Output: 07/04/18 07/04/18 06:59 18:59 Output Total 110 Balance -110 - Medications Medications: Current Medications Alprazolam (Xanax) 0.5 mg PO PRN PRN PRN Reason: Anxiety Last Admin: 07/03/18 21:20 Dose: 0.5 mg Amlodipine Besylate (Norvasc) 5 mg PO DAILY [facility] Last Admin: 07/04/18 08:48 Dose: 5 mg Atorvastatin Calcium (Lipitor) 10 mg PO DAILY [facility] Last Admin: 07/04/18 08:48 Dose: 10 mg Carbamazepine (Tegretol-Xr) 200 mg PO DAILY [facility] Last Admin: 07/04/18 08:48 Dose: 200 mg Clotrimazole (Lotrimin 1% Cream) 1 applic TOP BID [facility] Last Admin: 07/04/18 08:49 Dose: 1 applic Enoxaparin Sodium (Lovenox) 30 mg [place] DAILY [facility]; Protocol Last Admin: 07/04/18 08:47 Dose: 30 mg Famotidine (Pepcid) 20 mg IV Q12 [facility] Last Admin: 07/04/18 11:10 Dose: 20 mg Piperacillin Sod/Tazobactam (Sod 3.375 gm/ Sodium Chloride) 100 mls @ 100 mls/hr IVPB Q6 [facility]; Protocol Last Admin: 07/04/18 11:14 Dose: 100 mls/hr Potassium Chloride/Dextrose/Sod Cl (Potassium Chl 40 Meq In D5-1/2ns) 1,000 mls @ 100 mls/hr IV .Q10H [facility] Stop: 07/05/18 09:27 Ketorolac Tromethamine (Toradol) 30 mg IVP Q6 PRN PRN Reason: Pain, moderate (4-7) Last Admin: 07/04/18 02:17 Dose: 30 mg Meclizine HCl (Antivert) 25 mg PO DAILY [facility] Last Admin: 07/04/18 08:49 Dose: 25 mg Metoclopramide HCl (Reglan) 10 mg IVP Q6 [facility] Stop: 07/04/18 22:01 Last Admin: 07/04/18 11:17 Dose: 10 mg Ondansetron HCl (Zofran Inj) 4 mg IVP Q4 PRN PRN Reason: Nausea/Vomiting Last Admin: 07/04/18 02:17 Dose: 4 mg Phenol/Menthol (Phenaseptic 1.4% Throat [place]) 1 spry MT Q2 PRN PRN Reason: Sore Throat Last Admin: 06/30/18 10:06 Dose: 1 spr Simethicone (Mylicon Liq) 40 mg PO Q6 [facility] Last Admin: 07/04/18 11:17 Dose: 40 mg Sodium Phosphate (Fleet Enema) 135 ml [place] DAILY [facility] Last Admin: 07/04/18 11:09 Dose: 135 ml Zolpidem Tartrate (Ambien) 5 mg PO HS PRN PRN Reason: Insomnia Last Admin: 07/01/18 23:43 Dose: 5 mg - Labs Labs: 07/04/18 06:00 07/04/18 06:00 PT 11.6 Seconds (9.8-13.1) 06/25/18 00:40 INR 1.0 06/25/18 00:40 APTT 25.9 Seconds (25.6-37.1) 06/25/18 00:40 - Constitutional Appears: Non-toxic, No Acute Distress, Chronically Ill - Head Exam Head Exam: NORMOCEPHALIC - Eye Exam Eye Exam: absent: Scleral icterus - ENT Exam ENT Exam: Mucous Membranes Dry - Neck Exam Neck Exam: absent: Lymphadenopathy - Respiratory Exam Respiratory Exam: Decreased Breath Sounds - Cardiovascular Exam Cardiovascular Exam: REGULAR RHYTHM - GI/Abdominal Exam GI & Abdominal Exam: Distended, Soft Additional comments: wound noted min drainage no kwadwo pus drain in place - Rectal Exam Rectal Exam: Deferred - Exam Exam: NORMAL INSPECTION - Extremities Exam Extremities Exam: absent: Pedal Edema - Back Exam Back Exam: absent: CVA tenderness (L), CVA tenderness (R) - Neurological Exam Neurological Exam: Alert, Awake, CN II-XII Intact, Oriented x3 Neuro motor strength exam: Left Upper Extremity: 5, Right Upper Extremity: 5, Left Lower Extremity: 5, Right Lower Extremity: 5 - Psychiatric Exam Psychiatric exam: Depressed - Skin Skin Exam: Dry Assessment and Plan (1) Asthma Status: Acute (2) Small bowel obstruction Status: Acute (3) Small bowel obstruction, partial Status: Acute (4) Small bowel obstruction, partial Status: Acute (5) Intermittent small bowel obstruction Status: Acute - Assessment and Plan (Free Text) Assessment: cont supportive care for gastrograffin swallow
--- NOTE | 2018-07-04 13:53 | CP.PCM.PN ---
Subjective - Date & Time of Evaluation Date of Evaluation: 07/03/18 Time of Evaluation: 11:00 - Subjective Subjective: patient seen and examined at bedside. Interim events noted feels bloated, no BM yet, pain controlled, has difficulty passing gas spoke with family at bedside. denies cp/sob/fever/chills. available diagnostic data reviewed Review of Systems All systems: reviewed and no additional remarkable complaints except mentioned above Objective Vital Signs Stable - Constitutional Appears: Non-toxic, No Acute Distress Head Exam: NORMAL INSPECTION Eye Exam: Normal appearance Respiratory Exam: NORMAL BREATHING PATTERN Cardiovascular Exam: +S1, +S2 GI & Abdominal Exam: drains in place Neurological Exam: Alert, Awake Psychiatric exam: Normal Affect, Normal Mood Skin Exam: Normal Color, Warm Assessment and Plan monitor vitals monitor labs Cont meds Cont tx consultants appreciated input PICC line today due to poor IV access NPO replace potassium rest of plan as ordered Assessment and Plan (1) Small bowel obstruction Status: Acute (2) Hypokalemia Status: Acute
--- NOTE | 2018-07-04 13:56 | CP.PCM.PN ---
Subjective - Date & Time of Evaluation Date of Evaluation: 07/04/18 Time of Evaluation: 11:00 - Subjective Subjective: patient seen and examined at bedside. Interim events noted states feels like gas is moving though still has difficulty passing gas, no BM yet, pain controlled spoke with family at bedside denies cp/sob/fever/chills. available diagnostic data reviewed Review of Systems All systems: reviewed and no additional remarkable complaints except mentioned above Objective Vital Signs Stable - Constitutional Appears: Non-toxic, No Acute Distress Head Exam: NORMAL INSPECTION Eye Exam: Normal appearance Respiratory Exam: NORMAL BREATHING PATTERN Cardiovascular Exam: +S1, +S2 GI & Abdominal Exam: abdominal binder in place Neurological Exam: Alert, Awake Psychiatric exam: Normal Affect, Normal Mood Skin Exam: Normal Color, Warm Assessment and Plan monitor vitals monitor labs Cont meds Cont tx consultants appreciated input NPO c/w OOB rest of plan as ordered Objective - Vital Signs/Intake and Output Vital Signs (last 24 hours): Temp Pulse Resp BP Pulse Ox 97.6 F 66 19 116/67 100 07/04/18 07:43 07/04/18 08:48 07/04/18 07:43 07/04/18 08:48 07/04/18 07:43 Intake and Output: 07/04/18 07/04/18 06:59 18:59 Output Total 110 Balance -110 - Medications Medications: Current Medications Alprazolam (Xanax) 0.5 mg PO PRN PRN PRN Reason: Anxiety Last Admin: 07/03/18 21:20 Dose: 0.5 mg Amlodipine Besylate (Norvasc) 5 mg PO DAILY [facility] Last Admin: 07/04/18 08:48 Dose: 5 mg Atorvastatin Calcium (Lipitor) 10 mg PO DAILY [facility] Last Admin: 07/04/18 08:48 Dose: 10 mg Carbamazepine (Tegretol-Xr) 200 mg PO DAILY [facility] Last Admin: 07/04/18 08:48 Dose: 200 mg Clotrimazole (Lotrimin 1% Cream) 1 applic TOP BID [facility] Last Admin: 07/04/18 08:49 Dose: 1 applic Enoxaparin Sodium (Lovenox) 30 mg [place] DAILY [facility]; Protocol Last Admin: 07/04/18 08:47 Dose: 30 mg Famotidine (Pepcid) 20 mg IV Q12 [facility] Last Admin: 07/04/18 11:10 Dose: 20 mg Piperacillin Sod/Tazobactam (Sod 3.375 gm/ Sodium Chloride) 100 mls @ 100 mls/hr IVPB Q6 [facility]; Protocol Last Admin: 07/04/18 11:14 Dose: 100 mls/hr Potassium Chloride/Dextrose/Sod Cl (Potassium Chl 40 Meq In D5-1/2ns) 1,000 mls @ 100 mls/hr IV .Q10H [facility] Stop: 07/05/18 09:27 Ketorolac Tromethamine (Toradol) 30 mg IVP Q6 PRN PRN Reason: Pain, moderate (4-7) Last Admin: 07/04/18 02:17 Dose: 30 mg Meclizine HCl (Antivert) 25 mg PO DAILY [facility] Last Admin: 07/04/18 08:49 Dose: 25 mg Metoclopramide HCl (Reglan) 10 mg IVP Q6 [facility] Stop: 07/04/18 22:01 Last Admin: 07/04/18 11:17 Dose: 10 mg Ondansetron HCl (Zofran Inj) 4 mg IVP Q4 PRN PRN Reason: Nausea/Vomiting Last Admin: 07/04/18 02:17 Dose: 4 mg Phenol/Menthol (Phenaseptic 1.4% Throat [place]) 1 spry MT Q2 PRN PRN Reason: Sore Throat Last Admin: 06/30/18 10:06 Dose: 1 spr Simethicone (Mylicon Liq) 40 mg PO Q6 [facility] Last Admin: 07/04/18 11:17 Dose: 40 mg Sodium Phosphate (Fleet Enema) 135 ml [place] DAILY [facility] Last Admin: 07/04/18 11:09 Dose: 135 ml Zolpidem Tartrate (Ambien) 5 mg PO HS PRN PRN Reason: Insomnia Last Admin: 07/01/18 23:43 Dose: 5 mg - Labs Labs: 07/04/18 06:00 07/04/18 06:00 PT 11.6 Seconds (9.8-13.1) 06/25/18 00:40 INR 1.0 06/25/18 00:40 APTT 25.9 Seconds (25.6-37.1) 06/25/18 00:40 Assessment and Plan (1) Small bowel obstruction Status: Acute (2) Hypokalemia Status: Resolved
[2018-07-04] MEDS: Potassium Chl 40 mEq in D5-1/2 1,000 ML IV SCH ×2 (15:47→22:00)
--- NOTE | 2018-07-05 00:26 | PQF ---
PROVIDER RESPONSE TEXT: Drop in hemoglobin and hematocrit is secondary to acute blood loss during surgical procedure. Per ope rative note, the estimated blood loss was 500 ml. DX: Acute posthemorrhagic anemia. REVIEWER QUERY TEXT: Clarification of Clinical Diagnostic Findings Physician?s Documentation Request This Form is Not a Permanent Document in the Medical Record Pt Name: HENRIK SAGASTUME MR #: [id number] Payor: MEDICARE PART A Unit/Bed: [place] [id number] Adm Date: 06/25/2018 2:25:00 AM Reviewer: Johanny Young Ext. Query Date: 07/03/2018 3:03:00 PM Clarification of Clinical Diagnostic Findings [id number] By submitting this query, we are merely seeking further clarification of documentation to accurately reflect all conditions that you are monitoring, evaluating, treating or that extend the hospitalizati on or utilize additional resources of care. Please utilize your independent clinical judgment when ad dressing the question(s) below. Dear Doctor José Miguel Norton, The patient?s Clinical Indicators include: --- Please clarify if there is an associated diagnosis to go along with the following Hematology labs: 06/25: H/H: 13.4/40.8 ---06/28 - 07/03 : H/H: 11.2/35.3->9.1/29.0->8.5/26.4->8.5/26->8.7/26.5->8.7/26.5- >8.9/27.0 Or: Disagree OR: Other explanation of clinical findings 06/27 op note includes: diagnostic laparoscopy. extensive laparoscopic enterolysis. exploratory laparo dottie. small bowel resection with primary anastomosis EBL:[id number] Blood Products Given: N/A PLEASE DOCUMENT ANY ADDITIONAL DIAGNOSES AND/OR SPECIFICITY IN THE PROGRESS NOTES AND/OR DISCHARGE CRAIN MMARY. Clinically unable to determine/unknown Disagree with the above request Need to discuss Query created by: Johanny Young on 07/03/2018 3:03 PM Electronically signed by: José Miguel Norton APN 07/05/2018 12:23 AM
[2018-07-05] MEDS: Simethicone 40 mg/0.6 ml Liquid (30 ml) PO SCH ×4 (03:32→22:43)
[2018-07-05] MEDS: Piperacillin/Tazobact 3.375 GM in Sodium Chloride 0.9% 100 ML IVPB SCH ×2 (03:34→10:00)
[2018-07-05] MEDS: Potassium Chl 40 mEq in D5-1/2 1,000 ML IV SCH (05:15)
[2018-07-05 07:22] LABS: HEMOGLOBIN 8.3 g/dL (12.0-16.0); MEAN CELL VOLUME 87.5 fl (81.0-99.0); MEAN CORPUSCULAR HEMOGLOBIN 28.9 pg (27.0-31.0); MEAN CORPUSCULAR HGB CONC 33.1 g/dL (33.0-37.0); RBC 2.86 Mil/uL (3.80-5.20); RED CELL DISTRIBUTION WIDTH 13.4 % (11.5-14.5); WHITE BLOOD COUNT 9.1 K/uL (4.8-10.8)
[2018-07-05 08:10] LABS: ALBUMIN 2.8 g/dL (3.5-5.0); ALT/SGPT 45 U/L (9-52); AST/SGOT 47 U/L (14-36); BLOOD UREA NITROGEN 6 mg/dl (7-17); CALCIUM 7.8 mg/dL (8.4-10.2); GFR NON-AFRICAN AMERICAN > 60
--- NOTE | 2018-07-05 08:34 | CP.PCM.PN ---
<Trip Arshad - Last Filed: 07/05/18 08:32> Subjective - Date & Time of Evaluation Date of Evaluation: 07/05/18 Time of Evaluation: 08:32 - Subjective Subjective: Surgery Progress Note- Dr. Bower Patient seen and examined. Continued lower crampy abd pain. Denies flatus or BM. Occasional nausea, no vomiting. Compliant w/ ambulating. Tolerating sips and chips. Inferior portion of incision w/ seropurulent drainage. 3 john removed to allow for drainage. No leukocytosis at this time. Denies fevers, chills, chest pain, shortness of breath Objective - Vital Signs/Intake and Output Vital Signs (last 24 hours): Temp Pulse Resp BP Pulse Ox 97.7 F 66 20 114/64 96 07/05/18 08:19 07/05/18 08:19 07/05/18 08:19 07/05/18 08:19 07/05/18 08:19 Intake and Output: 07/05/18 07/05/18 06:59 18:59 Intake Total 1400 Output Total 70 Balance 1330 - Medications Medications: Current Medications Alprazolam (Xanax) 0.5 mg PO PRN PRN PRN Reason: Anxiety Last Admin: 07/04/18 22:16 Dose: 0.5 mg Amlodipine Besylate (Norvasc) 5 mg PO DAILY [facility] Last Admin: 07/04/18 08:48 Dose: 5 mg Atorvastatin Calcium (Lipitor) 10 mg PO DAILY [facility] Last Admin: 07/04/18 08:48 Dose: 10 mg Carbamazepine (Tegretol-Xr) 200 mg PO DAILY [facility] Last Admin: 07/04/18 08:48 Dose: 200 mg Clotrimazole (Lotrimin 1% Cream) 1 applic TOP BID [facility] Last Admin: 07/04/18 22:18 Dose: 1 applic Enoxaparin Sodium (Lovenox) 30 mg SC DAILY [facility]; Protocol Last Admin: 07/04/18 08:47 Dose: 30 mg Famotidine (Pepcid) 20 mg IV Q12 [facility] Last Admin: 07/04/18 21:59 Dose: 20 mg Piperacillin Sod/Tazobactam (Sod 3.375 gm/ Sodium Chloride) 100 mls @ 100 mls/hr IVPB Q6 [facility]; Protocol Last Admin: 07/05/18 03:34 Dose: 100 mls/hr Potassium Chloride/Dextrose/Sod Cl (Potassium Chl 40 Meq In D5-1/2ns) 1,000 mls @ 100 mls/hr IV .Q10H [facility] Stop: 07/05/18 09:27 Last Admin: 07/05/18 05:15 Dose: 100 mls/hr Potassium Chloride (Potassium Cl 10meq/50ml Sterile Water) 50 mls @ 50 mls/hr IVPB Q1 [facility] Stop: 07/05/18 11:59 Potassium Phosphate 30 mmole/ (Sodium Chloride) 260 mls @ 65 mls/hr IV ONCE ONE Stop: 07/05/18 12:24 Ketorolac Tromethamine (Toradol) 30 mg IVP Q6 PRN PRN Reason: Pain, moderate (4-7) Last Admin: 07/04/18 02:17 Dose: 30 mg Meclizine HCl (Antivert) 25 mg PO DAILY [facility] Last Admin: 07/04/18 08:49 Dose: 25 mg Ondansetron HCl (Zofran Inj) 4 mg IVP Q4 PRN PRN Reason: Nausea/Vomiting Last Admin: 07/05/18 03:39 Dose: 4 mg Phenol/Menthol (Phenaseptic 1.4% Throat [place]) 1 spry MT Q2 PRN PRN Reason: Sore Throat Last Admin: 06/30/18 10:06 Dose: 1 spr Simethicone (Mylicon Liq) 40 mg PO Q6 [facility] Last Admin: 07/05/18 03:32 Dose: 40 mg Sodium Phosphate (Fleet Enema) 135 ml CO DAILY [facility] Last Admin: 07/04/18 11:09 Dose: 135 ml Zolpidem Tartrate (Ambien) 5 mg PO HS PRN PRN Reason: Insomnia Last Admin: 07/01/18 23:43 Dose: 5 mg - Labs Labs: 07/05/18 05:30 07/05/18 05:30 PT 11.6 Seconds (9.8-13.1) 06/25/18 00:40 INR 1.0 06/25/18 00:40 APTT 25.9 Seconds (25.6-37.1) 06/25/18 00:40 - Constitutional Appears: Non-toxic, No Acute Distress - Head Exam Head Exam: ATRAUMATIC - Eye Exam Eye Exam: EOMI. absent: Scleral icterus - ENT Exam ENT Exam: Mucous Membranes Moist - Respiratory Exam Respiratory Exam: NORMAL BREATHING PATTERN. absent: Accessory Muscle Use, Respiratory Distress - Cardiovascular Exam Cardiovascular Exam: REGULAR RHYTHM. absent: Bradycardia, Tachycardia - GI/Abdominal Exam GI & Abdominal Exam: Soft, Tenderness (crampy abd pain). absent: Distended, Firm, Guarding, Rigid Additional comments: inferior incision draining seropurulent fluid - Neurological Exam Neurological Exam: Alert, Awake, Oriented x3 - Psychiatric Exam Psychiatric exam: Normal Affect - Skin Skin Exam: Dry, Warm Assessment and Plan - Assessment and Plan (Free Text) Assessment: 68F POD#8 s/p diagnostic laparoscopy, extensive laparoscopic enterolysis, exploratory laparotomy with small bowel resection and primary anastomosis Plan: - d/c Reglan, c/w Zofran - Pain control PRN - IV abx per ID recs - Incentive spirometer - sips and chips - monitor bowel function - OOB to chair and ambulation - Replete electrolytes PRN - hypophos; replete lytes - Further recs per Dr. Sheriff PGY2 <Fortunato Vallejo - Last Filed: 07/05/18 14:27> Objective - Vital Signs/Intake and Output Vital Signs (last 24 hours): Temp Pulse Resp BP Pulse Ox 97.7 F 66 20 114/64 96 07/05/18 08:19 07/05/18 10:49 07/05/18 08:19 07/05/18 10:49 07/05/18 08:19 Intake and Output: 07/05/18 07/05/18 06:59 18:59 Intake Total 1400 Output Total 70 Balance 1330 - Medications Medications: Current Medications Alprazolam (Xanax) 0.5 mg PO PRN PRN PRN Reason: Anxiety Last Admin: 07/04/18 22:16 Dose: 0.5 mg Amlodipine Besylate (Norvasc) 5 mg PO DAILY [facility] Last Admin: 07/05/18 10:49 Dose: 5 mg Atorvastatin Calcium (Lipitor) 10 mg PO DAILY [facility] Last Admin: 07/05/18 10:49 Dose: 10 mg Carbamazepine (Tegretol-Xr) 200 mg PO DAILY [facility] Last Admin: 07/05/18 10:48 Dose: 200 mg Clotrimazole (Lotrimin 1% Cream) 1 applic TOP BID [facility] Last Admin: 07/05/18 10:50 Dose: Not Given Enoxaparin Sodium (Lovenox) 30 mg SC DAILY [facility]; Protocol Last Admin: 07/05/18 10:50 Dose: 30 mg Famotidine (Pepcid) 20 mg IV Q12 [facility] Last Admin: 07/05/18 11:37 Dose: 20 mg Ketorolac Tromethamine (Toradol) 30 mg IVP Q6 PRN PRN Reason: Pain, moderate (4-7) Last Admin: 07/04/18 02:17 Dose: 30 mg Meclizine HCl (Antivert) 25 mg PO DAILY [facility] Last Admin: 07/05/18 10:49 Dose: 25 mg Ondansetron HCl (Zofran Inj) 4 mg IVP Q4 PRN PRN Reason: Nausea/Vomiting Last Admin: 07/05/18 11:35 Dose: 4 mg Phenol/Menthol (Phenaseptic 1.4% Throat [place]) 1 spry MT Q2 PRN PRN Reason: Sore Throat Last Admin: 06/30/18 10:06 Dose: 1 spr Simethicone (Mylicon Liq) 40 mg PO Q6 [facility] Last Admin: 07/05/18 03:32 Dose: 40 mg Sodium Phosphate (Fleet Enema) 135 ml CO DAILY [facility] Last Admin: 07/04/18 11:09 Dose: 135 ml Zolpidem Tartrate (Ambien) 5 mg PO HS PRN PRN Reason: Insomnia Last Admin: 07/01/18 23:43 Dose: 5 mg - Labs Labs: 07/05/18 05:30 07/05/18 05:30 PT 11.6 Seconds (9.8-13.1) 06/25/18 00:40 INR 1.0 06/25/18 00:40 APTT 25.9 Seconds (25.6-37.1) 06/25/18 00:40 Assessment and Plan - Assessment and Plan (Free Text) Plan: All medical record entries made by the resident were at my direction. I have reviewed the chart and agree that the record accurately reflects my personal performance of the history, physical exam, and medical decision making.
[2018-07-05] MEDS ORDERED: Potassium Phosphate 30 MMOLE in Sodium Chloride 0.9% 250 ML IV ONE (09:00)
[2018-07-05] MEDS ORDERED: Iohexol 240 (50 ml) PO ONE (09:33)
[2018-07-05] MEDS: Enoxaparin 30 mg Syringe SC SCH (10:50)
--- NOTE | 2018-07-05 11:55 | CP.PCM.PN ---
Subjective - Date & Time of Evaluation Date of Evaluation: 07/05/18 Time of Evaluation: 11:55 - Subjective Subjective: patient seen and examined at bedside. Interim events noted feels bloated, no BM yet, pain controlled spoke with family at bedside denies cp/sob/fever/chills. available diagnostic data reviewed Review of Systems All systems: reviewed and no additional remarkable complaints except mentioned above Objective Vital Signs Stable - Constitutional Appears: Non-toxic, No Acute Distress Head Exam: NORMAL INSPECTION Eye Exam: Normal appearance Respiratory Exam: NORMAL BREATHING PATTERN Cardiovascular Exam: +S1, +S2 GI & Abdominal Exam: abdominal binder in place Neurological Exam: Alert, Awake Psychiatric exam: Normal Affect, Normal Mood Skin Exam: Normal Color, Warm Assessment and Plan monitor vitals monitor labs Cont meds Cont tx consultants appreciated input NPO c/w OOB for CT abdomen/pelvis today with contrast rest of plan as ordered Objective - Vital Signs/Intake and Output Vital Signs (last 24 hours): Temp Pulse Resp BP Pulse Ox 97.7 F 66 20 114/64 96 07/05/18 08:19 07/05/18 10:49 07/05/18 08:19 07/05/18 10:49 07/05/18 08:19 Intake and Output: 07/05/18 07/05/18 06:59 18:59 Intake Total 1400 Output Total 70 Balance 1330 - Medications Medications: Current Medications Alprazolam (Xanax) 0.5 mg PO PRN PRN PRN Reason: Anxiety Last Admin: 07/04/18 22:16 Dose: 0.5 mg Amlodipine Besylate (Norvasc) 5 mg PO DAILY [facility] Last Admin: 07/05/18 10:49 Dose: 5 mg Atorvastatin Calcium (Lipitor) 10 mg PO DAILY [facility] Last Admin: 07/05/18 10:49 Dose: 10 mg Carbamazepine (Tegretol-Xr) 200 mg PO DAILY [facility] Last Admin: 07/05/18 10:48 Dose: 200 mg Clotrimazole (Lotrimin 1% Cream) 1 applic TOP BID [facility] Last Admin: 07/05/18 10:50 Dose: Not Given Enoxaparin Sodium (Lovenox) 30 mg SC DAILY [facility]; Protocol Last Admin: 07/05/18 10:50 Dose: 30 mg Famotidine (Pepcid) 20 mg IV Q12 [facility] Last Admin: 07/05/18 11:37 Dose: 20 mg Piperacillin Sod/Tazobactam (Sod 3.375 gm/ Sodium Chloride) 100 mls @ 100 mls/hr IVPB Q6 [facility]; Protocol Last Admin: 07/05/18 10:00 Dose: 100 mls/hr Potassium Chloride (Potassium Cl 10meq/50ml Sterile Water) 50 mls @ 50 mls/hr IVPB Q1 [facility] Stop: 07/05/18 11:59 Potassium Phosphate 30 mmole/ (Sodium Chloride) 260 mls @ 65 mls/hr IV ONCE ONE Stop: 07/05/18 12:59 Ketorolac Tromethamine (Toradol) 30 mg IVP Q6 PRN PRN Reason: Pain, moderate (4-7) Last Admin: 07/04/18 02:17 Dose: 30 mg Meclizine HCl (Antivert) 25 mg PO DAILY [facility] Last Admin: 07/05/18 10:49 Dose: 25 mg Ondansetron HCl (Zofran Inj) 4 mg IVP Q4 PRN PRN Reason: Nausea/Vomiting Last Admin: 07/05/18 11:35 Dose: 4 mg Phenol/Menthol (Phenaseptic 1.4% Throat [place]) 1 spry MT Q2 PRN PRN Reason: Sore Throat Last Admin: 06/30/18 10:06 Dose: 1 spr Simethicone (Mylicon Liq) 40 mg PO Q6 [facility] Last Admin: 07/05/18 03:32 Dose: 40 mg Sodium Phosphate (Fleet Enema) 135 ml MT DAILY [facility] Last Admin: 07/04/18 11:09 Dose: 135 ml Zolpidem Tartrate (Ambien) 5 mg PO HS PRN PRN Reason: Insomnia Last Admin: 07/01/18 23:43 Dose: 5 mg - Labs Labs: 07/05/18 05:30 07/05/18 05:30 PT 11.6 Seconds (9.8-13.1) 06/25/18 00:40 INR 1.0 06/25/18 00:40 APTT 25.9 Seconds (25.6-37.1) 06/25/18 00:40 Assessment and Plan (1) Small bowel obstruction Status: Acute (2) Hypokalemia Status: Resolved
--- NOTE | 2018-07-05 13:19 | CP.PCM.PN ---
Subjective - Date & Time of Evaluation Date of Evaluation: 07/05/18 Time of Evaluation: 09:00 - Subjective Subjective: still not passing gas c/o hunger NPO still denies fever min drainage from abd wound Objective - Vital Signs/Intake and Output Vital Signs (last 24 hours): Temp Pulse Resp BP Pulse Ox 97.7 F 66 20 114/64 96 07/05/18 08:19 07/05/18 10:49 07/05/18 08:19 07/05/18 10:49 07/05/18 08:19 Intake and Output: 07/05/18 07/05/18 06:59 18:59 Intake Total 1400 Output Total 70 Balance 1330 - Medications Medications: Current Medications Alprazolam (Xanax) 0.5 mg PO PRN PRN PRN Reason: Anxiety Last Admin: 07/04/18 22:16 Dose: 0.5 mg Amlodipine Besylate (Norvasc) 5 mg PO DAILY [facility] Last Admin: 07/05/18 10:49 Dose: 5 mg Atorvastatin Calcium (Lipitor) 10 mg PO DAILY [facility] Last Admin: 07/05/18 10:49 Dose: 10 mg Carbamazepine (Tegretol-Xr) 200 mg PO DAILY [facility] Last Admin: 07/05/18 10:48 Dose: 200 mg Clotrimazole (Lotrimin 1% Cream) 1 applic TOP BID [facility] Last Admin: 07/05/18 10:50 Dose: Not Given Enoxaparin Sodium (Lovenox) 30 mg SC DAILY [facility]; Protocol Last Admin: 07/05/18 10:50 Dose: 30 mg Famotidine (Pepcid) 20 mg IV Q12 [facility] Last Admin: 07/05/18 11:37 Dose: 20 mg Ketorolac Tromethamine (Toradol) 30 mg IVP Q6 PRN PRN Reason: Pain, moderate (4-7) Last Admin: 07/04/18 02:17 Dose: 30 mg Meclizine HCl (Antivert) 25 mg PO DAILY [facility] Last Admin: 07/05/18 10:49 Dose: 25 mg Ondansetron HCl (Zofran Inj) 4 mg IVP Q4 PRN PRN Reason: Nausea/Vomiting Last Admin: 07/05/18 11:35 Dose: 4 mg Phenol/Menthol (Phenaseptic 1.4% Throat [place]) 1 spry MT Q2 PRN PRN Reason: Sore Throat Last Admin: 06/30/18 10:06 Dose: 1 spr Simethicone (Mylicon Liq) 40 mg PO Q6 [facility] Last Admin: 07/05/18 03:32 Dose: 40 mg Sodium Phosphate (Fleet Enema) 135 ml MT DAILY [facility] Last Admin: 07/04/18 11:09 Dose: 135 ml Zolpidem Tartrate (Ambien) 5 mg PO HS PRN PRN Reason: Insomnia Last Admin: 07/01/18 23:43 Dose: 5 mg - Labs Labs: 07/05/18 05:30 07/05/18 05:30 PT 11.6 Seconds (9.8-13.1) 06/25/18 00:40 INR 1.0 06/25/18 00:40 APTT 25.9 Seconds (25.6-37.1) 06/25/18 00:40 - Constitutional Appears: No Acute Distress, Chronically Ill - Head Exam Head Exam: ATRAUMATIC, NORMAL INSPECTION, NORMOCEPHALIC - Eye Exam Eye Exam: EOMI, Normal appearance, PERRL Pupil Exam: NORMAL ACCOMODATION, PERRL - ENT Exam ENT Exam: Mucous Membranes Moist, Normal Exam - Neck Exam Neck Exam: Full ROM, Normal Inspection. absent: Lymphadenopathy - Respiratory Exam Respiratory Exam: Clear to Ausculation Bilateral, NORMAL BREATHING PATTERN - Cardiovascular Exam Cardiovascular Exam: REGULAR RHYTHM, +S1, +S2. absent: Murmur - GI/Abdominal Exam GI & Abdominal Exam: Distended, Guarding, Soft, Hyperactive Bowel Sounds. absent: Rigid, Tenderness - Rectal Exam Rectal Exam: Deferred - Exam Exam: NORMAL INSPECTION - Extremities Exam Extremities Exam: Full ROM, Normal Capillary Refill, Normal Inspection. absent: Joint Swelling, Pedal Edema - Back Exam Back Exam: NORMAL INSPECTION - Neurological Exam Neurological Exam: Alert, Awake, CN II-XII Intact, Normal Gait, Oriented x3 - Psychiatric Exam Psychiatric exam: Depressed - Skin Skin Exam: Dry, Intact, Normal Color, Warm Assessment and Plan (1) Asthma Status: Acute (2) Small bowel obstruction Status: Acute (3) Small bowel obstruction, partial Status: Acute (4) Small bowel obstruction, partial Status: Acute (5) Intermittent small bowel obstruction Status: Acute - Assessment and Plan (Free Text) Assessment: for repeat CT r/o obstruction / volvulus renew rx as ordered discussed in detail with Dr Barthuez
[2018-07-05] MEDS ORDERED: Iohexol 300 100 ML IJ ONE (14:04)
[2018-07-05] MEDS ORDERED: Sodium Chloride 0.9% 50 ML IV ONE (14:05)
[2018-07-05] MEDS: Potassium CL 10 MEQ/50 ML 50 ML IVPB SCH ×3 (14:30→17:33)
--- NOTE | 2018-07-05 16:17 | CT ---
Date of service: 07/05/2018 PROCEDURE: CT Abdomen and Pelvis with Oral contrast. HISTORY: s/p Ex-lap COMPARISON: 06/25/2018 TECHNIQUE: Contiguous axial images of the abdomen and pelvis. Oral contrast was administered. No IV contrast given. Coronal and Sagittal reformats generated. Radiation dose: Total exam DLP = 749.52 mGy-cm. This CT exam was performed using one or more of the following dose reduction techniques: Automated exposure control, adjustment of the mA and/or kV according to patient size, and/or use of iterative reconstruction technique. FINDINGS: LOWER THORAX: There is increased density in the right lower lobe consistent with increased subsegmental atelectasis although small underlying pneumonia cannot be excluded. Minor subsegmental atelectasis is seen at the left lung base. There is a tiny 2 millimeter subpleural pulmonary nodule seen in the left lower lobe, unchanged. Small amount of right pleural fluid is not excluded. No pericardial fluid is seen. Visualized esophagus is unremarkable. Stomach is mildly increased in distention with oral contrast identified in the stomach but no wall thickening. Duodenum is also distended with oral contrast. LIVER: The liver is unchanged in size and density without evidence of new perihepatic collection or intrahepatic ductal dilatation. GALLBLADDER AND BILE DUCTS: Gallbladder has been previously removed. Common bile duct is normal in size. PANCREAS: Unremarkable. No mass. No ductal dilatation. SPLEEN: Unremarkable. No splenomegaly. ADRENALS: Unremarkable. KIDNEYS AND URETERS: Kidneys show no evidence of new hydronephrosis or perinephric change. BLADDER: Bladder is decompressed but otherwise normal in size and outline. REPRODUCTIVE: No pelvic or adnexal masses are seen. APPENDIX: Appendix appears to be normal in size. No periappendiceal inflammatory changes are noted. BOWEL: Evaluation of the small bowel reveals evidence of persistent moderate areas of small bowel dilatation. There appears to be induration and thickening of the right lower pelvic central mesentery on axial images 110 through 132 series 3. This is noted adjacent to some surgical clips. Additional induration is seen in the mesentery superior to this region, also with some linear areas of high density probable surgical clips or sutures noted. There is also a in interval right lower quadrant drainage catheter extending from the right lower anterior abdomen inferiorly and uncoiling superiorly. Small amounts of ascites are seen in the right side of the abdomen although the drainage catheter does not appear to extend into the largest pocket in the right mid abdomen on axial images 82 through 90 series 3 and seen on coronal images 44 through 59.. This measures 4.4 centimeters by 3.8 centimeters by 3 centimeters. There is additionally low-density fluid surrounding portions of the right colon which is also mildly thickened although a portion may be related to under distention. Mild amount of superimposed colitis cannot be excluded. Terminal ileum appears to be grossly decompressed. No appreciable pneumatosis or free air is identified. Tiny amount of air seen in the anterior abdominal incision. Additional mild fluid is also seen in the central pelvis. PERITONEUM: Please see above. LYMPH NODES: No new adenopathy. VASCULATURE: Aorta is normal in size. Vasculature however is suboptimally evaluated without contrast. Minimal atherosclerotic calcification is seen. BONES: Stable OTHER FINDINGS: None. IMPRESSION: Status post exploratory laparotomy from the prior study from 06/25/2018. There is moderate persistent small-bowel obstruction with numerous dilated small bowel loops appreciated. No appreciable free intraperitoneal air or pneumatosis identified. Areas of mesenteric induration and scattered areas of fluid/phlegmon are noted as described in detail above. Right lower quadrant and right abdomen drainage catheter does not appear to extend through these regions. These areas are new from the prior study. Areas of fluid are also seen surrounding the right lower abdomen and pelvic small bowel loops. Given the induration and fluid surrounding the loops, an element of ischemia cannot fully be excluded on this noncontrast examination. Additional mild fluid and/or thickening of the right colon may suggest some mild superimposed colitis. New mild subsegmental atelectasis or small infiltrate at the right lung base. This case was assigned a critical red tag status in the PACS system utilizing normal department protocol.
[2018-07-05] MEDS ORDERED: Potassium Chloride 40 MEQ in Sodium Chloride 0.45% 1,000 ML IV SCH (18:00)
[2018-07-06] MEDS: Simethicone 40 mg/0.6 ml Liquid (30 ml) PO SCH ×4 (03:59→21:55)
[2018-07-06 07:57] LABS: BLOOD UREA NITROGEN 3 mg/dl (7-17); CALCIUM 8.2 mg/dL (8.4-10.2); GFR NON-AFRICAN AMERICAN > 60
[2018-07-06] MEDS: Enoxaparin 30 mg Syringe SC SCH (10:01)
--- NOTE | 2018-07-06 10:16 | CP.PCM.PN ---
<KernGhada hurtado - Last Filed: 07/06/18 11:31> Subjective - Date & Time of Evaluation Date of Evaluation: 07/06/18 Time of Evaluation: 07:40 - Subjective Subjective: General Surgery: Bower Patient seen and examined this ma at bedside. No acute events overnight. + flatus and BM, + ambulation. dressing changed bedside with purulent drainage on gauze. pt has no complaints at this time. denies f/c, n/v, abdominal pain. 12 point ROS otherwise negative Objective - Vital Signs/Intake and Output Vital Signs (last 24 hours): Temp Pulse Resp BP Pulse Ox 98 F 62 20 142/68 97 07/06/18 08:11 07/06/18 10:02 07/06/18 08:11 07/06/18 10:02 07/06/18 08:11 - Medications Medications: Current Medications Alprazolam (Xanax) 0.5 mg PO PRN PRN PRN Reason: Anxiety Last Admin: 07/04/18 22:16 Dose: 0.5 mg Amlodipine Besylate (Norvasc) 5 mg PO DAILY [facility] Last Admin: 07/06/18 10:02 Dose: 5 mg Atorvastatin Calcium (Lipitor) 10 mg PO DAILY [facility] Last Admin: 07/06/18 10:02 Dose: 10 mg Carbamazepine (Tegretol-Xr) 200 mg PO DAILY [facility] Last Admin: 07/06/18 10:00 Dose: 200 mg Clotrimazole (Lotrimin 1% Cream) 1 applic TOP BID [facility] Last Admin: 07/06/18 10:00 Dose: Not Given Enoxaparin Sodium (Lovenox) 30 mg SC DAILY [facility]; Protocol Last Admin: 07/06/18 10:01 Dose: 30 mg Famotidine (Pepcid) 20 mg IV Q12 [facility] Last Admin: 07/06/18 10:03 Dose: 20 mg Potassium Chloride 40 meq/ (Sodium Chloride) 1,020 mls @ 100 mls/hr IV .[id number] [facility] Stop: 07/08/18 18:01 Last Admin: 07/05/18 23:15 Dose: 100 mls/hr Ketorolac Tromethamine (Toradol) 30 mg IVP Q6 PRN PRN Reason: Pain, moderate (4-7) Last Admin: 07/04/18 02:17 Dose: 30 mg Meclizine HCl (Antivert) 25 mg PO DAILY [facility] Last Admin: 07/06/18 10:01 Dose: 25 mg Ondansetron HCl (Zofran Inj) 4 mg IVP Q4 PRN PRN Reason: Nausea/Vomiting Last Admin: 07/05/18 11:35 Dose: 4 mg Phenol/Menthol (Phenaseptic 1.4% Throat [place]) 1 spry MT Q2 PRN PRN Reason: Sore Throat Last Admin: 06/30/18 10:06 Dose: 1 spr Simethicone (Mylicon Liq) 40 mg PO Q6 [facility] Last Admin: 07/06/18 09:59 Dose: 40 mg Sodium Phosphate (Fleet Enema) 135 ml [place] DAILY [facility] Last Admin: 07/05/18 18:41 Dose: Not Given Zolpidem Tartrate (Ambien) 5 mg PO HS PRN PRN Reason: Insomnia Last Admin: 07/05/18 22:43 Dose: 5 mg - Labs Labs: 07/05/18 05:30 07/06/18 06:00 PT 11.6 Seconds (9.8-13.1) 06/25/18 00:40 INR 1.0 06/25/18 00:40 APTT 25.9 Seconds (25.6-37.1) 06/25/18 00:40 - Constitutional Appears: Well, Non-toxic, No Acute Distress - Head Exam Head Exam: ATRAUMATIC, NORMOCEPHALIC - Eye Exam Eye Exam: EOMI - ENT Exam ENT Exam: Mucous Membranes Moist - Respiratory Exam Respiratory Exam: NORMAL BREATHING PATTERN - Cardiovascular Exam Cardiovascular Exam: REGULAR RHYTHM - GI/Abdominal Exam GI & Abdominal Exam: Soft. absent: Guarding, Tenderness Additional comments: incision with john in place, several john removed at inferior portion, gauze with purulent drainage and overall dressing changed, no erythema/ skin b reakdown at incision site - Extremities Exam Extremities Exam: absent: Calf Tenderness, Pedal Edema - Neurological Exam Neurological Exam: Alert, Awake, Oriented x3 - Psychiatric Exam Psychiatric exam: Normal Affect, Normal Mood - Skin Skin Exam: Dry, Normal Color, Warm Assessment and Plan - Assessment and Plan (Free Text) Assessment: 68F POD#9 s/p diagnostic laparoscopy, extensive laparoscopic enterolysis, exploratory laparotomy with small bowel resection and primary anastomosis Plan: - CLD - Pain control PRN - IV abx per ID recs - Incentive spirometer - monitor bowel function - OOB to chair and ambulation - Replete electrolytes PRN - Further recs per Dr. Elliott, PGY 1 <Fortunato Vallejo - Last Filed: 07/08/18 07:41> Objective - Vital Signs/Intake and Output Vital Signs (last 24 hours): Temp Pulse Resp BP Pulse Ox 98.3 F 64 19 131/71 95 07/08/18 00:27 07/08/18 00:27 07/08/18 00:27 07/08/18 00:27 07/08/18 00:27 - Medications Medications: Current Medications Acetaminophen (Tylenol 325mg Tab) 650 mg PO Q6 PRN PRN Reason: pain 1-3 or fever > 100.4 Alprazolam (Xanax) 0.5 mg PO PRN PRN PRN Reason: Anxiety Last Admin: 07/04/18 22:16 Dose: 0.5 mg Amlodipine Besylate (Norvasc) 5 mg PO DAILY [facility] Last Admin: 07/07/18 10:46 Dose: 5 mg Atorvastatin Calcium (Lipitor) 10 mg PO DAILY [facility] Last Admin: 07/07/18 09:03 Dose: 10 mg Carbamazepine (Tegretol-Xr) 200 mg PO DAILY [facility] Last Admin: 07/07/18 09:06 Dose: 200 mg Clotrimazole (Lotrimin 1% Cream) 1 applic TOP BID [facility] Last Admin: 07/07/18 16:33 Dose: Not Given Enoxaparin Sodium (Lovenox) 30 mg [place] DAILY [facility]; Protocol Last Admin: 07/07/18 09:03 Dose: 30 mg Famotidine (Pepcid) 20 mg IV Q12 [facility] Last Admin: 07/07/18 20:56 Dose: 20 mg Piperacillin Sod/Tazobactam (Sod 3.375 gm/ Sodium Chloride) 100 mls @ 100 mls/hr IVPB Q6 [facility]; Protocol Last Admin: 07/08/18 03:14 Dose: 100 mls/hr Ketorolac Tromethamine (Toradol) 15 mg IVP Q6 PRN PRN Reason: Pain, severe (8-10) Meclizine HCl (Antivert) 25 mg PO DAILY [facility] Last Admin: 07/07/18 09:04 Dose: 25 mg Ondansetron HCl (Zofran Inj) 4 mg IVP Q4 PRN PRN Reason: Nausea/Vomiting Last Admin: 07/05/18 11:35 Dose: 4 mg Phenol/Menthol (Phenaseptic 1.4% Throat [place]) 1 spry MT Q2 PRN PRN Reason: Sore Throat Last Admin: 06/30/18 10:06 Dose: 1 spr Simethicone (Mylicon Liq) 40 mg PO Q6 [facility] Last Admin: 07/08/18 03:42 Dose: Not Given Tramadol HCl (Ultram) 50 mg PO Q4 PRN PRN Reason: Pain, moderate (4-7) Zolpidem Tartrate (Ambien) 5 mg PO HS PRN PRN Reason: Insomnia Last Admin: 07/07/18 22:49 Dose: 5 mg - Labs Labs: 07/07/18 05:30 07/07/18 05:30 PT 11.6 Seconds (9.8-13.1) 06/25/18 00:40 INR 1.0 06/25/18 00:40 APTT 25.9 Seconds (25.6-37.1) 06/25/18 00:40 Assessment and Plan - Assessment and Plan (Free Text) Plan: All medical record entries made by the resident were at my direction. I have reviewed the chart and agree that the record accurately reflects my personal performance of the history, physical exam, and medical decision making.
[2018-07-07] MEDS: Simethicone 40 mg/0.6 ml Liquid (30 ml) PO SCH ×4 (04:52→21:06)
[2018-07-07 07:25] LABS: EOS # 0.1 K/uL (0.0-0.7); EOS % 1.5 % (0.0-4.0); HEMOGLOBIN 8.7 g/dL (12.0-16.0); LYMPH # 1.5 K/uL (1.0-4.3); LYMPH % 18.4 % (20.0-40.0); MEAN CELL VOLUME 86.5 fl (81.0-99.0); MEAN CORPUSCULAR HGB CONC 33.5 g/dL (33.0-37.0); MEAN PLATELET VOLUME 8.3 fl (7.2-11.7); MONO # 0.8 K/uL (0.0-0.8); MONO % 10.2 % (0.0-10.0); NEUT # 5.7 K/uL (1.8-7.0); NEUT % 69.9 % (50.0-75.0); NRBC % 0.1 % (0.0-0.0); RBC 3.01 Mil/uL (3.80-5.20); RED CELL DISTRIBUTION WIDTH 13.2 % (11.5-14.5); WHITE BLOOD COUNT 8.2 K/uL (4.8-10.8)
[2018-07-07 07:27] LABS: ALB/GLOB RATIO 1.1 (1.0-2.1); ALT/SGPT 44 U/L (9-52); AST/SGOT 59 U/L (14-36); BLOOD UREA NITROGEN 4 mg/dl (7-17); CALCIUM 7.8 mg/dL (8.4-10.2); GFR NON-AFRICAN AMERICAN > 60
--- NOTE | 2018-07-07 07:44 | CP.PCM.PN ---
<Shaun Iniguez - Last Filed: 07/07/18 07:51> Subjective - Date & Time of Evaluation Date of Evaluation: 07/07/18 Time of Evaluation: 05:30 - Subjective Subjective: General Surgery note for Dr. Bower Patient seen and examined at bedside. No acute events overnight. She states pain is controlled. Admits to flatus and BM. She is OOB and ambulating. Denies f/c, n/v/d. She is requesting more food. Objective - Vital Signs/Intake and Output Vital Signs (last 24 hours): Temp Pulse Resp BP Pulse Ox 97.7 F 67 18 116/66 98 07/07/18 00:09 07/07/18 00:09 07/07/18 00:09 07/07/18 00:09 07/07/18 00:09 - Medications Medications: Current Medications Alprazolam (Xanax) 0.5 mg PO PRN PRN PRN Reason: Anxiety Last Admin: 07/04/18 22:16 Dose: 0.5 mg Amlodipine Besylate (Norvasc) 5 mg PO DAILY [facility] Last Admin: 07/06/18 10:02 Dose: 5 mg Atorvastatin Calcium (Lipitor) 10 mg PO DAILY [facility] Last Admin: 07/06/18 10:02 Dose: 10 mg Carbamazepine (Tegretol-Xr) 200 mg PO DAILY [facility] Last Admin: 07/06/18 10:00 Dose: 200 mg Clotrimazole (Lotrimin 1% Cream) 1 applic TOP BID [facility] Last Admin: 07/06/18 16:07 Dose: 1 applic Enoxaparin Sodium (Lovenox) 30 mg SC DAILY [facility]; Protocol Last Admin: 07/06/18 10:01 Dose: 30 mg Famotidine (Pepcid) 20 mg IV Q12 [facility] Last Admin: 07/06/18 21:55 Dose: 20 mg Ketorolac Tromethamine (Toradol) 30 mg IVP Q6 PRN PRN Reason: Pain, moderate (4-7) Last Admin: 07/07/18 02:14 Dose: 30 mg Meclizine HCl (Antivert) 25 mg PO DAILY [facility] Last Admin: 07/06/18 10:01 Dose: 25 mg Ondansetron HCl (Zofran Inj) 4 mg IVP Q4 PRN PRN Reason: Nausea/Vomiting Last Admin: 07/05/18 11:35 Dose: 4 mg Phenol/Menthol (Phenaseptic 1.4% Throat [place]) 1 spry MT Q2 PRN PRN Reason: Sore Throat Last Admin: 06/30/18 10:06 Dose: 1 spr Simethicone (Mylicon Liq) 40 mg PO Q6 [facility] Last Admin: 07/07/18 04:52 Dose: 4 mg Zolpidem Tartrate (Ambien) 5 mg PO HS PRN PRN Reason: Insomnia Last Admin: 07/06/18 22:00 Dose: 5 mg - Labs Labs: 07/07/18 05:30 07/07/18 05:30 PT 11.6 Seconds (9.8-13.1) 06/25/18 00:40 INR 1.0 06/25/18 00:40 APTT 25.9 Seconds (25.6-37.1) 06/25/18 00:40 - Additional Findings Additional findings: - Constitutional Appears: Well, Non-toxic, No Acute Distress - Head Exam Head Exam: ATRAUMATIC, NORMOCEPHALIC - Eye Exam Eye Exam: EOMI - ENT Exam ENT Exam: Mucous Membranes Moist - Respiratory Exam Respiratory Exam: NORMAL BREATHING PATTERN - Cardiovascular Exam Cardiovascular Exam: REGULAR RHYTHM - GI/Abdominal Exam GI & Abdominal Exam: Soft. absent: Guarding, Tenderness Additional comments: incision with john removed at inferior portion, gauze packing with some purulent drainage, dressing changed - Extremities Exam Extremities Exam: absent: Calf Tenderness, Pedal Edema - Neurological Exam Neurological Exam: Alert, Awake, Oriented x3 - Psychiatric Exam Psychiatric exam: Normal Affect, Normal Mood - Skin Skin Exam: Dry, Normal Color, Warm Assessment and Plan - Assessment and Plan (Free Text) Assessment: 68F s/p diagnostic laparoscopy, extensive laparoscopic enterolysis, exploratory laparotomy with small bowel resection and primary anastomosis POD#10 Plan: - CLD - Pain control PRN - IV abx - monitor bowel function - IS, OOB to chair and ambulation - Replete electrolytes PRN - PT - Further recs per Dr. Strong PGY2 <Fortunato Vallejo - Last Filed: 07/08/18 07:38> Objective - Vital Signs/Intake and Output Vital Signs (last 24 hours): Temp Pulse Resp BP Pulse Ox 98.3 F 64 19 131/71 95 07/08/18 00:27 07/08/18 00:27 07/08/18 00:27 07/08/18 00:27 07/08/18 00:27 - Medications Medications: Current Medications Acetaminophen (Tylenol 325mg Tab) 650 mg PO Q6 PRN PRN Reason: pain 1-3 or fever > 100.4 Alprazolam (Xanax) 0.5 mg PO PRN PRN PRN Reason: Anxiety Last Admin: 07/04/18 22:16 Dose: 0.5 mg Amlodipine Besylate (Norvasc) 5 mg PO DAILY [facility] Last Admin: 07/07/18 10:46 Dose: 5 mg Atorvastatin Calcium (Lipitor) 10 mg PO DAILY [facility] Last Admin: 07/07/18 09:03 Dose: 10 mg Carbamazepine (Tegretol-Xr) 200 mg PO DAILY [facility] Last Admin: 07/07/18 09:06 Dose: 200 mg Clotrimazole (Lotrimin 1% Cream) 1 applic TOP BID [facility] Last Admin: 07/07/18 16:33 Dose: Not Given Enoxaparin Sodium (Lovenox) 30 mg [place] DAILY [facility]; Protocol Last Admin: 07/07/18 09:03 Dose: 30 mg Famotidine (Pepcid) 20 mg IV Q12 [facility] Last Admin: 07/07/18 20:56 Dose: 20 mg Piperacillin Sod/Tazobactam (Sod 3.375 gm/ Sodium Chloride) 100 mls @ 100 mls/hr IVPB Q6 [facility]; Protocol Last Admin: 07/08/18 03:14 Dose: 100 mls/hr Ketorolac Tromethamine (Toradol) 15 mg IVP Q6 PRN PRN Reason: Pain, severe (8-10) Meclizine HCl (Antivert) 25 mg PO DAILY [facility] Last Admin: 07/07/18 09:04 Dose: 25 mg Ondansetron HCl (Zofran Inj) 4 mg IVP Q4 PRN PRN Reason: Nausea/Vomiting Last Admin: 07/05/18 11:35 Dose: 4 mg Phenol/Menthol (Phenaseptic 1.4% Throat [place]) 1 spry MT Q2 PRN PRN Reason: Sore Throat Last Admin: 06/30/18 10:06 Dose: 1 spr Simethicone (Mylicon Liq) 40 mg PO Q6 [facility] Last Admin: 07/08/18 03:42 Dose: Not Given Tramadol HCl (Ultram) 50 mg PO Q4 PRN PRN Reason: Pain, moderate (4-7) Zolpidem Tartrate (Ambien) 5 mg PO HS PRN PRN Reason: Insomnia Last Admin: 07/07/18 22:49 Dose: 5 mg - Labs Labs: 07/07/18 05:30 07/07/18 05:30 PT 11.6 Seconds (9.8-13.1) 06/25/18 00:40 INR 1.0 06/25/18 00:40 APTT 25.9 Seconds (25.6-37.1) 06/25/18 00:40 Assessment and Plan - Assessment and Plan (Free Text) Assessment: All medical record entries made by the resident were at my direction. I have reviewed the chart and agree that the record accurately reflects my personal performance of the history, physical exam, and medical decision making.
[2018-07-07] MEDS: Enoxaparin 30 mg Syringe SC SCH (09:03)
[2018-07-07] MEDS: Piperacillin/Tazobact 3.375 GM in Sodium Chloride 0.9% 100 ML IVPB SCH ×3 (10:48→21:03)
--- NOTE | 2018-07-07 11:00 | CP.PCM.PN ---
Subjective - Date & Time of Evaluation Date of Evaluation: 07/06/18 Time of Evaluation: 11:00 - Subjective Subjective: patient seen and examined at bedside. Interim events noted + BM and flatus, pain controlled spoke with family at bedside denies cp/sob/fever/chills. available diagnostic data reviewed Review of Systems All systems: reviewed and no additional remarkable complaints except mentioned above Objective Vital Signs Stable - Constitutional Appears: Non-toxic, No Acute Distress Head Exam: NORMAL INSPECTION Eye Exam: Normal appearance Respiratory Exam: NORMAL BREATHING PATTERN Cardiovascular Exam: +S1, +S2 GI & Abdominal Exam: abdominal binder in place Neurological Exam: Alert, Awake Psychiatric exam: Normal Affect, Normal Mood Skin Exam: Normal Color, Warm Assessment and Plan monitor vitals monitor labs Cont meds Cont tx consultants appreciated input advance diet c/w OOB and ambulation rest of plan as ordered Assessment and Plan (1) Small bowel obstruction Status: Acute
--- NOTE | 2018-07-07 11:55 | CP.PCM.PN ---
Subjective - Date & Time of Evaluation Date of Evaluation: 07/07/18 Time of Evaluation: 09:00 - Subjective Subjective: improving Objective - Vital Signs/Intake and Output Vital Signs (last 24 hours): Temp Pulse Resp BP Pulse Ox 98.4 F 70 20 108/70 97 07/07/18 07:51 07/07/18 10:46 07/07/18 07:51 07/07/18 10:46 07/07/18 07:51 - Medications Medications: Current Medications Alprazolam (Xanax) 0.5 mg PO PRN PRN PRN Reason: Anxiety Last Admin: 07/04/18 22:16 Dose: 0.5 mg Amlodipine Besylate (Norvasc) 5 mg PO DAILY [facility] Last Admin: 07/07/18 10:46 Dose: 5 mg Atorvastatin Calcium (Lipitor) 10 mg PO DAILY [facility] Last Admin: 07/07/18 09:03 Dose: 10 mg Carbamazepine (Tegretol-Xr) 200 mg PO DAILY [facility] Last Admin: 07/07/18 09:06 Dose: 200 mg Clotrimazole (Lotrimin 1% Cream) 1 applic TOP BID [facility] Last Admin: 07/07/18 09:03 Dose: 1 applic Enoxaparin Sodium (Lovenox) 30 mg [place] DAILY [facility]; Protocol Last Admin: 07/07/18 09:03 Dose: 30 mg Famotidine (Pepcid) 20 mg IV Q12 [facility] Last Admin: 07/07/18 10:59 Dose: 20 mg Piperacillin Sod/Tazobactam (Sod 3.375 gm/ Sodium Chloride) 100 mls @ 100 mls/hr IVPB Q6 [facility]; Protocol Last Admin: 07/07/18 10:48 Dose: 100 mls/hr Ketorolac Tromethamine (Toradol) 30 mg IVP Q6 PRN PRN Reason: Pain, moderate (4-7) Last Admin: 07/07/18 02:14 Dose: 30 mg Meclizine HCl (Antivert) 25 mg PO DAILY [facility] Last Admin: 07/07/18 09:04 Dose: 25 mg Ondansetron HCl (Zofran Inj) 4 mg IVP Q4 PRN PRN Reason: Nausea/Vomiting Last Admin: 07/05/18 11:35 Dose: 4 mg Phenol/Menthol (Phenaseptic 1.4% Throat [place]) 1 spry [place] Q2 PRN PRN Reason: Sore Throat Last Admin: 06/30/18 10:06 Dose: 1 spr Simethicone (Mylicon Liq) 40 mg PO Q6 [facility] Last Admin: 07/07/18 09:04 Dose: 40 mg Zolpidem Tartrate (Ambien) 5 mg PO HS PRN PRN Reason: Insomnia Last Admin: 07/06/18 22:00 Dose: 5 mg - Labs Labs: 07/07/18 05:30 07/07/18 05:30 PT 11.6 Seconds (9.8-13.1) 06/25/18 00:40 INR 1.0 06/25/18 00:40 APTT 25.9 Seconds (25.6-37.1) 06/25/18 00:40 - Constitutional Appears: Non-toxic, Chronically Ill - Head Exam Head Exam: NORMOCEPHALIC - Eye Exam Eye Exam: absent: Scleral icterus - ENT Exam ENT Exam: Mucous Membranes Dry - Neck Exam Neck Exam: absent: Lymphadenopathy - Respiratory Exam Respiratory Exam: Decreased Breath Sounds - Cardiovascular Exam Cardiovascular Exam: REGULAR RHYTHM - GI/Abdominal Exam GI & Abdominal Exam: Distended, Soft Assessment and Plan (1) Asthma Status: Acute (2) Small bowel obstruction Status: Acute (3) Small bowel obstruction, partial Status: Acute (4) Small bowel obstruction, partial Status: Acute (5) Intermittent small bowel obstruction Status: Acute - Assessment and Plan (Free Text) Assessment: cont supportive rx
[2018-07-07] MEDS ORDERED: HYDROmorphone 0.5 mg/0.5 ml ISec IVP ONE (19:31)
--- NOTE | 2018-07-07 22:38 | CP.PCM.PN ---
Subjective - Date & Time of Evaluation Date of Evaluation: 07/07/18 Time of Evaluation: 09:30 - Subjective Subjective: Pt seen and assessed at bedside. Reports having a semi-formed BM, while also being able to pass gas. Pt still c/o abdominal discomfort, ambulating freely OOB. Subjective Review of Systems: Reviewed and no additional remarkable complaints except occasional abdominal pain. Objective Appears: Anxious, Non-toxic, No Acute Distress. Head Exam: NORMAL INSPECTION, normocephalic. Eye Exam: Normal eye inspection, EOMI, PERRLA. Respiratory Exam: NORMAL BREATHING PATTERN, breath sounds clear bilaterally. Cardiovascular Exam: +S1, +S2. RRR. GI & Abdominal Exam: Soft, non-tender. Neurological Exam: Alert, Awake, Oriented x3. Psychiatric exam: Normal mood. Calm and cooperative. Skin exam: Normal color, warm, dry. Assessment/Impression/Plan: 1.) Partial Small Bowel Obstruction -Pt had a semi-formed BM and is passing flatus at this time. -Electrolytes normalizing. -Remains on clear liquids, consider advancing diet as tolerated -Pain control PRN. -All consults input appreciated. -Continue Zosyn IV antibiotics. Objective - Vital Signs/Intake and Output Vital Signs (last 24 hours): Temp Pulse Resp BP Pulse Ox 98.2 F 71 20 142/76 99 07/07/18 16:31 07/07/18 16:31 07/07/18 16:31 07/07/18 16:31 07/07/18 16:31 - Medications Medications: Current Medications Acetaminophen (Tylenol 325mg Tab) 650 mg PO Q6 PRN PRN Reason: pain 1-3 or fever > 100.4 Alprazolam (Xanax) 0.5 mg PO PRN PRN PRN Reason: Anxiety Last Admin: 07/04/18 22:16 Dose: 0.5 mg Amlodipine Besylate (Norvasc) 5 mg PO DAILY [facility] Last Admin: 07/07/18 10:46 Dose: 5 mg Atorvastatin Calcium (Lipitor) 10 mg PO DAILY [facility] Last Admin: 07/07/18 09:03 Dose: 10 mg Carbamazepine (Tegretol-Xr) 200 mg PO DAILY [facility] Last Admin: 07/07/18 09:06 Dose: 200 mg Clotrimazole (Lotrimin 1% Cream) 1 applic TOP BID [facility] Last Admin: 07/07/18 16:33 Dose: Not Given Enoxaparin Sodium (Lovenox) 30 mg SC DAILY [facility]; Protocol Last Admin: 07/07/18 09:03 Dose: 30 mg Famotidine (Pepcid) 20 mg IV Q12 [facility] Last Admin: 07/07/18 20:56 Dose: 20 mg Piperacillin Sod/Tazobactam (Sod 3.375 gm/ Sodium Chloride) 100 mls @ 100 mls/hr IVPB Q6 [facility]; Protocol Last Admin: 07/07/18 21:03 Dose: 100 mls/hr Ketorolac Tromethamine (Toradol) 15 mg IVP Q6 PRN PRN Reason: Pain, severe (8-10) Meclizine HCl (Antivert) 25 mg PO DAILY [facility] Last Admin: 07/07/18 09:04 Dose: 25 mg Ondansetron HCl (Zofran Inj) 4 mg IVP Q4 PRN PRN Reason: Nausea/Vomiting Last Admin: 07/05/18 11:35 Dose: 4 mg Phenol/Menthol (Phenaseptic 1.4% Throat [place]) 1 spry MT Q2 PRN PRN Reason: Sore Throat Last Admin: 06/30/18 10:06 Dose: 1 spr Simethicone (Mylicon Liq) 40 mg PO Q6 [facility] Last Admin: 07/07/18 21:06 Dose: Not Given Tramadol HCl (Ultram) 50 mg PO Q4 PRN PRN Reason: Pain, moderate (4-7) Zolpidem Tartrate (Ambien) 5 mg PO HS PRN PRN Reason: Insomnia Last Admin: 07/06/18 22:00 Dose: 5 mg - Labs Labs: 07/07/18 05:30 07/07/18 05:30 PT 11.6 Seconds (9.8-13.1) 06/25/18 00:40 INR 1.0 06/25/18 00:40 APTT 25.9 Seconds (25.6-37.1) 06/25/18 00:40 Assessment and Plan (1) Small bowel obstruction, partial Status: Acute
[2018-07-08] MEDS: Piperacillin/Tazobact 3.375 GM in Sodium Chloride 0.9% 100 ML IVPB SCH ×4 (03:14→21:41)
[2018-07-08] MEDS: Simethicone 40 mg/0.6 ml Liquid (30 ml) PO SCH ×4 (03:42→21:39)
--- NOTE | 2018-07-08 08:42 | CP.PCM.PN ---
<Ghada Kern - Last Filed: 07/09/18 06:52> Subjective - Date & Time of Evaluation Date of Evaluation: 07/08/18 Time of Evaluation: 07:30 - Subjective Subjective: General Surgery: Bower patient seen and examined this ma at bedside. No acute events overnight per nursing. Pt states she feels her pain is improving. denies f/c, n/v and endorses BM and flatus. Incision clean with john in place, decreased serous output from inferior opening on incision, dressing changed at bedside. tolerated well. OOB ambulating requesting regular diet Objective - Vital Signs/Intake and Output Vital Signs (last 24 hours): Temp Pulse Resp BP Pulse Ox 98.1 F 59 L 19 114/66 97 07/08/18 08:09 07/08/18 08:09 07/08/18 08:09 07/08/18 08:09 07/08/18 08:09 - Medications Medications: Current Medications Acetaminophen (Tylenol 325mg Tab) 650 mg PO Q6 PRN PRN Reason: pain 1-3 or fever > 100.4 Alprazolam (Xanax) 0.5 mg PO PRN PRN PRN Reason: Anxiety Last Admin: 07/04/18 22:16 Dose: 0.5 mg Amlodipine Besylate (Norvasc) 5 mg PO DAILY [facility] Last Admin: 07/07/18 10:46 Dose: 5 mg Atorvastatin Calcium (Lipitor) 10 mg PO DAILY [facility] Last Admin: 07/07/18 09:03 Dose: 10 mg Carbamazepine (Tegretol-Xr) 200 mg PO DAILY [facility] Last Admin: 07/07/18 09:06 Dose: 200 mg Clotrimazole (Lotrimin 1% Cream) 1 applic TOP BID [facility] Last Admin: 07/07/18 16:33 Dose: Not Given Enoxaparin Sodium (Lovenox) 30 mg SC DAILY [facility]; Protocol Last Admin: 07/07/18 09:03 Dose: 30 mg Famotidine (Pepcid) 20 mg IV Q12 [facility] Last Admin: 07/07/18 20:56 Dose: 20 mg Piperacillin Sod/Tazobactam (Sod 3.375 gm/ Sodium Chloride) 100 mls @ 100 mls/hr IVPB Q6 [facility]; Protocol Last Admin: 07/08/18 03:14 Dose: 100 mls/hr Ketorolac Tromethamine (Toradol) 15 mg IVP Q6 PRN PRN Reason: Pain, severe (8-10) Meclizine HCl (Antivert) 25 mg PO DAILY [facility] Last Admin: 07/07/18 09:04 Dose: 25 mg Ondansetron HCl (Zofran Inj) 4 mg IVP Q4 PRN PRN Reason: Nausea/Vomiting Last Admin: 07/05/18 11:35 Dose: 4 mg Phenol/Menthol (Phenaseptic 1.4% Throat [place]) 1 spry MT Q2 PRN PRN Reason: Sore Throat Last Admin: 06/30/18 10:06 Dose: 1 spr Simethicone (Mylicon Liq) 40 mg PO Q6 [facility] Last Admin: 07/08/18 03:42 Dose: Not Given Tramadol HCl (Ultram) 50 mg PO Q4 PRN PRN Reason: Pain, moderate (4-7) Zolpidem Tartrate (Ambien) 5 mg PO HS PRN PRN Reason: Insomnia Last Admin: 07/07/18 22:49 Dose: 5 mg - Labs Labs: 07/07/18 05:30 07/07/18 05:30 PT 11.6 Seconds (9.8-13.1) 06/25/18 00:40 INR 1.0 06/25/18 00:40 APTT 25.9 Seconds (25.6-37.1) 06/25/18 00:40 - Constitutional Appears: Well, Non-toxic, No Acute Distress - Head Exam Head Exam: ATRAUMATIC, NORMOCEPHALIC - Eye Exam Eye Exam: EOMI - ENT Exam ENT Exam: Mucous Membranes Moist - Respiratory Exam Respiratory Exam: NORMAL BREATHING PATTERN - Cardiovascular Exam Cardiovascular Exam: REGULAR RHYTHM - GI/Abdominal Exam GI & Abdominal Exam: Soft. absent: Guarding, Tenderness Additional comments: incisions clean and dry with john in place, inferior portion of midline incision with 3-4 john removed to allow drainage, decreased serous output from this site no purulent drainage expressed, dressing changed at bedside - Extremities Exam Extremities Exam: absent: Calf Tenderness, Pedal Edema - Neurological Exam Neurological Exam: Alert, Awake, Oriented x3 - Psychiatric Exam Psychiatric exam: Normal Affect, Normal Mood - Skin Skin Exam: Dry, Normal Color, Warm Assessment and Plan - Assessment and Plan (Free Text) Assessment: 68F s/p diagnostic laparoscopy, extensive laparoscopic enterolysis, exploratory laparotomy with small bowel resection and primary anastomosis POD#11 Plan: - regular diet - Pain control PRN - IV abx - monitor bowel function - IS, OOB to chair and ambulation - Replete electrolytes PRN - PT - Further recs per Dr. Elliott, PGY 1 <Fortunato Vallejo - Last Filed: 07/09/18 14:51> Objective - Vital Signs/Intake and Output Vital Signs (last 24 hours): Temp Pulse Resp BP Pulse Ox 98.0 F 67 20 133/73 98 07/09/18 08:59 07/09/18 09:06 07/09/18 08:59 07/09/18 09:06 07/09/18 08:59 - Medications Medications: Current Medications Acetaminophen (Tylenol 325mg Tab) 650 mg PO Q6 PRN PRN Reason: pain 1-3 or fever > 100.4 Alprazolam (Xanax) 0.5 mg PO PRN PRN PRN Reason: Anxiety Last Admin: 07/04/18 22:16 Dose: 0.5 mg Amlodipine Besylate (Norvasc) 5 mg PO DAILY [facility] Last Admin: 07/09/18 09:06 Dose: 5 mg Atorvastatin Calcium (Lipitor) 10 mg PO DAILY [facility] Last Admin: 07/09/18 09:04 Dose: 10 mg Carbamazepine (Tegretol-Xr) 200 mg PO DAILY [facility] Last Admin: 07/09/18 09:07 Dose: 200 mg Clotrimazole (Lotrimin 1% Cream) 1 applic TOP BID [facility] Last Admin: 07/09/18 09:05 Dose: 1 applic Enoxaparin Sodium (Lovenox) 30 mg SC DAILY [facility]; Protocol Last Admin: 07/09/18 09:05 Dose: 30 mg Famotidine (Pepcid) 20 mg IV Q12 [facility] Last Admin: 07/09/18 09:07 Dose: 20 mg Piperacillin Sod/Tazobactam (Sod 3.375 gm/ Sodium Chloride) 100 mls @ 100 mls/hr IVPB Q6 [facility]; Protocol Last Admin: 07/09/18 09:08 Dose: 100 mls/hr Potassium Chloride (Potassium Chloride 20 Meq/100 Ml) 100 mls @ 50 mls/hr IVPB Q2 [facility] Stop: 07/09/18 15:59 Last Admin: 07/09/18 14:44 Dose: 50 mls/hr Ketorolac Tromethamine (Toradol) 15 mg IVP Q6 PRN PRN Reason: Pain, severe (8-10) Meclizine HCl (Antivert) 25 mg PO DAILY [facility] Last Admin: 07/09/18 09:04 Dose: 25 mg Ondansetron HCl (Zofran Inj) 4 mg IVP Q4 PRN PRN Reason: Nausea/Vomiting Last Admin: 07/05/18 11:35 Dose: 4 mg Phenol/Menthol (Phenaseptic 1.4% Throat [place]) 1 spry MT Q2 PRN PRN Reason: Sore Throat Last Admin: 06/30/18 10:06 Dose: 1 spr Simethicone (Mylicon Liq) 40 mg PO Q6 [facility] Last Admin: 07/09/18 09:06 Dose: 40 mg Spironolactone (Aldactone) 25 mg PO BID [facility] Last Admin: 07/09/18 14:43 Dose: 25 mg Tramadol HCl (Ultram) 50 mg PO Q4 PRN PRN Reason: Pain, moderate (4-7) Zolpidem Tartrate (Ambien) 5 mg PO HS PRN PRN Reason: Insomnia Last Admin: 07/08/18 21:49 Dose: 5 mg - Labs Labs: 07/09/18 04:55 07/09/18 04:55 PT 11.6 Seconds (9.8-13.1) 06/25/18 00:40 INR 1.0 06/25/18 00:40 APTT 25.9 Seconds (25.6-37.1) 06/25/18 00:40 Assessment and Plan - Assessment and Plan (Free Text) Plan: All medical record entries made by the resident were at my direction. I have reviewed the chart and agree that the record accurately reflects my personal performance of the history, physical exam, and medical decision making.
[2018-07-08] MEDS: Enoxaparin 30 mg Syringe SC SCH (09:22)
[2018-07-09] MEDS: Piperacillin/Tazobact 3.375 GM in Sodium Chloride 0.9% 100 ML IVPB SCH ×3 (03:31→21:06)
[2018-07-09] MEDS: Simethicone 40 mg/0.6 ml Liquid (30 ml) PO SCH ×4 (03:31→21:53)
[2018-07-09 06:50] LABS: HEMOGLOBIN 8.7 g/dL (12.0-16.0); MEAN CELL VOLUME 86.9 fl (81.0-99.0); MEAN CORPUSCULAR HEMOGLOBIN 28.9 pg (27.0-31.0); MEAN CORPUSCULAR HGB CONC 33.3 g/dL (33.0-37.0); RBC 3.01 Mil/uL (3.80-5.20); RED CELL DISTRIBUTION WIDTH 13.5 % (11.5-14.5); WHITE BLOOD COUNT 7.4 K/uL (4.8-10.8)
[2018-07-09 07:07] LABS: BLOOD UREA NITROGEN 4 mg/dl (7-17); CALCIUM 7.9 mg/dL (8.4-10.2); GFR NON-AFRICAN AMERICAN > 60
[2018-07-09] MEDS: Enoxaparin 30 mg Syringe SC SCH (09:05)
--- NOTE | 2018-07-09 10:35 | CP.PCM.PN ---
<Mariely Lackey - Last Filed: 07/09/18 10:32> Subjective - Date & Time of Evaluation Date of Evaluation: 07/09/18 Time of Evaluation: 10:32 - Subjective Subjective: General Surgery: Bower 68 year old female patient seen and examined this AM. Resting comfortably, no acute events overnight. Patient admits to mild abdominal tenderness today. Family member present at bedside. + BM, + Flatus. Dressing c/d/i. Denies nausea/vomiting/fever/chills/chest pain. Objective - Vital Signs/Intake and Output Vital Signs (last 24 hours): Temp Pulse Resp BP Pulse Ox 98.0 F 67 20 133/73 98 07/09/18 08:59 07/09/18 09:06 07/09/18 08:59 07/09/18 09:06 07/09/18 08:59 - Medications Medications: Current Medications Acetaminophen (Tylenol 325mg Tab) 650 mg PO Q6 PRN PRN Reason: pain 1-3 or fever > 100.4 Alprazolam (Xanax) 0.5 mg PO PRN PRN PRN Reason: Anxiety Last Admin: 07/04/18 22:16 Dose: 0.5 mg Amlodipine Besylate (Norvasc) 5 mg PO DAILY [facility] Last Admin: 07/09/18 09:06 Dose: 5 mg Atorvastatin Calcium (Lipitor) 10 mg PO DAILY [facility] Last Admin: 07/09/18 09:04 Dose: 10 mg Carbamazepine (Tegretol-Xr) 200 mg PO DAILY [facility] Last Admin: 07/09/18 09:07 Dose: 200 mg Clotrimazole (Lotrimin 1% Cream) 1 applic TOP BID [facility] Last Admin: 07/09/18 09:05 Dose: 1 applic Enoxaparin Sodium (Lovenox) 30 mg SC DAILY [facility]; Protocol Last Admin: 07/09/18 09:05 Dose: 30 mg Famotidine (Pepcid) 20 mg IV Q12 [facility] Last Admin: 07/09/18 09:07 Dose: 20 mg Piperacillin Sod/Tazobactam (Sod 3.375 gm/ Sodium Chloride) 100 mls @ 100 mls/hr IVPB Q6 [facility]; Protocol Last Admin: 07/09/18 09:08 Dose: 100 mls/hr Ketorolac Tromethamine (Toradol) 15 mg IVP Q6 PRN PRN Reason: Pain, severe (8-10) Meclizine HCl (Antivert) 25 mg PO DAILY [facility] Last Admin: 07/09/18 09:04 Dose: 25 mg Ondansetron HCl (Zofran Inj) 4 mg IVP Q4 PRN PRN Reason: Nausea/Vomiting Last Admin: 07/05/18 11:35 Dose: 4 mg Phenol/Menthol (Phenaseptic 1.4% Throat [place]) 1 spry MT Q2 PRN PRN Reason: Sore Throat Last Admin: 06/30/18 10:06 Dose: 1 spr Simethicone (Mylicon Liq) 40 mg PO Q6 [facility] Last Admin: 07/09/18 09:06 Dose: 40 mg Tramadol HCl (Ultram) 50 mg PO Q4 PRN PRN Reason: Pain, moderate (4-7) Zolpidem Tartrate (Ambien) 5 mg PO HS PRN PRN Reason: Insomnia Last Admin: 07/08/18 21:49 Dose: 5 mg - Labs Labs: 07/09/18 04:55 07/09/18 04:55 PT 11.6 Seconds (9.8-13.1) 06/25/18 00:40 INR 1.0 06/25/18 00:40 APTT 25.9 Seconds (25.6-37.1) 06/25/18 00:40 - Constitutional Appears: Non-toxic, No Acute Distress - Head Exam Head Exam: ATRAUMATIC, NORMOCEPHALIC - Eye Exam Eye Exam: Normal appearance Pupil Exam: NORMAL ACCOMODATION - ENT Exam ENT Exam: Mucous Membranes Moist - Respiratory Exam Respiratory Exam: NORMAL BREATHING PATTERN - Cardiovascular Exam Cardiovascular Exam: REGULAR RHYTHM - GI/Abdominal Exam GI & Abdominal Exam: Soft Additional comments: Surgical incisions clean, dry, intact. [place] intact to surgical incision, with inferior aspect opened to allow for drainage Serous drainage appreciated from inferior aspect at this time No purulence, no erythema, no malodor, no clinical signs of infection Assessment and Plan - Assessment and Plan (Free Text) Assessment: 68F s/p diagnostic laparoscopy, extensive laparoscopic enterolysis, exploratory laparotomy with small bowel resection and primary anastomosis POD#12 Plan: - regular diet - pain control - IV abx, Zosyn - Dressing changed at bedside - OOB to chair and ambulation - Replete electrolytes PRN - PT - Further recs per Dr. Elliott, PGY 1 <Fortunato Vallejo N - Last Filed: 07/09/18 14:49> Objective - Vital Signs/Intake and Output Vital Signs (last 24 hours): Temp Pulse Resp BP Pulse Ox 98.0 F 67 20 133/73 98 07/09/18 08:59 07/09/18 09:06 07/09/18 08:59 07/09/18 09:06 07/09/18 08:59 - Medications Medications: Current Medications Acetaminophen (Tylenol 325mg Tab) 650 mg PO Q6 PRN PRN Reason: pain 1-3 or fever > 100.4 Alprazolam (Xanax) 0.5 mg PO PRN PRN PRN Reason: Anxiety Last Admin: 07/04/18 22:16 Dose: 0.5 mg Amlodipine Besylate (Norvasc) 5 mg PO DAILY [facility] Last Admin: 07/09/18 09:06 Dose: 5 mg Atorvastatin Calcium (Lipitor) 10 mg PO DAILY [facility] Last Admin: 07/09/18 09:04 Dose: 10 mg Carbamazepine (Tegretol-Xr) 200 mg PO DAILY [facility] Last Admin: 07/09/18 09:07 Dose: 200 mg Clotrimazole (Lotrimin 1% Cream) 1 applic TOP BID [facility] Last Admin: 07/09/18 09:05 Dose: 1 applic Enoxaparin Sodium (Lovenox) 30 mg SC DAILY [facility]; Protocol Last Admin: 07/09/18 09:05 Dose: 30 mg Famotidine (Pepcid) 20 mg IV Q12 [facility] Last Admin: 07/09/18 09:07 Dose: 20 mg Piperacillin Sod/Tazobactam (Sod 3.375 gm/ Sodium Chloride) 100 mls @ 100 mls/hr IVPB Q6 [facility]; Protocol Last Admin: 07/09/18 09:08 Dose: 100 mls/hr Potassium Chloride (Potassium Chloride 20 Meq/100 Ml) 100 mls @ 50 mls/hr IVPB Q2 [facility] Stop: 07/09/18 15:59 Last Admin: 07/09/18 14:44 Dose: 50 mls/hr Ketorolac Tromethamine (Toradol) 15 mg IVP Q6 PRN PRN Reason: Pain, severe (8-10) Meclizine HCl (Antivert) 25 mg PO DAILY [facility] Last Admin: 07/09/18 09:04 Dose: 25 mg Ondansetron HCl (Zofran Inj) 4 mg IVP Q4 PRN PRN Reason: Nausea/Vomiting Last Admin: 07/05/18 11:35 Dose: 4 mg Phenol/Menthol (Phenaseptic 1.4% Throat [place]) 1 spry MT Q2 PRN PRN Reason: Sore Throat Last Admin: 06/30/18 10:06 Dose: 1 spr Simethicone (Mylicon Liq) 40 mg PO Q6 [facility] Last Admin: 07/09/18 09:06 Dose: 40 mg Spironolactone (Aldactone) 25 mg PO BID [facility] Last Admin: 07/09/18 14:43 Dose: 25 mg Tramadol HCl (Ultram) 50 mg PO Q4 PRN PRN Reason: Pain, moderate (4-7) Zolpidem Tartrate (Ambien) 5 mg PO HS PRN PRN Reason: Insomnia Last Admin: 07/08/18 21:49 Dose: 5 mg - Labs Labs: 07/09/18 04:55 07/09/18 04:55 PT 11.6 Seconds (9.8-13.1) 06/25/18 00:40 INR 1.0 06/25/18 00:40 APTT 25.9 Seconds (25.6-37.1) 06/25/18 00:40 Assessment and Plan - Assessment and Plan (Free Text) Plan: All medical record entries made by the resident were at my direction. I have reviewed the chart and agree that the record accurately reflects my personal performance of the history, physical exam, and medical decision making. patient to be discharged with [facility] for wound care
--- NOTE | 2018-07-09 14:10 | CP.PCM.PN ---
Subjective - Date & Time of Evaluation Date of Evaluation: 07/09/18 Time of Evaluation: 08:00 - Subjective Subjective: NAD NO NEW COMPLAINTS SEEN ON ROUNDS LABS REVIEWED ORDERS SIGNED Objective - Vital Signs/Intake and Output Vital Signs (last 24 hours): Temp Pulse Resp BP Pulse Ox 98.0 F 67 20 133/73 98 07/09/18 08:59 07/09/18 09:06 07/09/18 08:59 07/09/18 09:06 07/09/18 08:59 - Medications Medications: Current Medications Acetaminophen (Tylenol 325mg Tab) 650 mg PO Q6 PRN PRN Reason: pain 1-3 or fever > 100.4 Alprazolam (Xanax) 0.5 mg PO PRN PRN PRN Reason: Anxiety Last Admin: 07/04/18 22:16 Dose: 0.5 mg Amlodipine Besylate (Norvasc) 5 mg PO DAILY [facility] Last Admin: 07/09/18 09:06 Dose: 5 mg Atorvastatin Calcium (Lipitor) 10 mg PO DAILY [facility] Last Admin: 07/09/18 09:04 Dose: 10 mg Carbamazepine (Tegretol-Xr) 200 mg PO DAILY [facility] Last Admin: 07/09/18 09:07 Dose: 200 mg Clotrimazole (Lotrimin 1% Cream) 1 applic TOP BID [facility] Last Admin: 07/09/18 09:05 Dose: 1 applic Enoxaparin Sodium (Lovenox) 30 mg SC DAILY [facility]; Protocol Last Admin: 07/09/18 09:05 Dose: 30 mg Famotidine (Pepcid) 20 mg IV Q12 [facility] Last Admin: 07/09/18 09:07 Dose: 20 mg Piperacillin Sod/Tazobactam (Sod 3.375 gm/ Sodium Chloride) 100 mls @ 100 mls/hr IVPB Q6 [facility]; Protocol Last Admin: 07/09/18 09:08 Dose: 100 mls/hr Potassium Chloride (Potassium Chloride 20 Meq/100 Ml) 100 mls @ 50 mls/hr IVPB Q2 [facility] Stop: 07/09/18 15:59 Ketorolac Tromethamine (Toradol) 15 mg IVP Q6 PRN PRN Reason: Pain, severe (8-10) Meclizine HCl (Antivert) 25 mg PO DAILY [facility] Last Admin: 07/09/18 09:04 Dose: 25 mg Ondansetron HCl (Zofran Inj) 4 mg IVP Q4 PRN PRN Reason: Nausea/Vomiting Last Admin: 07/05/18 11:35 Dose: 4 mg Phenol/Menthol (Phenaseptic 1.4% Throat [place]) 1 spry MT Q2 PRN PRN Reason: Sore Throat Last Admin: 06/30/18 10:06 Dose: 1 spr Simethicone (Mylicon Liq) 40 mg PO Q6 [facility] Last Admin: 07/09/18 09:06 Dose: 40 mg Spironolactone (Aldactone) 25 mg PO BID [facility] Tramadol HCl (Ultram) 50 mg PO Q4 PRN PRN Reason: Pain, moderate (4-7) Zolpidem Tartrate (Ambien) 5 mg PO HS PRN PRN Reason: Insomnia Last Admin: 07/08/18 21:49 Dose: 5 mg - Labs Labs: 07/09/18 04:55 07/09/18 04:55 PT 11.6 Seconds (9.8-13.1) 06/25/18 00:40 INR 1.0 06/25/18 00:40 APTT 25.9 Seconds (25.6-37.1) 06/25/18 00:40 - Constitutional Appears: Non-toxic, No Acute Distress, Chronically Ill - Head Exam Head Exam: ATRAUMATIC, NORMAL INSPECTION, NORMOCEPHALIC - Eye Exam Eye Exam: EOMI, Normal appearance, PERRL Pupil Exam: NORMAL ACCOMODATION, PERRL - ENT Exam ENT Exam: Mucous Membranes Moist, Normal Exam - Neck Exam Neck Exam: Full ROM, Normal Inspection. absent: Lymphadenopathy - Respiratory Exam Respiratory Exam: Clear to Ausculation Bilateral, NORMAL BREATHING PATTERN - Cardiovascular Exam Cardiovascular Exam: REGULAR RHYTHM, +S1, +S2. absent: Murmur - GI/Abdominal Exam GI & Abdominal Exam: Distended, Soft, Normal Bowel Sounds. absent: Tenderness Additional comments: WOUND HEALING - Rectal Exam Rectal Exam: Deferred - Exam Exam: NORMAL INSPECTION - Extremities Exam Extremities Exam: Full ROM, Normal Capillary Refill, Normal Inspection. absent: Joint Swelling, Pedal Edema - Back Exam Back Exam: NORMAL INSPECTION - Neurological Exam Neurological Exam: Alert, Awake, CN II-XII Intact, Normal Gait, Oriented x3 - Psychiatric Exam Psychiatric exam: Normal Affect, Normal Mood - Skin Skin Exam: Dry, Intact, Normal Color, Warm Assessment and Plan (1) Asthma Status: Acute (2) Small bowel obstruction Status: Acute (3) Small bowel obstruction, partial Status: Acute (4) Small bowel obstruction, partial Status: Acute (5) Intermittent small bowel obstruction Status: Acute - Assessment and Plan (Free Text) Assessment: CONT RX PER PRIMARY TEAM POSSIBLE D/C
[2018-07-09] MEDS: Potassium Chloride 20 mEq 100 ML IVPB SCH ×2 (14:44→16:49)
[2018-07-10] MEDS ORDERED: Bismuth Subsalicylate 262 mg Chew Tab PO ONE (01:27)
[2018-07-10] MEDS: Piperacillin/Tazobact 3.375 GM in Sodium Chloride 0.9% 100 ML IVPB SCH ×3 (04:33→16:30)
[2018-07-10] MEDS: Simethicone 40 mg/0.6 ml Liquid (30 ml) PO SCH ×4 (04:36→21:04)
[2018-07-10 07:02] LABS: BASO # 0.1 K/uL (0.0-0.2); BASO % 0.5 % (0.0-2.0); EOS # 0.2 K/uL (0.0-0.7); EOS % 1.2 % (0.0-4.0); HEMOGLOBIN 9.4 g/dL (12.0-16.0); LYMPH # 1.2 K/uL (1.0-4.3); LYMPH % 9.7 % (20.0-40.0); MEAN CELL VOLUME 86.6 fl (81.0-99.0); MEAN CORPUSCULAR HEMOGLOBIN 28.3 pg (27.0-31.0); MEAN CORPUSCULAR HGB CONC 32.7 g/dL (33.0-37.0); MEAN PLATELET VOLUME 8.5 fl (7.2-11.7); MONO # 0.8 K/uL (0.0-0.8); MONO % 6.7 % (0.0-10.0); NEUT % 81.9 % (50.0-75.0); PLATELET COUNT 507 K/uL (130-400); RED CELL DISTRIBUTION WIDTH 13.6 % (11.5-14.5)
[2018-07-10 07:14] LABS: WHITE BLOOD COUNT 12.2 K/uL (4.8-10.8)
[2018-07-10 07:16] LABS: ALB/GLOB RATIO 1.1 (1.0-2.1); ALBUMIN 3.4 g/dL (3.5-5.0); ALT/SGPT 42 U/L (9-52); AST/SGOT 59 U/L (14-36); BLOOD UREA NITROGEN 4 mg/dl (7-17); CALCIUM 9.1 mg/dL (8.4-10.2); GFR NON-AFRICAN AMERICAN > 60
[2018-07-10] MEDS: Enoxaparin 30 mg Syringe SC SCH (08:42)
[2018-07-10] MEDS ORDERED: Magnesium Hydroxide Susp 30 ml UD PO PRN (09:06)
--- NOTE | 2018-07-10 10:21 | CP.PCM.PN ---
<Ghada Kern - Last Filed: 07/10/18 18:50> Subjective - Date & Time of Evaluation Date of Evaluation: 07/10/18 Time of Evaluation: 07:55 - Subjective Subjective: Surgery: Bower Patient had 1 episode n/v overnight. improved with zofran, +flatus, decreased stool caliber d/t straining and feels constipated. Objective - Vital Signs/Intake and Output Vital Signs (last 24 hours): Temp Pulse Resp BP Pulse Ox 98.2 F 68 18 125/73 96 07/10/18 08:45 07/10/18 08:45 07/10/18 08:45 07/10/18 08:45 07/10/18 08:45 - Medications Medications: Current Medications Acetaminophen (Tylenol 325mg Tab) 650 mg PO Q6 PRN PRN Reason: pain 1-3 or fever > 100.4 Alprazolam (Xanax) 0.5 mg PO PRN PRN PRN Reason: Anxiety Last Admin: 07/09/18 21:57 Dose: 0.5 mg Amlodipine Besylate (Norvasc) 5 mg PO DAILY [facility] Last Admin: 07/10/18 08:43 Dose: 5 mg Atorvastatin Calcium (Lipitor) 10 mg PO DAILY [facility] Last Admin: 07/10/18 08:42 Dose: 10 mg Carbamazepine (Tegretol-Xr) 200 mg PO DAILY [facility] Last Admin: 07/10/18 08:44 Dose: 200 mg Clotrimazole (Lotrimin 1% Cream) 1 applic TOP BID [facility] Last Admin: 07/10/18 08:42 Dose: 1 applic Docusate Sodium (Colace) 100 mg PO BID [facility] Last Admin: 07/10/18 08:42 Dose: 100 mg Enoxaparin Sodium (Lovenox) 30 mg SC DAILY [facility]; Protocol Last Admin: 07/10/18 08:42 Dose: 30 mg Famotidine (Pepcid) 20 mg IV Q12 [facility] Last Admin: 07/10/18 08:58 Dose: 20 mg Piperacillin Sod/Tazobactam (Sod 3.375 gm/ Sodium Chloride) 100 mls @ 100 mls/hr IVPB Q6 [facility]; Protocol Last Admin: 07/10/18 09:02 Dose: 100 mls/hr Ketorolac Tromethamine (Toradol) 15 mg IVP Q6 PRN PRN Reason: Pain, severe (8-10) Last Admin: 07/10/18 05:49 Dose: 15 mg Magnesium Hydroxide (Milk Of Magnesia) 30 ml PO DAILY PRN PRN Reason: Constipation Meclizine HCl (Antivert) 25 mg PO DAILY [facility] Last Admin: 07/10/18 08:41 Dose: 25 mg Ondansetron HCl (Zofran Inj) 4 mg IVP Q4 PRN PRN Reason: Nausea/Vomiting Last Admin: 07/10/18 08:59 Dose: 4 mg Phenol/Menthol (Phenaseptic 1.4% Throat [place]) 1 spry MT Q2 PRN PRN Reason: Sore Throat Last Admin: 06/30/18 10:06 Dose: 1 spr Potassium Chloride (Potassium Chloride Oral Soln) 40 meq PO DAILY [facility] Sennosides (Senokot Tab) 8.6 mg PO BID [facility] Last Admin: 07/10/18 08:45 Dose: 8.6 mg Simethicone (Mylicon Liq) 40 mg PO Q6 [facility] Last Admin: 07/10/18 09:02 Dose: 1 mg Spironolactone (Aldactone) 25 mg PO BID [facility] Last Admin: 07/10/18 08:41 Dose: 25 mg Tramadol HCl (Ultram) 50 mg PO Q4 PRN PRN Reason: Pain, moderate (4-7) Zolpidem Tartrate (Ambien) 5 mg PO HS PRN PRN Reason: Insomnia Last Admin: 07/08/18 21:49 Dose: 5 mg - Labs Labs: 07/10/18 06:30 07/10/18 06:30 PT 11.6 Seconds (9.8-13.1) 06/25/18 00:40 INR 1.0 06/25/18 00:40 APTT 25.9 Seconds (25.6-37.1) 06/25/18 00:40 - Constitutional Appears: Well, Non-toxic, No Acute Distress - Head Exam Head Exam: ATRAUMATIC, NORMOCEPHALIC - Eye Exam Eye Exam: EOMI - ENT Exam ENT Exam: Mucous Membranes Moist - Respiratory Exam Respiratory Exam: NORMAL BREATHING PATTERN - Cardiovascular Exam Cardiovascular Exam: REGULAR RHYTHM - GI/Abdominal Exam GI & Abdominal Exam: Soft. absent: Guarding, Tenderness Additional comments: incision cean with small amount of drainage on gauze. dressing changed at bedside - Extremities Exam Extremities Exam: absent: Calf Tenderness - Neurological Exam Neurological Exam: Alert, Awake, Oriented x3 - Psychiatric Exam Psychiatric exam: Normal Affect, Normal Mood - Skin Skin Exam: Dry, Intact, Normal Color, Warm Assessment and Plan - Assessment and Plan (Free Text) Assessment: 68F s/p diagnostic laparoscopy, extensive laparoscopic enterolysis, exploratory laparotomy with small bowel resection and primary anastomosis POD#12 Plan: - regular diet - Pain control PRN - antiemetics PRN - KUB - Milk of magnesia - IV abx - monitor bowel function - IS, OOB to chair and ambulation - Replete electrolytes PRN - PT - Further recs per Dr. Elliott, PGY 1 <Fortunato Vallejo N - Last Filed: 07/11/18 08:24> Objective - Vital Signs/Intake and Output Vital Signs (last 24 hours): Temp Pulse Resp BP Pulse Ox 98.2 F 59 L 20 119/75 97 07/11/18 00:56 07/11/18 00:56 07/11/18 00:56 07/11/18 00:56 07/11/18 00:56 - Medications Medications: Current Medications Acetaminophen (Tylenol 325mg Tab) 650 mg PO Q6 PRN PRN Reason: pain 1-3 or fever > 100.4 Alprazolam (Xanax) 0.5 mg PO PRN PRN PRN Reason: Anxiety Last Admin: 07/09/18 21:57 Dose: 0.5 mg Amlodipine Besylate (Norvasc) 5 mg PO DAILY [facility] Last Admin: 07/10/18 08:43 Dose: 5 mg Atorvastatin Calcium (Lipitor) 10 mg PO DAILY [facility] Last Admin: 07/10/18 08:42 Dose: 10 mg Carbamazepine (Tegretol-Xr) 200 mg PO DAILY [facility] Last Admin: 07/10/18 08:44 Dose: 200 mg Clotrimazole (Lotrimin 1% Cream) 1 applic TOP BID [facility] Last Admin: 07/10/18 16:28 Dose: 1 applic Docusate Sodium (Colace) 100 mg PO BID [facility] Last Admin: 07/10/18 16:28 Dose: 100 mg Enoxaparin Sodium (Lovenox) 30 mg SC DAILY [facility]; Protocol Last Admin: 07/10/18 08:42 Dose: 30 mg Famotidine (Pepcid) 20 mg IV Q12 [facility] Last Admin: 07/10/18 21:10 Dose: 20 mg Ketorolac Tromethamine (Toradol) 15 mg IVP Q6 PRN PRN Reason: Pain, severe (8-10) Last Admin: 07/10/18 05:49 Dose: 15 mg Magnesium Hydroxide (Milk Of Magnesia) 30 ml PO DAILY PRN PRN Reason: Constipation Meclizine HCl (Antivert) 25 mg PO DAILY [facility] Last Admin: 07/10/18 08:41 Dose: 25 mg Ondansetron HCl (Zofran Inj) 4 mg IVP Q4 PRN PRN Reason: Nausea/Vomiting Last Admin: 07/10/18 08:59 Dose: 4 mg Phenol/Menthol (Phenaseptic 1.4% Throat [place]) 1 spry MT Q2 PRN PRN Reason: Sore Throat Last Admin: 06/30/18 10:06 Dose: 1 spr Potassium Chloride (Potassium Chloride Oral Soln) 40 meq PO DAILY [facility] Last Admin: 07/10/18 12:58 Dose: 40 meq Sennosides (Senokot Tab) 8.6 mg PO BID [facility] Last Admin: 07/10/18 16:29 Dose: 8.6 mg Simethicone (Mylicon Liq) 40 mg PO Q6 [facility] Last Admin: 07/11/18 04:19 Dose: 40 mg Spironolactone (Aldactone) 25 mg PO BID [facility] Last Admin: 07/10/18 16:28 Dose: 25 mg Tramadol HCl (Ultram) 50 mg PO Q4 PRN PRN Reason: Pain, moderate (4-7) Zolpidem Tartrate (Ambien) 5 mg PO HS PRN PRN Reason: Insomnia Last Admin: 07/08/18 21:49 Dose: 5 mg - Labs Labs: 07/11/18 04:50 07/10/18 06:30 PT 11.6 Seconds (9.8-13.1) 06/25/18 00:40 INR 1.0 06/25/18 00:40 APTT 25.9 Seconds (25.6-37.1) 06/25/18 00:40 Assessment and Plan - Assessment and Plan (Free Text) Plan: All medical record entries made by the resident were at my direction. I have reviewed the chart and agree that the record accurately reflects my personal performance of the history, physical exam, and medical decision making.
--- NOTE | 2018-07-10 10:52 | RAD ---
Date of service: 07/10/2018 HISTORY: vomiting COMPARISON: Abdomen KUB 07/02/2018. TECHNIQUE: 1 view obtained. FINDINGS: BOWEL: Dilatation of bowel loops in the left upper quadrant and central central abdomen appear to have diminished slightly in the interval the moderate distention remains. Oral contrast material is identified in the descending colon. Surgical anastomotic type sutures are seen at the right lower quadrant/lateral right flank once again with prior drainage tubing now removed. Overall pattern remains like suggestive of diminishing postoperative ileus. Intermittent or partial small bowel obstruction not favored but not excluded once again. BONES: Degenerative lumbar spine, sacroiliac and hip joint changes reiterated. OTHER FINDINGS: None. IMPRESSION: Mildly improved likely postoperative ileus with intermittent or partial distal SBO less likely once again. Right lower quadrant/flank drainage tubing now removed apparently. Limited oral contrast identified left hemicolon.
[2018-07-10 12:18] LABS: LYMPHOCYTE 13 % (20-50); MONOCYTE 9 % (0-10); NEUTROPHIL 78 % (42-75); PLATELET ESTIMATE INCREASED (NORMAL); TOTAL CELLS COUNTED 100
[2018-07-10 12:19] LABS: HYPOCHROMIC MODERATE; OVALOCYTES SLIGHT
[2018-07-10] MEDS: Potassium Chloride 20 mEq/15 ml LIQ UD PO SCH (12:58)
--- NOTE | 2018-07-10 17:39 | CP.PCM.PN ---
Subjective - Date & Time of Evaluation Date of Evaluation: 07/10/18 Time of Evaluation: 08:00 - Subjective Subjective: afeb nad had vomiting last night none now belly soft Objective - Vital Signs/Intake and Output Vital Signs (last 24 hours): Temp Pulse Resp BP Pulse Ox 98 F 56 L 20 107/69 95 07/10/18 16:26 07/10/18 16:26 07/10/18 16:26 07/10/18 16:26 07/10/18 16:26 - Medications Medications: Current Medications Acetaminophen (Tylenol 325mg Tab) 650 mg PO Q6 PRN PRN Reason: pain 1-3 or fever > 100.4 Alprazolam (Xanax) 0.5 mg PO PRN PRN PRN Reason: Anxiety Last Admin: 07/09/18 21:57 Dose: 0.5 mg Amlodipine Besylate (Norvasc) 5 mg PO DAILY [facility] Last Admin: 07/10/18 08:43 Dose: 5 mg Atorvastatin Calcium (Lipitor) 10 mg PO DAILY [facility] Last Admin: 07/10/18 08:42 Dose: 10 mg Carbamazepine (Tegretol-Xr) 200 mg PO DAILY [facility] Last Admin: 07/10/18 08:44 Dose: 200 mg Clotrimazole (Lotrimin 1% Cream) 1 applic TOP BID [facility] Last Admin: 07/10/18 16:28 Dose: 1 applic Docusate Sodium (Colace) 100 mg PO BID [facility] Last Admin: 07/10/18 16:28 Dose: 100 mg Enoxaparin Sodium (Lovenox) 30 mg SC DAILY [facility]; Protocol Last Admin: 07/10/18 08:42 Dose: 30 mg Famotidine (Pepcid) 20 mg IV Q12 [facility] Last Admin: 07/10/18 08:58 Dose: 20 mg Piperacillin Sod/Tazobactam (Sod 3.375 gm/ Sodium Chloride) 100 mls @ 100 mls/hr IVPB Q6 [facility]; Protocol Last Admin: 07/10/18 16:30 Dose: 100 mls/hr Ketorolac Tromethamine (Toradol) 15 mg IVP Q6 PRN PRN Reason: Pain, severe (8-10) Last Admin: 07/10/18 05:49 Dose: 15 mg Magnesium Hydroxide (Milk Of Magnesia) 30 ml PO DAILY PRN PRN Reason: Constipation Meclizine HCl (Antivert) 25 mg PO DAILY [facility] Last Admin: 07/10/18 08:41 Dose: 25 mg Ondansetron HCl (Zofran Inj) 4 mg IVP Q4 PRN PRN Reason: Nausea/Vomiting Last Admin: 07/10/18 08:59 Dose: 4 mg Phenol/Menthol (Phenaseptic 1.4% Throat [place]) 1 spry MT Q2 PRN PRN Reason: Sore Throat Last Admin: 06/30/18 10:06 Dose: 1 spr Potassium Chloride (Potassium Chloride Oral Soln) 40 meq PO DAILY [facility] Last Admin: 07/10/18 12:58 Dose: 40 meq Sennosides (Senokot Tab) 8.6 mg PO BID [facility] Last Admin: 07/10/18 16:29 Dose: 8.6 mg Simethicone (Mylicon Liq) 40 mg PO Q6 [facility] Last Admin: 07/10/18 16:27 Dose: 40 mg Spironolactone (Aldactone) 25 mg PO BID [facility] Last Admin: 07/10/18 16:28 Dose: 25 mg Tramadol HCl (Ultram) 50 mg PO Q4 PRN PRN Reason: Pain, moderate (4-7) Zolpidem Tartrate (Ambien) 5 mg PO HS PRN PRN Reason: Insomnia Last Admin: 07/08/18 21:49 Dose: 5 mg - Labs Labs: 07/10/18 06:30 07/10/18 06:30 PT 11.6 Seconds (9.8-13.1) 06/25/18 00:40 INR 1.0 06/25/18 00:40 APTT 25.9 Seconds (25.6-37.1) 06/25/18 00:40 - Constitutional Appears: Non-toxic, Chronically Ill - Head Exam Head Exam: NORMOCEPHALIC - Eye Exam Eye Exam: absent: Scleral icterus - ENT Exam ENT Exam: Mucous Membranes Dry - Neck Exam Neck Exam: absent: Lymphadenopathy - Respiratory Exam Respiratory Exam: Decreased Breath Sounds - Cardiovascular Exam Cardiovascular Exam: REGULAR RHYTHM - GI/Abdominal Exam GI & Abdominal Exam: Distended - Rectal Exam Rectal Exam: Deferred - Exam Exam: NORMAL INSPECTION - Extremities Exam Extremities Exam: absent: Pedal Edema - Back Exam Back Exam: absent: CVA tenderness (L), CVA tenderness (R) - Neurological Exam Neurological Exam: Alert, Awake, Oriented x3 Assessment and Plan (1) Asthma Status: Acute (2) Small bowel obstruction Status: Acute (3) Small bowel obstruction, partial Status: Acute (4) Small bowel obstruction, partial Status: Acute (5) Intermittent small bowel obstruction Status: Acute - Assessment and Plan (Free Text) Assessment: improving d/c iv antibiotics check cbc in am
--- NOTE | 2018-07-10 23:05 | CP.PCM.PN ---
Subjective - Date & Time of Evaluation Date of Evaluation: 07/08/18 Time of Evaluation: 10:00 - Subjective Subjective: Pt seen and assessed at bedside. Pt reports feeling better, abdominal discomfort has been improving. Subjective Review of Systems: Reviewed and no additional remarkable complaints except occasional abdominal pain. Objective Appears: Anxious, Non-toxic, No Acute Distress. Head Exam: NORMAL INSPECTION, normocephalic. Eye Exam: Normal eye inspection, EOMI, PERRLA. Respiratory Exam: NORMAL BREATHING PATTERN, breath sounds clear bilaterally. Cardiovascular Exam: +S1, +S2. RRR. GI & Abdominal Exam: Soft, mildly tender at surgical site, non-distended. Neurological Exam: Alert, Awake, Oriented x3. Psychiatric exam: Normal mood. Calm and cooperative. Skin exam: Normal color, warm, dry. Assessment/Impression/Plan: 1.) Partial Small Bowel Obstruction -Pt reports being able to pass gas at this time. -Abdominal discomfort improving. -consults input appreciated. -Diet advanced. -Monitor bowel function. -For possible discharge tomorrow. Objective - Vital Signs/Intake and Output Vital Signs (last 24 hours): Temp Pulse Resp BP Pulse Ox 98 F 56 L 20 107/69 95 07/10/18 16:26 07/10/18 16:26 07/10/18 16:26 07/10/18 16:26 07/10/18 16:26 - Medications Medications: Current Medications Acetaminophen (Tylenol 325mg Tab) 650 mg PO Q6 PRN PRN Reason: pain 1-3 or fever > 100.4 Alprazolam (Xanax) 0.5 mg PO PRN PRN PRN Reason: Anxiety Last Admin: 07/09/18 21:57 Dose: 0.5 mg Amlodipine Besylate (Norvasc) 5 mg PO DAILY [facility] Last Admin: 07/10/18 08:43 Dose: 5 mg Atorvastatin Calcium (Lipitor) 10 mg PO DAILY [facility] Last Admin: 07/10/18 08:42 Dose: 10 mg Carbamazepine (Tegretol-Xr) 200 mg PO DAILY [facility] Last Admin: 07/10/18 08:44 Dose: 200 mg Clotrimazole (Lotrimin 1% Cream) 1 applic TOP BID [facility] Last Admin: 07/10/18 16:28 Dose: 1 applic Docusate Sodium (Colace) 100 mg PO BID [facility] Last Admin: 07/10/18 16:28 Dose: 100 mg Enoxaparin Sodium (Lovenox) 30 mg SC DAILY [facility]; Protocol Last Admin: 07/10/18 08:42 Dose: 30 mg Famotidine (Pepcid) 20 mg IV Q12 [facility] Last Admin: 07/10/18 21:10 Dose: 20 mg Ketorolac Tromethamine (Toradol) 15 mg IVP Q6 PRN PRN Reason: Pain, severe (8-10) Last Admin: 07/10/18 05:49 Dose: 15 mg Magnesium Hydroxide (Milk Of Magnesia) 30 ml PO DAILY PRN PRN Reason: Constipation Meclizine HCl (Antivert) 25 mg PO DAILY [facility] Last Admin: 07/10/18 08:41 Dose: 25 mg Ondansetron HCl (Zofran Inj) 4 mg IVP Q4 PRN PRN Reason: Nausea/Vomiting Last Admin: 07/10/18 08:59 Dose: 4 mg Phenol/Menthol (Phenaseptic 1.4% Throat [place]) 1 spry MT Q2 PRN PRN Reason: Sore Throat Last Admin: 06/30/18 10:06 Dose: 1 spr Potassium Chloride (Potassium Chloride Oral Soln) 40 meq PO DAILY [facility] Last Admin: 07/10/18 12:58 Dose: 40 meq Sennosides (Senokot Tab) 8.6 mg PO BID [facility] Last Admin: 07/10/18 16:29 Dose: 8.6 mg Simethicone (Mylicon Liq) 40 mg PO Q6 [facility] Last Admin: 07/10/18 21:04 Dose: 40 mg Spironolactone (Aldactone) 25 mg PO BID [facility] Last Admin: 07/10/18 16:28 Dose: 25 mg Tramadol HCl (Ultram) 50 mg PO Q4 PRN PRN Reason: Pain, moderate (4-7) Zolpidem Tartrate (Ambien) 5 mg PO HS PRN PRN Reason: Insomnia Last Admin: 07/08/18 21:49 Dose: 5 mg - Labs Labs: 07/10/18 06:30 07/10/18 06:30 PT 11.6 Seconds (9.8-13.1) 06/25/18 00:40 INR 1.0 06/25/18 00:40 APTT 25.9 Seconds (25.6-37.1) 06/25/18 00:40 Assessment and Plan (1) Small bowel obstruction, partial Status: Acute
--- NOTE | 2018-07-10 23:11 | CP.PCM.PN ---
Subjective - Date & Time of Evaluation Date of Evaluation: 07/09/18 Time of Evaluation: 13:00 - Subjective Subjective: Pt seen and assessed at bedside. Pt reports being unable to produce a bowel movement at this time and feels as if "the food is not going down". No vomiting episodes noted at present, still reports passing gas. Subjective Review of Systems: Reviewed and no additional remarkable complaints except occasional abdominal pain, inability to pass a bowel movement. Objective Appears: Anxious, Non-toxic, No Acute Distress. Head Exam: NORMAL INSPECTION, normocephalic. Eye Exam: Normal eye inspection, EOMI, PERRLA. Respiratory Exam: NORMAL BREATHING PATTERN, breath sounds clear bilaterally. Cardiovascular Exam: +S1, +S2. RRR. GI & Abdominal Exam: Soft, mildly tender at surgical site, non-distended. Neurological Exam: Alert, Awake, Oriented x3. Psychiatric exam: Normal mood. Calm and cooperative. Skin exam: Normal color, warm, dry. Assessment/Impression/Plan: 1.) Partial Small Bowel Obstruction -Consider abdominal X-ray to r/o new obstruction. -Lactulose to help patient produce a BM. -consults input appreciated. -For now, switch back to liquids or NPO considering the possibility of new onset obstruction. -Monitor bowel function. Objective - Vital Signs/Intake and Output Vital Signs (last 24 hours): Temp Pulse Resp BP Pulse Ox 98 F 56 L 20 107/69 95 07/10/18 16:26 07/10/18 16:26 07/10/18 16:26 07/10/18 16:26 07/10/18 16:26 - Medications Medications: Current Medications Acetaminophen (Tylenol 325mg Tab) 650 mg PO Q6 PRN PRN Reason: pain 1-3 or fever > 100.4 Alprazolam (Xanax) 0.5 mg PO PRN PRN PRN Reason: Anxiety Last Admin: 07/09/18 21:57 Dose: 0.5 mg Amlodipine Besylate (Norvasc) 5 mg PO DAILY [facility] Last Admin: 07/10/18 08:43 Dose: 5 mg Atorvastatin Calcium (Lipitor) 10 mg PO DAILY [facility] Last Admin: 07/10/18 08:42 Dose: 10 mg Carbamazepine (Tegretol-Xr) 200 mg PO DAILY [facility] Last Admin: 07/10/18 08:44 Dose: 200 mg Clotrimazole (Lotrimin 1% Cream) 1 applic TOP BID [facility] Last Admin: 07/10/18 16:28 Dose: 1 applic Docusate Sodium (Colace) 100 mg PO BID [facility] Last Admin: 07/10/18 16:28 Dose: 100 mg Enoxaparin Sodium (Lovenox) 30 mg SC DAILY [facility]; Protocol Last Admin: 07/10/18 08:42 Dose: 30 mg Famotidine (Pepcid) 20 mg IV Q12 [facility] Last Admin: 07/10/18 21:10 Dose: 20 mg Ketorolac Tromethamine (Toradol) 15 mg IVP Q6 PRN PRN Reason: Pain, severe (8-10) Last Admin: 07/10/18 05:49 Dose: 15 mg Magnesium Hydroxide (Milk Of Magnesia) 30 ml PO DAILY PRN PRN Reason: Constipation Meclizine HCl (Antivert) 25 mg PO DAILY [facility] Last Admin: 07/10/18 08:41 Dose: 25 mg Ondansetron HCl (Zofran Inj) 4 mg IVP Q4 PRN PRN Reason: Nausea/Vomiting Last Admin: 07/10/18 08:59 Dose: 4 mg Phenol/Menthol (Phenaseptic 1.4% Throat [place]) 1 spry MT Q2 PRN PRN Reason: Sore Throat Last Admin: 06/30/18 10:06 Dose: 1 spr Potassium Chloride (Potassium Chloride Oral Soln) 40 meq PO DAILY [facility] Last Admin: 07/10/18 12:58 Dose: 40 meq Sennosides (Senokot Tab) 8.6 mg PO BID [facility] Last Admin: 07/10/18 16:29 Dose: 8.6 mg Simethicone (Mylicon Liq) 40 mg PO Q6 [facility] Last Admin: 07/10/18 21:04 Dose: 40 mg Spironolactone (Aldactone) 25 mg PO BID [facility] Last Admin: 07/10/18 16:28 Dose: 25 mg Tramadol HCl (Ultram) 50 mg PO Q4 PRN PRN Reason: Pain, moderate (4-7) Zolpidem Tartrate (Ambien) 5 mg PO HS PRN PRN Reason: Insomnia Last Admin: 07/08/18 21:49 Dose: 5 mg - Labs Labs: 07/10/18 06:30 07/10/18 06:30 PT 11.6 Seconds (9.8-13.1) 06/25/18 00:40 INR 1.0 06/25/18 00:40 APTT 25.9 Seconds (25.6-37.1) 06/25/18 00:40 Assessment and Plan (1) Small bowel obstruction, partial Status: Acute
[2018-07-11] MEDS: Simethicone 40 mg/0.6 ml Liquid (30 ml) PO SCH ×4 (04:19→21:27)
[2018-07-11 06:24] LABS: BASO # 0.1 K/uL (0.0-0.2); BASO % 1.3 % (0.0-2.0); EOS # 0.3 K/uL (0.0-0.7); EOS % 4.3 % (0.0-4.0); HEMOGLOBIN 8.6 g/dL (12.0-16.0); LYMPH # 2.2 K/uL (1.0-4.3); LYMPH % 30.2 % (20.0-40.0); MEAN CELL VOLUME 87.4 fl (81.0-99.0); MEAN CORPUSCULAR HGB CONC 33.2 g/dL (33.0-37.0); MEAN PLATELET VOLUME 9.3 fl (7.2-11.7); MONO # 1.1 K/uL (0.0-0.8); MONO % 14.7 % (0.0-10.0); NEUT # 3.7 K/uL (1.8-7.0); NEUT % 49.5 % (50.0-75.0); NRBC % 0.1 % (0.0-0.0); RBC 2.95 Mil/uL (3.80-5.20); RED CELL DISTRIBUTION WIDTH 13.6 % (11.5-14.5); WHITE BLOOD COUNT 7.4 K/uL (4.8-10.8)
--- NOTE | 2018-07-11 08:27 | CP.PCM.PN ---
Subjective - Date & Time of Evaluation Date of Evaluation: 07/11/18 Time of Evaluation: 08:47 - Subjective Subjective: General Surgery Note for [place] Patient seen and examined at bedside. No acute event overnight. Patient states pain has improved. Denies nausea/vomiting. She is passing flatus and having BMs. She is tolerating regular food. She states she is ready to go home but needs help with wound care. Objective - Vital Signs/Intake and Output Vital Signs (last 24 hours): Temp Pulse Resp BP Pulse Ox 98.2 F 59 L 20 119/75 97 07/11/18 00:56 07/11/18 00:56 07/11/18 00:56 07/11/18 00:56 07/11/18 00:56 - Medications Medications: Current Medications Acetaminophen (Tylenol 325mg Tab) 650 mg PO Q6 PRN PRN Reason: pain 1-3 or fever > 100.4 Alprazolam (Xanax) 0.5 mg PO PRN PRN PRN Reason: Anxiety Last Admin: 07/09/18 21:57 Dose: 0.5 mg Amlodipine Besylate (Norvasc) 5 mg PO DAILY [facility] Last Admin: 07/10/18 08:43 Dose: 5 mg Atorvastatin Calcium (Lipitor) 10 mg PO DAILY [facility] Last Admin: 07/10/18 08:42 Dose: 10 mg Carbamazepine (Tegretol-Xr) 200 mg PO DAILY [facility] Last Admin: 07/10/18 08:44 Dose: 200 mg Clotrimazole (Lotrimin 1% Cream) 1 applic TOP BID [facility] Last Admin: 07/10/18 16:28 Dose: 1 applic Docusate Sodium (Colace) 100 mg PO BID [facility] Last Admin: 07/10/18 16:28 Dose: 100 mg Enoxaparin Sodium (Lovenox) 30 mg SC DAILY [facility]; Protocol Last Admin: 07/10/18 08:42 Dose: 30 mg Famotidine (Pepcid) 20 mg IV Q12 [facility] Last Admin: 07/10/18 21:10 Dose: 20 mg Ketorolac Tromethamine (Toradol) 15 mg IVP Q6 PRN PRN Reason: Pain, severe (8-10) Last Admin: 07/10/18 05:49 Dose: 15 mg Magnesium Hydroxide (Milk Of Magnesia) 30 ml PO DAILY PRN PRN Reason: Constipation Meclizine HCl (Antivert) 25 mg PO DAILY [facility] Last Admin: 07/10/18 08:41 Dose: 25 mg Ondansetron HCl (Zofran Inj) 4 mg IVP Q4 PRN PRN Reason: Nausea/Vomiting Last Admin: 07/10/18 08:59 Dose: 4 mg Phenol/Menthol (Phenaseptic 1.4% Throat [place]) 1 spry MT Q2 PRN PRN Reason: Sore Throat Last Admin: 06/30/18 10:06 Dose: 1 spr Potassium Chloride (Potassium Chloride Oral Soln) 40 meq PO DAILY [facility] Last Admin: 07/10/18 12:58 Dose: 40 meq Sennosides (Senokot Tab) 8.6 mg PO BID [facility] Last Admin: 07/10/18 16:29 Dose: 8.6 mg Simethicone (Mylicon Liq) 40 mg PO Q6 [facility] Last Admin: 07/11/18 04:19 Dose: 40 mg Spironolactone (Aldactone) 25 mg PO BID [facility] Last Admin: 07/10/18 16:28 Dose: 25 mg Tramadol HCl (Ultram) 50 mg PO Q4 PRN PRN Reason: Pain, moderate (4-7) Zolpidem Tartrate (Ambien) 5 mg PO HS PRN PRN Reason: Insomnia Last Admin: 07/08/18 21:49 Dose: 5 mg - Labs Labs: 07/11/18 04:50 07/10/18 06:30 PT 11.6 Seconds (9.8-13.1) 06/25/18 00:40 INR 1.0 06/25/18 00:40 APTT 25.9 Seconds (25.6-37.1) 06/25/18 00:40 - Additional Findings Additional findings: - Constitutional Appears: Well, Non-toxic, No Acute Distress - Head Exam Head Exam: ATRAUMATIC, NORMOCEPHALIC - Eye Exam Eye Exam: EOMI - ENT Exam ENT Exam: Mucous Membranes Moist - Respiratory Exam Respiratory Exam: NORMAL BREATHING PATTERN - Cardiovascular Exam Cardiovascular Exam: REGULAR RHYTHM - GI/Abdominal Exam GI & Abdominal Exam: Soft. absent: Guarding, Tenderness Additional comments: incision open towards inferior portion,packed with gauze, dressing changed at bedside - Extremities Exam Extremities Exam: absent: Calf Tenderness - Neurological Exam Neurological Exam: Alert, Awake, Oriented x3 - Psychiatric Exam Psychiatric exam: Normal Affect, Normal Mood - Skin Skin Exam: Dry, Intact, Normal Color, Warm Assessment and Plan - Assessment and Plan (Free Text) Assessment: 68F s/p diagnostic laparoscopy, extensive laparoscopic enterolysis, exploratory laparotomy with small bowel resection and primary anastomosis POD#13 Plan: - regular diet - Pain control PRN - antiemetics PRN - Protonix/Pepcid - Carafate - monitor bowel function - IS, OOB to chair and ambulation - Replete electrolytes PRN - PT - Patient clear for discharge from surgical standpoint - Will need visiting nurse service for wound care if sons cannot help - Discussed with Dr. Strong PGY2
[2018-07-11] MEDS: Enoxaparin 30 mg Syringe SC SCH (08:38)
[2018-07-11] MEDS: Potassium Chloride 20 mEq/15 ml LIQ UD PO SCH (08:38)
[2018-07-11] MEDS ORDERED: Pantoprazole 40 mg EC Tab PO SCH (09:00)
--- NOTE | 2018-07-11 14:10 | CP.PCM.PN ---
Subjective - Date & Time of Evaluation Date of Evaluation: 07/11/18 Time of Evaluation: 07:00 - Subjective Subjective: seen and examined no new complaints labs reviewed orders signed Objective - Vital Signs/Intake and Output Vital Signs (last 24 hours): Temp Pulse Resp BP Pulse Ox 98.9 F 67 20 110/68 97 07/11/18 09:00 07/11/18 09:00 07/11/18 09:00 07/11/18 09:00 07/11/18 09:00 - Medications Medications: Current Medications Acetaminophen (Tylenol 325mg Tab) 650 mg PO Q6 PRN PRN Reason: pain 1-3 or fever > 100.4 Alprazolam (Xanax) 0.5 mg PO PRN PRN PRN Reason: Anxiety Last Admin: 07/09/18 21:57 Dose: 0.5 mg Amlodipine Besylate (Norvasc) 5 mg PO DAILY [facility] Last Admin: 07/11/18 08:40 Dose: 5 mg Atorvastatin Calcium (Lipitor) 10 mg PO DAILY [facility] Last Admin: 07/11/18 08:40 Dose: 10 mg Carbamazepine (Tegretol-Xr) 200 mg PO DAILY [facility] Last Admin: 07/11/18 09:49 Dose: 200 mg Clopidogrel Bisulfate (Plavix) 75 mg PO DAILY [facility] Last Admin: 07/11/18 14:04 Dose: 75 mg Clotrimazole (Lotrimin 1% Cream) 1 applic TOP BID [facility] Last Admin: 07/11/18 08:54 Dose: Not Given Docusate Sodium (Colace) 100 mg PO BID [facility] Last Admin: 07/11/18 08:39 Dose: 100 mg Enoxaparin Sodium (Lovenox) 30 mg SC DAILY [facility]; Protocol Last Admin: 07/11/18 08:38 Dose: 30 mg Famotidine (Pepcid) 20 mg PO BID [facility] Ketorolac Tromethamine (Toradol) 15 mg IVP Q6 PRN PRN Reason: Pain, severe (8-10) Last Admin: 07/10/18 05:49 Dose: 15 mg Magnesium Hydroxide (Milk Of Magnesia) 30 ml PO DAILY PRN PRN Reason: Constipation Meclizine HCl (Antivert) 25 mg PO DAILY [facility] Last Admin: 07/11/18 08:39 Dose: 25 mg Ondansetron HCl (Zofran Inj) 4 mg IVP Q4 PRN PRN Reason: Nausea/Vomiting Last Admin: 07/10/18 08:59 Dose: 4 mg Phenol/Menthol (Phenaseptic 1.4% Throat [place]) 1 spry MT Q2 PRN PRN Reason: Sore Throat Last Admin: 06/30/18 10:06 Dose: 1 spr Potassium Chloride (Potassium Chloride Oral Soln) 40 meq PO DAILY [facility] Last Admin: 07/11/18 08:38 Dose: 40 meq Sennosides (Senokot Tab) 8.6 mg PO BID [facility] Last Admin: 07/11/18 09:49 Dose: 8.6 mg Simethicone (Mylicon Liq) 40 mg PO Q6 [facility] Last Admin: 07/11/18 08:59 Dose: 40 mg Spironolactone (Aldactone) 25 mg PO BID [facility] Last Admin: 07/11/18 08:40 Dose: 25 mg Sucralfate (Carafate Tab) 1 gm PO QID [facility] Last Admin: 07/11/18 14:01 Dose: 1 gm Tramadol HCl (Ultram) 50 mg PO Q4 PRN PRN Reason: Pain, moderate (4-7) Zolpidem Tartrate (Ambien) 5 mg PO HS PRN PRN Reason: Insomnia Last Admin: 07/08/18 21:49 Dose: 5 mg - Labs Labs: 07/11/18 04:50 07/10/18 06:30 PT 11.6 Seconds (9.8-13.1) 06/25/18 00:40 INR 1.0 06/25/18 00:40 APTT 25.9 Seconds (25.6-37.1) 06/25/18 00:40 - Constitutional Appears: Well - Head Exam Head Exam: ATRAUMATIC, NORMAL INSPECTION, NORMOCEPHALIC - Eye Exam Eye Exam: EOMI, Normal appearance, PERRL Pupil Exam: NORMAL ACCOMODATION, PERRL - ENT Exam ENT Exam: Mucous Membranes Moist, Normal Exam - Neck Exam Neck Exam: Full ROM, Normal Inspection. absent: Lymphadenopathy - Respiratory Exam Respiratory Exam: Clear to Ausculation Bilateral, NORMAL BREATHING PATTERN - Cardiovascular Exam Cardiovascular Exam: REGULAR RHYTHM, +S1, +S2. absent: Murmur - GI/Abdominal Exam GI & Abdominal Exam: Soft, Normal Bowel Sounds. absent: Tenderness Additional comments: wound healing min serosanguinous drainage - Rectal Exam Rectal Exam: Deferred - Exam Exam: NORMAL INSPECTION - Extremities Exam Extremities Exam: Full ROM, Normal Capillary Refill, Normal Inspection. absent: Joint Swelling, Pedal Edema - Back Exam Back Exam: NORMAL INSPECTION - Neurological Exam Neurological Exam: Alert, Awake, CN II-XII Intact, Normal Gait, Oriented x3 - Psychiatric Exam Psychiatric exam: Normal Affect, Normal Mood - Skin Skin Exam: Dry, Intact, Normal Color, Warm Assessment and Plan (1) Asthma Status: Acute (2) Small bowel obstruction Status: Acute (3) Small bowel obstruction, partial Status: Acute (4) Small bowel obstruction, partial Status: Acute (5) Intermittent small bowel obstruction Status: Acute - Assessment and Plan (Free Text) Assessment: afeb off antibiotics wbc normal wound healing eating /drinking possible d/c [place]
[2018-07-12 00:08] VITALS: RESP 18
[2018-07-12] MEDS: Simethicone 40 mg/0.6 ml Liquid (30 ml) PO SCH ×2 (04:38→10:16)
[2018-07-12 08:10] VITALS: BP 120/76; PULSE 70; TEMP 98.1; O2SAT 97
[2018-07-12] MEDS: Enoxaparin 30 mg Syringe SC SCH (10:11)
[2018-07-12] MEDS: Potassium Chloride 20 mEq/15 ml LIQ UD PO SCH (10:15)
== END 2018-07-12 13:55 | disposition home or self-care (01) | DRG 330 ==
LOC: H.ER 23:56 → H.ERHOLD 06-25 02:25 → H.MEDSURG1 06-25 03:33
PROVIDERS: ADMIT Family Medicine; ATTEND Family Medicine
PROC: 0DN80ZZ Release Small Intestine, Open Approach (ICD-10-PCS; 2018-06-27)
PROC: 0DB80ZZ Excision of Small Intestine, Open Approach (ICD-10-PCS; principal; 2018-06-27 13:00)
PROC: 02HV33Z Insertion of Infusion Device into Superior Vena Cava, Percutaneous Approach (ICD-10-PCS; 2018-07-03)
PROC: B518ZZA Fluoroscopy of Superior Vena Cava, Guidance (ICD-10-PCS; 2018-07-03)
PROC: B548ZZA Ultrasonography of Superior Vena Cava, Guidance (ICD-10-PCS; 2018-07-03)
DX: K56.51 Intestinal adhesions [bands], with partial obstruction (principal); D62 Acute posthemorrhagic anemia; E87.6 Hypokalemia; K56.7 Ileus, unspecified; I10 Essential (primary) hypertension; J45.909 Unspecified asthma, uncomplicated; K29.70 Gastritis, unspecified, without bleeding; E78.5 Hyperlipidemia, unspecified; E78.00 Pure hypercholesterolemia, unspecified; Z87.440 Personal history of urinary (tract) infections; Z86.73 Personal history of transient ischemic attack (TIA), and cerebral infarction without residual deficits; Z90.710 Acquired absence of both cervix and uterus